=== PATIENT | male | born 1960 | race Two or more races ===

== ENCOUNTER 2019-04-13 12:30 | Inpatient (IN) ==
[2019-04-13] MEDS ORDERED: ONDANSETRON INJ 2 MG/ML 2 ML VIAL IV STA (12:40)
[2019-04-13] MEDS ORDERED: levETIRAcetam 2,000 MG in DEXTROSE 5% 250 ML IV STA (12:40)
[2019-04-13] MEDS ORDERED: fentaNYL citrate 100 MCG/2 ML VIAL IV STA (12:40)
[2019-04-13] MEDS ORDERED: SODIUM CHLORIDE 0.9% 500 ML IV SCH (12:45)
[2019-04-13 13:04] LABS: Basophils # (auto) 0.01 K/uL (0-0.2); Basophils % (auto) 0.2 %; Eosinophils # (auto) 0.05 K/uL (0-0.5); Eosinophils % (auto) 0.8 %; Hematocrit (blood only) 41.2 % (42-52); Hemoglobin 14.8 g/dL (14.0-18.0); Immature Granulocytes # (auto) 0.01 K/uL (0.00-0.02); Immature Granulocytes % (auto) 0.2 %; Lymphocytes # (auto) 2.18 K/uL (1.2-3.4); Lymphocytes % (auto) 34.3 %; Mean Corpuscular Hemoglobin 31.5 pg (25-34); Mean Corpuscular Hgb Conc 35.9 g/dL (32-36); Mean Corpuscular Volume 87.7 fL (80-100); Mean Platelet Volume 11.5 fL (7.4-10.4); Monocytes # (auto) 0.57 K/uL (0.11-0.59); Neutrophils # (auto) 3.54 K/uL (1.4-6.5); Neutrophils % (auto) 55.5 %; Platelet Count 154 K/uL (130-400); RDW Coefficient of Variation 12.2 % (11.5-14.5); RDW Standard Deviation 39.7 fL (36.4-46.3); White Blood Count 6.36 K/uL (4.8-10.8)
--- NOTE | 2019-04-13 13:06 | Emergency Department Note ---
Entered by Joseline Yoo acting as a scribe for Donavan Kim DO History of Present Illness General Chief complaint: Fall Source: patient, EMS and other (custodial guards) History of Present Illness Onset (ago): hour(s) (this afternoon) Location: head Pain Consistency: + other (episode) Quality: + other (fall/seizure) Associated symptoms: + denies other symptoms (specific abdominal or chest pain) and + other (diffuse pain, mid back pain, inability to move legs or toes, numbness/weakness in legs, hypertension) The patient is a 58 year old male that is presenting to the Emergency Room with complaints of an episode of a seizure following a fall that occurred this afternoon. The patients guards report that he fell down 15 stairs and had a seizure. His guards state that the patient was seen bent over at the top of their stairs when he fell forwards. His guards note that the patient did not have a seizure until he reached the bottom of the stairs. EMS reports that the patient was seizing when they arrived. EMS states that the patient received 1 mg -Ativan due to hypertension. EMS notes that the patients blood pressure has since dropped to a normal range. The patient states that he is unable to move his legs or wiggle his toes. He endorses diffuse pain. He denies any specific chest or abdominal pain. He notes that his back pain is mostly located in the middle of his back. He states that his legs are numb, weak, and painful. The patients guards note that the patients speech is slurred and difficult to understand at baseline. The patients guard reports that they believe that the patient is having seizures and not telling anyone. Home Medications Home Medications Medication Instructions Recorded Confirmed Type [id number] 1 tab PO QAM 04/13/19 04/13/19 History [Triumeq] gabapentin 900 mg PO BID 04/13/19 04/13/19 History lactulose 20 g PO QID PRN 04/13/19 04/13/19 History levetiracetam 1,000 mg PO BID 04/13/19 04/13/19 History perphenazine 8 mg PO BID 04/13/19 04/13/19 History sertraline 50 mg PO QAM 04/13/19 04/13/19 History Allergies Allergy/AdvReac Type Severity Reaction Status Date / Time No Known Allergies Allergy Unverified 04/13/19 13:20 Past Med/Surg History Medical History (Updated 04/13/19 @ 18:06 by CARLOS EDUARDO Bettencourt) Esophageal thickening Hepatitis C HIV (human immunodeficiency virus infection) Peripheral neuropathy Pulmonary nodule Surgical History S/P cholecystectomy Family History Mother Diabetes Sister Seizure Other No significant family history Social History Preferred Language: [place] Communication Ability: Effective Beliefs That Will Affect Care: None Current Living Situation: Other Current Living Situation Comment: [facility] 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 and A total of 10 systems reviewed and were otherwise negative Physical Exam Vital Signs Vital Signs - 24 hr 04/13/19 12:36 04/13/19 12:38 04/13/19 12:40 Temperature Temperature Source Pulse Rate 84 77 77 Pulse Rate from SpO2 Sensor 83 Respiratory Rate 15 18 20 Blood Pressure 149/88 H 150/81 H Blood Pressure Mean 98 94 Pulse Oximetry 97 98 Oxygen Delivery Method Room Air Room Air Sepsis Recent Fever Within 48 Hours Sepsis New/Unexplained Change in Mental Status Sepsis Action Taken by Nursing 04/13/19 12:41 04/13/19 12:51 04/13/19 13:00 Temperature 36.5 C Temperature Source Oral Pulse Rate 78 78 Pulse Rate from SpO2 Sensor 80 Respiratory Rate 16 13 Blood Pressure 149/88 H Blood Pressure Mean 108 Pulse Oximetry 97 94 94 Oxygen Delivery Method Room Air Room Air Room Air Sepsis Recent Fever Within 48 Hours No Sepsis New/Unexplained Change in Mental Status No Sepsis Action Taken by Nursing No Action Required 04/13/19 13:24 04/13/19 13:30 04/13/19 14:00 Temperature Temperature Source Pulse Rate 67 66 65 Pulse Rate from SpO2 Sensor 67 66 64 Respiratory Rate 16 12 14 Blood Pressure 149/84 H 166/97 H 159/95 H Blood Pressure Mean 98 110 115 Pulse Oximetry 93 97 98 Oxygen Delivery Method Room Air Room Air Room Air Sepsis Recent Fever Within 48 Hours Sepsis New/Unexplained Change in Mental Status Sepsis Action Taken by Nursing 04/13/19 14:30 04/13/19 14:31 04/13/19 15:00 Temperature Temperature Source Pulse Rate 60 62 80 Pulse Rate from SpO2 Sensor 61 63 80 Respiratory Rate 14 13 16 Blood Pressure 111/57 L Blood Pressure Mean 75 Pulse Oximetry 94 99 99 Oxygen Delivery Method Sepsis Recent Fever Within 48 Hours Sepsis New/Unexplained Change in Mental Status Sepsis Action Taken by Nursing 04/13/19 15:02 04/13/19 15:30 04/13/19 15:31 Temperature Temperature Source Pulse Rate 68 60 63 Pulse Rate from SpO2 Sensor 68 60 63 Respiratory Rate 20 14 15 Blood Pressure 148/86 H 147/77 H Blood Pressure Mean 107 102 Pulse Oximetry 100 99 99 Oxygen Delivery Method Sepsis Recent Fever Within 48 Hours Sepsis New/Unexplained Change in Mental Status Sepsis Action Taken by Nursing 04/13/19 16:00 04/13/19 16:01 Temperature Temperature Source Pulse Rate 62 64 Pulse Rate from SpO2 Sensor 62 64 Respiratory Rate 16 16 Blood Pressure 129/70 Blood Pressure Mean 89 Pulse Oximetry 100 100 Oxygen Delivery Method Sepsis Recent Fever Within 48 Hours Sepsis New/Unexplained Change in Mental Status Sepsis Action Taken by Nursing GENERAL: The patient is awake and alert. He is very anxious appearing and appears to be in pain. He is immobilized in a long spine board. EYES: The conjunctivae are clear. The pupils are round and reactive. EARS, NOSE, MOUTH AND THROAT: No facial trauma or swelling was noted. NECK: There is diffuse tenderness in the cervical spine. Range of motion te sting is deferred at this time. RESPIRATORY: Normal respiratory effort is noted there is no evidence of wheezing rhonchi or rales CARDIOVASCULAR: Regular rate and rhythm noted there no murmurs rubs or gallops normal S1 normal S2. GASTROINTESTINAL: The abdomen is mildly distended but soft. There is no specific tenderness in the upper abdomen. There is mild tenderness in the lower abdomen. BACK: There is diffuse midline tenderness noted to palpation. No step-off is appreciated. MUSCULOSKELETAL/EXTREMITIES: There is no evidence of gross deformity full range of motion is noted in the hips and shoulders. SKIN: There is no obvious evidence of any rash. No significant pedal edema was noted. NEUROLOGIC: Patient is awake alert and oriented x3. Patient is able to push his feet back and forth. He does have pain with testing of the lower extremities so this is deferred at this time until radiographic imaging of the spine can be obtained. Course Course 1232:The patient was evaluated in room B01. A complete history and physical examination was performed. 1500: Upon reevaluation, the patient is more alert. He states that he is unable to walk or bear weight in his legs. He notes that he is forced to sleep in the top bunk in his cell but he cannot get into it. 1508: I discussed the patient's case with [facility], who recommended observation in the hospital if ambulatory status is not improved. 1513: Will attempt an ambulatory trial with the patient to evaluate for discharge to the custodial for further care. 1528: Patient was uanble to complete an ambulatory trial. The patient fell to h is knees before placing his feet on the ground. 1542: I discussed the patients case with CARLOS EDUARDO Bettencourt, who will evaluate the patient for further management and care with Dr. Vides as the attending physician. Administered Medications Discontinued Medications Fentanyl Citrate (Fentanyl Citrate) 50 mcg IV NOW STA Stop: 04/13/19 12:41 Last Admin: 04/13/19 13:24 Dose: 50 mcg Documented by: [id number] Levetiracetam 2,000 mg/ (Dextrose) 270 mls @ 999 mls/hr IV NOW STA Stop: 04/13/19 12:56 Last Infusion: 04/13/19 13:18 Dose: 0 mls/hr Documented by: [id number] Admin: 04/13/19 13:01 Dose: 999 mls/hr Documented by: [id number] Sodium Chloride (Nss) 500 mls @ 999 mls/hr IV .Q31M MARIO Stop: 04/13/19 13:15 Last Infusion: 04/13/19 13:55 Dose: 0 mls/hr Documented by: [id number] Admin: 04/13/19 13:24 Dose: 999 mls/hr Documented by: [id number] Ioversol (Optiray 320 100ml) 93 ml IV ONCE PRN PRN Reason: Interaction Checking Stop: 04/17/19 13:11 Last Admin: 04/13/19 13:12 Dose: 93 ml Documented by: [id number] Ketorolac Tromethamine (Toradol) 10 mg IV NOW ONE Stop: 04/13/19 14:46 Last Admin: 04/13/19 15:01 Dose: 10 mg Documented by: [id number] Ondansetron HCl (Zofran) 4 mg IV NOW STA Stop: 04/13/19 12:41 Last Admin: 04/13/19 13:24 Dose: 4 mg Documented by: [id number] Medical Decision Making Differential Diagnosis Differential diagnoses include major intracranial, cervical, spinal, thoracic, abdominal, pelvic and neurologic injury. Fracture, contusion, sprain, strain, laceration, abrasions included as well. Medical Records Attestation: I reviewed the patient's medical records. Home Medications Current Medication List: was personally reviewed by me Laboratory Data Attestation: I reviewed the patient's lab results. Result diagrams: 04/13/19 12:54 04/13/19 12:54 Lab Results 04/13/19 04/13/19 04/13/19 Range/Units 12:54 12:54 12:54 WBC 6.36 (4.8-10.8) K/uL RBC 4.70 (4.7-6.1) M/uL Hgb 14.8 (14.0-18.0) g/dL POC Hgb (14.0-18.0) g/dl Hct 41.2 L (42-52) % POC Hct (42-52) % MCV 87.7 (80-100) fL MCH 31.5 (25-34) pg MCHC 35.9 (32-36) g/dL RDW Std Deviation 39.7 (36.4-46.3) fL RDW Coeff of Malachi 12.2 (11.5-14.5) % Plt Count 154 (130-400) K/uL MPV 11.5 H (7.4-10.4) fL Immature Gran % (Auto) 0.2 % Neut % (Auto) 55.5 % Lymph % (Auto) 34.3 % Thurston % (Auto) 9.0 % Eos % (Auto) 0.8 % Baso % (Auto) 0.2 % Immature Gran # (Auto) 0.01 (0.00-0.02) K/uL Neut # (Auto) 3.54 (1.4-6.5) K/uL Lymph # (Auto) 2.18 (1.2-3.4) K/uL Thurston # (Auto) 0.57 (0.11-0.59) K/uL Eos # (Auto) 0.05 (0-0.5) K/uL Baso # (Auto) 0.01 (0-0.2) K/uL POC Sodium (135-144) mEq/L Sodium 137 (136-145) mmol/L POC Potassium (3.3-5.0) mEq/L Potassium 3.7 (3.5-5.1) mmol/L POC Chloride (101-112) mEq/L Chloride 104 (98-107) mmol/L Carbon Dioxide 25 (21-32) mmol/L POC Total CO2 (24-31) mEq/l Anion Gap 7.0 (3-11) POC Anion Gap (16-25) mmol/L POC BUN (7-18) mg/dl BUN 11 (7-18) mg/dl Creatinine 1.05 (0.6-1.4) mg/dl POC Creatinine (0.6-1.3) mg/dl Est Cr Clr Drug Dosing 70.3 ml/min Est GFR ( Amer) 89.6 Est GFR (Non-Af Amer) 77.3 BUN/Creatinine Ratio 10.6 (10-20) Glucose 265 H (70-99) mg/dl POC Glucose (other) (70-99) mg/dl Calcium 9.7 (8.5-10.1) mg/dl POC Ioniz Calcium Fidel (1.12-1.32) mmol/l Total Bilirubin 0.8 (0.2-1) mg/dl AST 46 H (15-37) U/L ALT 32 (12-78) U/L Alkaline Phosphatase 174 H (45-117) U/L Troponin I < 0.015 (0-0.045) ng/ml Total Protein 8.3 H (6.4-8.2) gm/dl Albumin 4.0 (3.4-5.0) gm/dl Globulin 4.3 H (2.5-4.0) gm/dl Albumin/Globulin Ratio 0.9 (0.9-2) Prolactin 11.41 ng/ml Urine Color Urine Appearance (Clear) Urine pH (4.5-7.5) Ur Specific Fisk (1.000-1.030) Urine Protein (Negative) Urine Glucose (UA) (Negative) Urine Ketones (Negative) Urine Blood (Negative) Urine Nitrite (Negative) Urine Bilirubin (Negative) Urine Urobilinogen (Negative) Ur Leukocyte Esterase (Negative) Urine WBC (Auto) (0-5) /hpf Urine RBC (Auto) (0-4) /hpf U Hyaline Cast (Auto) (0-5) /lpf U Epithel Cells (Auto) (0-5) /lpf Urine Bacteria (Auto) (Negative) 04/13/19 04/13/19 Range/Units 12:55 14:08 WBC (4.8-10.8) K/uL RBC (4.7-6.1) M/uL Hgb (14.0-18.0) g/dL POC Hgb 14.6 (14.0-18.0) g/dl Hct (42-52) % POC Hct 43 (42-52) % MCV (80-100) fL MCH (25-34) pg MCHC (32-36) g/dL RDW Std Deviation (36.4-46.3) fL RDW Coeff of Malachi (11.5-14.5) % Plt Count (130-400) K/uL MPV (7.4-10.4) fL Immature Gran % (Auto) % Neut % (Auto) % Lymph % (Auto) % Thurston % (Auto) % Eos % (Auto) % Baso % (Auto) % Immature Gran # (Auto) (0.00-0.02) K/uL Neut # (Auto) (1.4-6.5) K/uL Lymph # (Auto) (1.2-3.4) K/uL Thurston # (Auto) (0.11-0.59) K/uL Eos # (Auto) (0-0.5) K/uL Baso # (Auto) (0-0.2) K/uL POC Sodium 138 (135-144) mEq/L Sodium (136-145) mmol/L POC Potassium 3.8 (3.3-5.0) mEq/L Potassium (3.5-5.1) mmol/L POC Chloride 103 (101-112) mEq/L Chloride (98-107) mmol/L Carbon Dioxide (21-32) mmol/L POC Total CO2 24 (24-31) mEq/l Anion Gap (3-11) POC Anion Gap 16.0 (16-25) mmol/L POC BUN 10 (7-18) mg/dl BUN (7-18) mg/dl Creatinine (0.6-1.4) mg/dl POC Creatinine 0.8 (0.6-1.3) mg/dl Est Cr Clr Drug Dosing ml/min Est GFR ( Amer) Est GFR (Non-Af Amer) BUN/Creatinine Ratio (10-20) Glucose (70-99) mg/dl POC Glucose (other) 270 H (70-99) mg/dl Calcium (8.5-10.1) mg/dl POC Ioniz Calcium Fidel 1.20 (1.12-1.32) mmol/l Total Bilirubin (0.2-1) mg/dl AST (15-37) U/L ALT (12-78) U/L Alkaline Phosphatase (45-117) U/L Troponin I (0-0.045) ng/ml Total Protein (6.4-8.2) gm/dl Albumin (3.4-5.0) gm/dl Globulin (2.5-4.0) gm/dl Albumin/Globulin Ratio (0.9-2) Prolactin ng/ml Urine Color Yellow Urine Appearance Clear (Clear) Urine pH 7.5 (4.5-7.5) Ur Specific Fisk 1.027 (1.000-1.030) Urine Protein Negative (Negative) Urine Glucose (UA) 2+ H (Negative) Urine Ketones Negative (Negative) Urine Blood Negative (Negative) Urine Nitrite Negative (Negative) Urine Bilirubin Negative (Negative) Urine Urobilinogen Negative (Negative) Ur Leukocyte Esterase Negative (Negative) Urine WBC (Auto) 0 (0-5) /hpf Urine RBC (Auto) 0-4 (0-4) /hpf U Hyaline Cast (Auto) 0 (0-5) /lpf U Epithel Cells (Auto) 0-5 (0-5) /lpf Urine Bacteria (Auto) Negative (Negative) Imaging Data Radiologist's Impression: Radiology results as stated below per my review and the radiologist's interpretation: ABDOMEN AND PELVIS CT WITH IV CONTRAST CT DOSE: HISTORY: fall TECHNIQUE: Multiaxial CT images of the abdomen and pelvis were performed following the use of intravenous contrast. A dose lowering technique was utilized adhering to the principles of ALARA. COMPARISON STUDY: None. FINDINGS: No pneumoperitoneum. No pneumatosis. No acute fractures within the visualized osseous structures. Cholecystectomy. The liver, spleen, adrenal glands, pancreas, and kidneys are unremarkable. No hydronephrosis. No retroperitoneal lymphadenopathy. There is a left retroaortic renal vein. The bladder is moderately distended. No pelvic free fluid. No bowel wall thickening or obstruction. Normal appendix. IMPRESSION: 1. No acute traumatic process within the abdomen or pelvis. 2. Moderately distended bladder. ACT 112: Negative or not required by law. Electronically signed by: Severiano Mathew M.D. 04/13/2019 2:[address] cervical spine wo con CLINICAL HISTORY: 58 years-old Male with fall. Acute neck injury status post fall COMPARISON: Head CT of same day TECHNIQUE: Multiple axial CT images of the cervical spine were obtained without contrast. A dose lowering technique was utilized adhering to the principles of ALARA. FINDINGS: Demineralized appearance of the bones. Multilevel disc space narrowing, severe at C5-C6 and C6-C7 with moderate disc space narrowing at C4-C5. Multilevel vacuum disc phenomenon with at least moderate spondylitic spurring and posterior disc osteophyte complex formation. Severe multilevel facet arthrosis. Degenerative bony fusion of the left facets at C2-C3. There is mild convex left curvature of the lower cervical spine. Evaluation of the central canal and neuroforamina is better assessed by MRI. Multilevel foraminal narrowing is noted. No definite high-grade central canal stenosis. No prevertebral soft tissue swelling. Calcified plaque of the carotid bulbs. Partially imaged 10 x 9 mm nodular opacity of the right lung apex with eccentric calcification. Please refer to chest CT of same day for further details. IMPRESSION: No acute cervical spine fracture or subluxation. ACT 112: Negative or not required by law. The above report was generated using voice recognition software. It may contain grammatical, syntax or spelling errors. Electronically signed by: Stevan Galarza M.D. 04/13/2019 1:[address] WITH CONTRAST CT DOSE: HISTORY: fall TECHNIQUE: Multiaxial CT images of the chest were performed following the intravenous administration of contrast. A dose lowering technique was utilized adhering to the principles of ALARA. COMPARISON: None. FINDINGS: There is a 9 mm right apical nodular density containing a punctate calcification. This favors scarring. Otherwise, lungs are clear. The central airways are patent. No pleural effusions. No pneumothorax. No fractures within the visualized osseous structures of the chest. Please refer to the same day abdomen and pelvis CT for further evaluation of the abdominal structures. Bilateral gynecomastia, left greater than right. No mediastinal or hilar lym phadenopathy. Mild thickening of the distal esophagus. Normal caliber thoracic aorta with no evidence for dissection. The heart is borderline enlarged. The main pulmonary arteries are patent. No mediastinal hematoma. IMPRESSION: 1. No acute traumatic process within the chest. 2. A 9 mm right apical nodular density containing punctate calcification. This favors scarring. However, [address] follow-up is recommended to ensure stability. 3. Mild thickening of the distal esophagus. Follow-up nonemergent endoscopy can be used for further evaluation. ACT 112: Positive. There are findings on this exam that require communication between the performing entity and the patient following Patient Test Result Information Act ([place] Act 112) guidelines. Electronically signed by: Severiano Mathew M.D. 04/13/2019 1:[address] head/brain wo con CT DOSE: HISTORY: Trauma. Mental status change. fall TECHNIQUE: Multiaxial CT images of the head were performed without the use of intravenous contrast. A dose lowering technique was utilized adhering to the principles of ALARA. Comparison: None. Findings: The paranasal sinuses and mastoid air cells are clear. The calvarium and skull base are intact. The ventricles and sulci are within normal limits. There is no mass, hematoma, midline shift, or acute infarct. Impression: No acute intracranial abnormality. ACT 112: Negative or not required by law. The above report was generated using voice recognition software. It may contain grammatical, syntax or spelling errors. Electronically signed by: Cooper Cochran M.D. 04/13/2019 1:[address] lumbar spine wo con HISTORY: 58 years-old Male fall acute low back pain status post fall COMPARISON: CT abdomen and pelvis of same day TECHNIQUE: Multiple axial CT images of the cervical spine were obtained without the use of IV contrast. A dose lowering technique was used consistent with the principals of ALARA. FINDINGS: Mild lumbar levoscoliosis. Severe L4-L5 facet arthrosis. 4 mm anterolisthesis L4 on L5 is likely secondary to long-standing facet arthropathy. Multilevel posterior disc osteophyte complex formations. Mild degenerative changes of the SI joints. Evaluation of the central canal and neuroforamina is better assessed by MRI. No acute fracture or subluxation identified. No high-grade central canal stenosis. There is at least mild bilateral foraminal narrowing at L4-L5. Calcified plaque the abdominal aorta. Urinary bladder distention. IMPRESSION: No acute fracture or subluxation. ACT 112: Negative or not required by law. The above report was generated using voice recognition software. It may contain grammatical, syntax or spelling errors. Electronically signed by: Stevan Galarza M.D. 04/13/2019 1:[address] thoracic spine wo con CT DOSE: 2797.77 mGy.cm HISTORY: Trauma. Pain. fakll TECHNIQUE: Multiaxial CT images of the thoracic spine were performed and reformatted in the sagittal and coronal plane without the use of contrast. A dose lowering technique was utilized adhering to the principles of ALARA. COMPARISON: None. FINDINGS: No fractures. No subluxation. Paraspinal soft tissues are unremarkable. Moderate generalized degenerative disc changes throughout. IMPRESSION: No fractures within the thoracic spine. Moderate generalized degenerative disc change. ACT 112: Negative or not required by law. The above report was generated using voice recognition software. It may contain grammatical, syntax or spelling errors. Electronically signed by: Cooper Cochran M.D. 04/13/2019 1:43 PM ECG Data Attestation: I personally reviewed and interpreted this ECG as follows: Indication: + other (trauma) Rate (beats per minute): 70 Rhythm: + normal sinus ECG ST segments: no ST depression and no ST elevation ECG Findings: no PACs and no PVCs Comparison ECG Date: no prior available Blood Pressure Blood Pressure Findings: Elevated blood pressure Blood Pressure Disposition: Referred to patients primary care provider [facility] Narrative The patient is a 58-year-old male who presented to the emergency department after a fall. The history is somewhat limited. It appears the patient has a seizure history and states that he is compliant with his medications. The patient had a fall down multiple stairs. He had signs of head trauma. He states he had very severe back pain and difficulty moving his legs. He did have signs of urinary retention but was able to urinate and empty out most of his bladder. I discussed the patient's laboratory and radiographic studies with him. He was reevaluated multiple times. He was not found to have any acute f racture in the cervical thoracic or lumbar spine. There is no signs of intercranial trauma. The patient tried to ambulate but had significant weakness. It is difficult to determine if this is a chronic finding for the patient. I discussed his condition with the [facility] and they were uncomforta ble with the patient coming back if he could not ambulate at his baseline. It is difficult to tell what his baseline is. For this reason I discussed his case with the on-call [facility] hospitalist group. They have agreed to evaluate the patient in the emergency department for further management and disposition. Impression & Plan Seizure, Fall, Head injury, Lower extremity weakness Discharge Plan Visit Data *Final* Discharge Date/Time: 04/13/19 17:02 Chief Complaint: Fall ED Provider: Donavan Kim Discharge Problem: Seizure, Fall, Head injury, Lower extremity weakness Patient Disposition: Admitted As Inpatient Discharge Instructions Interventions: ED Discharge Assessment Last Done: 04/13/19 17:02 The scribe's documentation has been prepared under my direction and personally reviewed by me in its entirety. I confirm that the note above accurately reflects all work, treatment, procedures, and medical decision making performed by me.
[2019-04-13 13:10] LABS: iSTAT Creatinine 0.8 mg/dl (0.6-1.3); iSTAT Hemoglobin 14.6 g/dl (14.0-18.0); iSTAT Ionized Calcium 1.2 mmol/l (1.12-1.32); iSTAT Potassium 3.8 mEq/L (3.3-5.0)
[2019-04-13] MEDS ORDERED: IOVERSOL 100ml IV PRN (13:12)
--- NOTE | 2019-04-13 13:23 | CT Scan Report ---
CT head/brain wo con CT DOSE: HISTORY: Trauma. Mental status change. fall TECHNIQUE: Multiaxial CT images of the head were performed without the use of intravenous contrast. A dose lowering technique was utilized adhering to the principles of ALARA. Comparison: None. Findings: The paranasal sinuses and mastoid air cells are clear. The calvarium and skull base are int act. The ventricles and sulci are within normal limits. There is no mass, hematoma, midline shift, or acute infarct. Impression: No acute intracranial abnormality. ACT 112: Negative or not required by law. The above report was generated using voice recognition software. It may contain grammatical, syntax or spelling errors. Electronically signed by: Cooper Cochran M.D. 04/13/2019 1:22 PM
[2019-04-13 13:27] LABS: Alanine Aminotransferase 32 U/L (12-78); Albumin Globulin Ratio 0.9 (0.9-2); Alkaline Phosphatase 174 U/L (45-117); Aspartate Aminotransferase 46 U/L (15-37); BUN Creatinine Ratio 10.6 (10-20); Bilirubin,Total 0.8 mg/dl (0.2-1); Blood Urea Nitrogen 11 mg/dl (7-18); Calcium 9.7 mg/dl (8.5-10.1); Carbon Dioxide 25 mmol/L (21-32); Chloride 104 mmol/L (98-107); Creatinine Clr Calc Pharmacy 70.3 ml/min; Est GFR (African American) 89.6; Est GFR (Non-African American) 77.3; Globulin 4.3 gm/dl (2.5-4.0); Glucose 265 mg/dl (70-99); Potassium 3.7 mmol/L (3.5-5.1); Sodium 137 mmol/L (136-145); Total Protein 8.3 gm/dl (6.4-8.2); Troponin I < 0.015 ng/ml (0-0.045)
--- NOTE | 2019-04-13 13:33 | CT Scan Report ---
CT cervical spine wo con CLINICAL HISTORY: 58 years-old Male with fall. Acute neck injury status post fall COMPARISON: Head CT of same day TECHNIQUE: Multiple axial CT images of the cervical spine were obtained without contrast. A dose low ering technique was utilized adhering to the principles of ALARA. FINDINGS: Demineralized appearance of the bones. Multilevel disc space narrowing, severe at C5-C6 and C6-C7 wit h moderate disc space narrowing at C4-C5. Multilevel vacuum disc phenomenon with at least moderate sp ondylitic spurring and posterior disc osteophyte complex formation. Severe multilevel facet arthrosis . Degenerative bony fusion of the left facets at C2-C3. There is mild convex left curvature of the lo wer cervical spine. Evaluation of the central canal and neuroforamina is better assessed by MRI. Mult ilevel foraminal narrowing is noted. No definite high-grade central canal stenosis. No prevertebral s oft tissue swelling. Calcified plaque of the carotid bulbs. Partially imaged 10 x 9 mm nodular opacit y of the right lung apex with eccentric calcification. Please refer to chest CT of same day for furth er details. IMPRESSION: No acute cervical spine fracture or subluxation. ACT 112: Negative or not required by law. The above report was generated using voice recognition software. It may contain grammatical, syntax o r spelling errors. Electronically signed by: Stevan Galarza M.D. 04/13/2019 1:32 PM
--- NOTE | 2019-04-13 13:43 | CT Scan Report ---
CT lumbar spine wo con HISTORY: 58 years-old Male fall acute low back pain status post fall COMPARISON: CT abdomen and pelvis of same day TECHNIQUE: Multiple axial CT images of the cervical spine were obtained without the use of IV contras t. A dose lowering technique was used consistent with the principals of VITA. FINDINGS: Mild lumbar levoscoliosis. Severe L4-L5 facet arthrosis. 4 mm anterolisthesis L4 on L5 is likely seco ndary to long-standing facet arthropathy. Multilevel posterior disc osteophyte complex formations. Mi ld degenerative changes of the SI joints. Evaluation of the central canal and neuroforamina is better assessed by MRI. No acute fracture or subluxation identified. No high-grade central canal stenosis. There is at least mild bilateral foraminal narrowing at L4-L5. Calcified plaque the abdominal aorta. Urinary bladder distention. IMPRESSION: No acute fracture or subluxation. ACT 112: Negative or not required by law. The above report was generated using voice recognition software. It may contain grammatical, syntax o r spelling errors. Electronically signed by: Stevan Galarza M.D. 04/13/2019 1:42 PM
--- NOTE | 2019-04-13 13:44 | CT Scan Report ---
CT thoracic spine wo con CT DOSE: 2797.77 mGy.cm HISTORY: Trauma. Pain. fakll TECHNIQUE: Multiaxial CT images of the thoracic spine were performed and reformatted in the sagittal and coronal plane without the use of contrast. A dose lowering technique was utilized adhering to th e principles of ALARA. COMPARISON: None. FINDINGS: No fractures. No subluxation. Paraspinal soft tissues are unremarkable. Moderate generalize d degenerative disc changes throughout. IMPRESSION: No fractures within the thoracic spine. Moderate generalized degenerative disc change. ACT 112: Negative or not required by law. The above report was generated using voice recognition software. It may contain grammatical, syntax or spelling errors. Electronically signed by: Cooper Cochran M.D. 04/13/2019 1:43 PM
--- NOTE | 2019-04-13 13:49 | CT Scan Report ---
CHEST CT WITH CONTRAST CT DOSE: HISTORY: fall TECHNIQUE: Multiaxial CT images of the chest were performed following the intravenous administration of contrast. A dose lowering technique was utilized adhering to the principles of ALARA. COMPARISON: None. FINDINGS: There is a 9 mm right apical nodular density containing a punctate calcification. This favo rs scarring. Otherwise, lungs are clear. The central airways are patent. No pleural effusions. No pne umothorax. No fractures within the visualized osseous structures of the chest. Please refer to the abdomen and pelvis CT for further evaluation of the abdominal structures. Bilateral gynecomast ia, left greater than right. No mediastinal or hilar lymphadenopathy. Mild thickening of the distal e sophagus. Normal caliber thoracic aorta with no evidence for dissection. The heart is borderline enla rged. The main pulmonary arteries are patent. No mediastinal hematoma. IMPRESSION: 1. No acute traumatic process within the chest. 2. A 9 mm right apical nodular density containing punctate calcification. This favors scarring. [facility] er, [address] follow-up is recommended to ensure stability. 3. Mild thickening of the distal esophagus. Follow-up nonemergent endoscopy can be used for further e valuation. ACT 112: Positive. There are findings on this exam that require communication between the performing entity and the patient following Patient Test Result Information Act ([place] Act 112) guidelines. Electronically signed by: Severiano Mathew M.D. 04/13/2019 1:47 PM
--- NOTE | 2019-04-13 14:06 | CT Scan Report ---
ABDOMEN AND PELVIS CT WITH IV CONTRAST CT DOSE: HISTORY: fall TECHNIQUE: Multiaxial CT images of the abdomen and pelvis were performed following the use of intrave nous contrast. A dose lowering technique was utilized adhering to the principles of ALARA. COMPARISON STUDY: None. FINDINGS: No pneumoperitoneum. No pneumatosis. No acute fractures within the visualized osseous struc tures. Cholecystectomy. The liver, spleen, adrenal glands, pancreas, and kidneys are unremarkable. No hydronephrosis. No retroperitoneal lymphadenopathy. There is a left retroaortic renal vein. The blad nick is moderately distended. No pelvic free fluid. No bowel wall thickening or obstruction. Normal ap pendix. IMPRESSION: 1. No acute traumatic process within the abdomen or pelvis. 2. Moderately distended bladder. ACT 112: Negative or not required by law. Electronically signed by: Severiano Mathew M.D. 04/13/2019 2:04 PM
[2019-04-13 14:26] LABS: Appearance Urine Clear (Clear); Bacteria Urine Automated Negative (Negative); Bilirubin Urine Negative (Negative); Blood Urine Negative (Negative); Cast Urine Automated 0 /lpf (0-5); Color Urine Yellow; Epithelial Cell Urine Auto 0-5 /lpf (0-5); Glucose Urine UA 2+ (Negative); Ketones Urine Negative (Negative); Leukocyte Esterase Urine Negative (Negative); Nitrite Urine Negative (Negative); RBC Urine Automated 0-4 /hpf (0-4); Specific Gravity Urine 1.027 (1.000-1.030); Urobilinogen Urine Negative (Negative); WBC Urine Automated 0 /hpf (0-5); pH Urine 7.5 (4.5-7.5)
[2019-04-13] MEDS ORDERED: KETOROLAC TROMETHAMINE 15 MG/ML VIAL IV ONE (14:45)
[2019-04-13 14:53] LABS: Protein Urine Negative (Negative); Sulfosalicylic Acid Urine Negative (Negative)
--- NOTE | 2019-04-13 16:57 | History & Physical Report ---
Date of Service April 13, 2019 Assessment & Plan (1) Seizure: -Admit to telemetry -Patient presenting to ED from [facility] for evaluation of seizure -History of seizure disorder, currently managed on Keppra -In the ED, head CT negative for acute findings -Received Keppra 2 g IV load -Seizure precautions -neuro consult, case discussed with Allyn Piña PA-C; will obtain brain MRI, EEG, continue home dose of Keppra for now -PRN Ativan for breakthrough seizure (2) Hyperglycemia: -Glucose noted to be 265 on labs -Possibly stress response secondary to seizure -Check Hgb A1c -Recheck BSG and provide NovoLog if needed (3) Peripheral neuropathy: (4) Ambulatory dysfunction: -Patient reports worsening of peripheral neuropathy since seizure today causing him the inability to bear weight on both legs -CT imaging of C-spine, thoracic spine, lumbar spine all negative for acute findings -Continue home dose of gabapentin -PT/OT (5) HIV (human immunodeficiency virus infection): (6) Hepatitis C: -HIV medication Triumeq requested to be sent from [facility] -Patient declines treatment for hepatitis C -Labs obtained from [facility] from 03/27/2019 show CD4 count 928, viral load <40, HCV RNA 9 million (7) DVT prophylaxis: -SCDs History of Present Illness Chief Complaint: Seizure Primary Care Provider: [facility] 58 year old male who presents to the ED for evaluation of seizure. Patient with history of HIV and seizure disorder. Patient reports he thinks he had a seizure throughout the night because he woke up with a laceration over his left eyebrow and there was some blood on the bed rail. Today, patient reports he was walking up the stairs when he started to feel lightheaded and his "tongue began to twist". The next thing he knew he was falling backwards and had an apparent seizure per reports. Patient reports he did bite his tongue. No loss of bowel or bladder function. Reports he otherwise has been feeling well recently. Says he has been compliant with all medications. No recent illnesses, fever, or chills. Denies chest cary and shortness of breath. No abdominal pain, nausea, vomiting, or diarrhea. Denies urinary symptoms. Patient has history of peripheral neuropathy typically managed with gabapentin. In the ED, head CT is negative for acute findings. Cervical spine, chest, ABD/pelvis, thoracic, lumbar CTs are all negative for acute findings. Labs are unremarkable. Patient is hemodynamically stable. Patient reports that since his seizure today, the neuropathy in his feet has severely worsened and he is unable to bear weight. Patient was given IV fentanyl, IV ketorolac, IV Keppra, IV Zofran, IVF. Allergies Allergy/AdvReac Type Severity Reaction Status Date / Time No Known Allergies Allergy Unverified 04/13/19 13:20 Home Medications Home Medications Medication Instructions Recorded Confirmed Type rgaaasje-qpmhugrwjpdk-irhtifh 1 tab PO QAM 04/13/19 04/13/19 History [Triumeq] gabapentin 900 mg PO BID 04/13/19 04/13/19 History lactulose 20 g PO QID PRN 04/13/19 04/13/19 History levetiracetam 1,000 mg PO BID 04/13/19 04/13/19 History perphenazine 8 mg PO BID 04/13/19 04/13/19 History sertraline 50 mg PO QAM 04/13/19 04/13/19 History Past Med/Surg History Medical History (Updated 04/13/19 @ 18:06 by CARLOS EDUARDO Bettencourt) Esophageal thickening Hepatitis C HIV (human immunodeficiency virus infection) Peripheral neuropathy Pulmonary nodule Surgical History S/P cholecystectomy Family History Mother Diabetes Sister Seizure Other No significant family history Social History Preferred Language: Armenian Communication Ability: Effective Beliefs That Will Affect Care: None Current Living Situation: Other Current Living Situation Comment: [facility] 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 Other Information That Helps Us Care for You: No Feels Safe at Home: Yes Smoking Status: Former smoker Hx Alcohol Use: No Hx Substance Use: Yes substance use type: crack/cocaine and heroin Last Used Substance Other:: ~ 2011 Review of Systems Review of Systems: ROS per HPI, all other systems reviewed and negative Physical Exam Constitutional: WD/WN, vitals as above Eyes: PERRL, conjunctivae normal, anicteric sclerae ENMT: external ear and nose normal, oropharynx normal Respiratory: normal respiratory effort, lungs clear to auscultation Cardiovascular: Rate/Rhythm: regular rate and regular rhythm Vessels: n ormal peripheral pulses Extremities: no edema Gastrointestinal (Abdomen): normal bowel sounds, soft, nontender, no hepatosplenomegaly Musculoskeletal: Extremities: no cyanosis and no clubbing Strength 4/5 throughout Skin: no rashes, warm and dry Trauma: + abrasion (Small abrasion noted over left superior orbital bone) Neurologic: PERRL, EOMI, accommodation nl, no face palsy, no dysarthria moves all extremities and awake; no focal motor deficits Motor/Sensory: no pronator drift Psychiatric: A+Ox3, euthymic affect Results & Data Vital Signs (Past 12 Hours) Vital Signs Temp Pulse Resp BP Pulse Ox 04/13/19 16:01 64 16 129/70 100 04/13/19 16:00 62 16 100 04/13/19 15:31 63 15 147/77 H 99 04/13/19 15:30 60 14 99 04/13/19 15:02 68 20 148/86 H 100 04/13/19 15:00 80 16 99 04/13/19 14:31 62 13 111/57 L 99 04/13/19 14:30 60 14 94 04/13/19 14:00 65 14 159/95 H 98 04/13/19 13:30 66 12 166/97 H 97 04/13/19 13:24 67 16 149/84 H 93 04/13/19 13:00 78 13 94 04/13/19 12:51 94 04/13/19 12:41 36.5 C 78 16 149/88 H 97 04/13/19 12:40 77 20 04/13/19 12:38 77 18 150/81 H 98 04/13/19 12:36 84 15 149/88 H 97 Laboratory Results Short CBC 04/13/19 Range/Units 12:54 WBC 6.36 (4.8-10.8) K/uL Hgb 14.8 (14.0-18.0) g/dL Hct 41.2 L (42-52) % Plt Count 154 (130-400) K/uL BMP 04/13/19 12:54 Sodium 137 Potassium 3.7 Chloride 104 Carbon Dioxide 25 BUN 11 Creatinine 1.05 Glucose 265 H Calcium 9.7 Cardiac Enzymes 04/13/19 Range/Units 12:54 Troponin I < 0.015 (0-0.045) ng/ml Liver Function 04/13/19 Range/Units 12:54 Total Bilirubin 0.8 (0.2-1) mg/dl AST 46 H (15-37) U/L ALT 32 (12-78) U/L Alkaline Phosphatase 174 H (45-117) U/L Albumin 4.0 (3.4-5.0) gm/dl Urine 04/13/19 Range/Units 14:08 Urine Color Yellow Urine Appearance Clear (Clear) Urine pH 7.5 (4.5-7.5) Ur Specific [place] 1.027 (1.000-1.030) Urine Protein Negative (Negative) Urine Glucose (UA) 2+ H (Negative) Diagnostic Findings THORACIC SPINE CT IMPRESSION: No fractures within the thoracic spine. Moderate generalized degenerative disc change. LUMBAR SPINE CT IMPRESSION: No acute fracture or subluxation. HEAD CT IMPRESSION: No acute intracranial abnormality. CHEST CT IMPRESSION: 1. No acute traumatic process within the chest. 2. A 9 mm right apical nodular density containing punctate calcification. This favors scarring. However, [address] follow-up is recommended to ensure stability. 3. Mild thickening of the distal esophagus. Follow-up nonemergent endoscopy can be used for further evaluation. CERVICAL SPINE CT IMPRESSION: No acute cervical spine fracture or subluxation. CT ABD/PELVIS IMPRESSION: 1. No acute traumatic process within the abdomen or pelvis. 2. Moderately distended bladder. Code Status & VTE Plan Code Status Patient is a full code as per my discussion with him. VTE Prophylaxis Plan VTE Prophylaxis will be ordered: Yes Supervising Physician Co-Signing Physician Notes HISTORY: Record reviewed. Patient interviewed and examined in ED. Care coordinated with CARLOS EDUARDO Bettencourt. Please refer to her documentation for complete history. Briefly, 58 YO male with history of seizure disorder, HIV, hep C, cirrhosis, and other problems. Brought to ED because of 2 apparent seizures. Denies fever. Mild headache. No focal neuro symptoms. EXAM: General- no distress HEENT- abrasion left forehead; sclerae anicteric Lungs- clear to auscultation; no respiratory distress Cardiovascular- RRR; no murmur; no gallop; no JVD; no pretibial edema Abdomen- + bowel sounds, soft, nontender Extremities- no cyanosis; no calf tenderness Neuro- alert, oriented; PERRL, EOMI; no facial palsy; no dysarthria or aphasia; motor 5/5 bilat Skin- warm & dry DATA: Hemoglobin 14.8, white count 6360, platelet count 154,000. Normal electrolytes, BUN 11, creatinine 1.05, random glucose 265. Total bilirubin 0.8, AST 46, ALT 32, alkaline phosphatase 174. Other lab studies as noted. CT head unremarkable per Radiology. CT cervical spine did not show any fracture or subluxation. CT thoracic spine did not show any fractures or subluxation. Moderate degenerative disc disease noted. CT lumbar spine demonstrated mild lumbar levoscoliosis, severe L4-L5 facet arthrosis, 4 mm anterolisthesis L4-L5, multilevel disc osteophyte complex formations, mild degenerative changes of SI joints. CT chest negative for traumatic injury. 9 mm right apical nodular density with punctate calcification noted. Follow-up CT in 6 months recommended. Mild thickening of distal esophagus was also noted. CT of abdomen pelvis negative for thoracic injury or other significant findings. EKG performed at 1249 reviewed and demonstrated normal sinus rhythm at 70 / minute, no acute changes. ASSESSMENT AND PLAN: Recurrent seizure. No acute abnormalities on CT head. Check MRI. Continue levetiracetam. Seizure precautions. Consult Neurology. History of HIV. Continue antiviral therapy with Triumeq. Recent viral load was undetectable. History of hepatitis C with associated cirrhosis. Patient is opted not to receive antiviral therapy. Right apical pulmonary nodule noted on CT. Consult Pulmonary Medicine. Thickening of distal esophagus noted on CT. Patient reports dysphagia. Consult GI. Please refer to BRANDY Ye's documentation for discussion of other issues.
[2019-04-13] MEDS ORDERED: LORazepam 1 MG/2 ML VIAL IV PRN (17:37)
[2019-04-13] MEDS ORDERED: GLUCOSE 10 TABS/TUBE PO PRN (18:06)
[2019-04-13] MEDS ORDERED: GLUCOSE 40% GEL 15 GM TUBE PO PRN (18:06)
[2019-04-13] MEDS ORDERED: DEXTROSE 50% 50 ML SYRINGE IV PRN (18:06)
[2019-04-13] MEDS ORDERED: GLUCAGON FOR INJ 1 MG VIAL SQ PRN (18:06)
[2019-04-13] MEDS ORDERED: CARBOHYDRATES FOR HYPOGLYCEMIA PO PRN (18:06)
[2019-04-13] MEDS: PERPHENAZINE 2 MG TABLET PO SCH (20:57)
[2019-04-13] MEDS: GABAPENTIN 300 MG CAP PO SCH (20:58)
[2019-04-13] MEDS: levETIRAcetam 500 MG TAB PO SCH (20:58)
[2019-04-13] MEDS: INSULIN ASPART 100 UNITS/ML 3 ML PEN SC SCH (21:00)
[2019-04-13] MEDS ORDERED: LORazepam 0.5 MG/1 ML VIAL IV STA (22:05)
[2019-04-13] MEDS ORDERED: GADOBUTROL 65ML VIAL IV PRN (23:05)
--- NOTE | 2019-04-14 06:29 | Magnetic Resonance Report ---
MR brain seizure wo/w con CLINICAL HISTORY: seizure mental status change COMPARISON STUDY: No previous studies for comparison. TECHNIQUE: Utilizing a 1.5 Yasemin magnet and dedicated coil, multiplanar, multiecho imaging of the br ain was performed pre and postcontrast administration. IV administration of 8 mL of Gadavist contras t was uneventful. Thin cut coronal T2 imaging was performed according to seizure protocol. FINDINGS: Diffusion images show no evidence for an acute ischemic process. Several small foci of incr eased signal within the periventricular deep white matter regions probably secondary to age-related c hronic small vessel change. Mild component of cerebral atrophy. The ventricular system is midline. Sella and parasellar regions are unremarkable. IMPRESSION: No acute process for age. ACT 112: Negative or not required by law. The above report was generated using voice recognition software. It may contain grammatical, syntax or spelling errors. Electronically signed by: Cooper Cochran M.D. 04/14/2019 6:28 AM
[2019-04-14 06:34] LABS: Hematocrit (blood only) 42.9 % (42-52); Hemoglobin 15.2 g/dL (14.0-18.0); Mean Corpuscular Hemoglobin 32.1 pg (25-34); Mean Corpuscular Hgb Conc 35.4 g/dL (32-36); Mean Corpuscular Volume 90.7 fL (80-100); Mean Platelet Volume 11.5 fL (7.4-10.4); Platelet Count 148 K/uL (130-400); RDW Coefficient of Variation 12.4 % (11.5-14.5); RDW Standard Deviation 41.5 fL (36.4-46.3); Red Blood Count 4.73 M/uL (4.7-6.1); White Blood Count 6.02 K/uL (4.8-10.8)
[2019-04-14 06:58] LABS: Estimated Average Glucose 209 mg/dl; Hemoglobin A1C 8.9 % (4.5-5.6)
[2019-04-14 07:08] LABS: BUN Creatinine Ratio 12.8 (10-20); Calcium 8.9 mg/dl (8.5-10.1); Creatinine Clr Calc Pharmacy 62.1 ml/min; Est GFR (Non-African American) 70.8; Potassium 3.8 mmol/L (3.5-5.1)
[2019-04-14] MEDS: GABAPENTIN 300 MG CAP PO SCH (08:27)
[2019-04-14] MEDS: levETIRAcetam 500 MG TAB PO SCH ×2 (08:27→21:04)
[2019-04-14] MEDS: PERPHENAZINE 2 MG TABLET PO SCH ×2 (08:27→22:42)
[2019-04-14] MEDS: SERTRALINE HCL 50 MG TABLET PO SCH (08:27)
[2019-04-14] MEDS: INSULIN ASPART 100 UNITS/ML 3 ML PEN SC SCH ×4 (08:29→21:06)
[2019-04-14] MEDS: TRIUMEQ PO SCH (09:14)
--- NOTE | 2019-04-14 09:27 | Gastrointestinal Consultation ---
Date of Consultation April 14, 2019 Assessment & Plan (1) Esophageal thickening: Pt is asymptomatic (report of coughing/gagging with swallowing more likely related to having few teeth and not using dentures). He does not c/o any discomfort or feeling of food being lodged in the lower chest after swallowing. He is at risk for esophageal cancer in light of his hx of HIV. He is also at risk for esophageal candidiasis but does not seem to have symptoms suggesting that (nausea, lower esophageal dysphagia). Plan: 1. Will arrange OP EGD in 4 weeks here at [facility]. Our office will call [facility] to arrange. 2. Consider daily Miralax for constipation. 3. GI will sign off. Please notify us if new/worsened GI issues. Present on Admission?: Yes Supervising Physician Co-Signing Physician Notes I performed a history and physical examination of the patient, including specifically on physical exam - soft, nontender abdomen. I have discussed the patient's management with Rodriguez. Please refer to the nurse practitioner's note for the documented findings and plan of care. 58 years old male patient found to have incidental esophageal thickening on CT scan, he is asymptomatic. Recommend: EGD as OP. Recall Gi if needed. History of Present Illness Reason for Consultation: Esophageal thickening Requesting Physician: Patito Ye NP/Dr. Lino Attending Physician: Checo Lino MD History of Present Illness Mr. Td Cyr is a 58 yr old male prisoner at [facility] with a hx of HIV, Seizures, DM-2, insulin requiring, diabetic neuropathy who was brought to [facility] for a fall followed by a witnessed seizure. GI is consulted because CT of the chest suggested esophageal thickening. The pt has poor dentition and tells me that he often gags or coughs out food when trying to swallow but does not have any feeling of food being stuck in the lower chest. He also denies any pain in the throat or chest during or after swallowing. He has had some reflux, but very rarely, maybe once a month or so. When asked, if he eats soft/liquid foods due to limited dentition, he states "no," that he, "doesn't like those." Allergies Allergy/AdvReac Type Severity Reaction Status Date / Time No Known Allergies Allergy Unverified 04/13/19 13:20 Home Medications Home Medications Medication Instructions Recorded Confirmed Type wvpntsja-plcgiazfloud-hwpptcl 1 tab PO QAM 04/13/19 04/13/19 History [Triumeq] gabapentin 900 mg PO BID 04/13/19 04/13/19 History lactulose 20 g PO QID PRN 04/13/19 04/13/19 History levetiracetam 1,000 mg PO BID 04/13/19 04/13/19 History perphenazine 8 mg PO BID 04/13/19 04/13/19 History sertraline 50 mg PO QAM 04/13/19 04/13/19 History Patient History Medical History (Updated 04/13/19 @ 18:06 by CARLOS EDUARDO Bettencourt) Esophageal thickening Hepatitis C HIV (human immunodeficiency virus infection) Peripheral neuropathy Pulmonary nodule Surgical History S/P cholecystectomy Family History Mother Diabetes Sister Seizure Other No significant family history Social History Preferred Language: Latvian Communication Ability: Effective Beliefs That Will Affect Care: None Current Living Situation: Other Current Living Situation Comment: [facility] 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 ) and + constipation (Tells me that he hasn't passed a BM in 7 days, that he sometimes doesn't pass a BM for months. ) Musculoskeletal: + muscle weakness (reports bilateral lower leg and foot pain, weakness and decreased sensation) Integumentary: no rash Neurologic: + falls Psychiatric: no problem reported Physical Exam Constitutional: WD/WN, vitals as above Eyes: PERRL, conjunctivae normal, anicteric sclerae ENMT: Few teeth, no lower molars, no upper incisors, only a few upper molars. No evidence of oral thrush. Neck: trachea midline, no thyromegaly Respiratory: normal respiratory effort, lungs clear to auscultation Cardiovascular: RRR, no murmur, no edema Gastrointestinal (Abdomen): normal bowel sounds, soft, nontender, no hepatosplenomegaly Skin: no rashes, warm and dry Neurologic: PERRL, EOMI, accommodation nl, no face palsy, no dysarthria Psychiatric: A+Ox3, euthymic affect Results & Data Vital Signs (Past 12 Hours) Vital Signs Temp Pulse Pulse Resp BP Pulse Ox 04/14/19 07:31 36.5 C 77 19 128/79 97 04/14/19 06:19 36.5 C 63 20 131/71 98 04/14/19 04:16 36.5 C 65 19 122/79 95 04/14/19 01:52 69 04/13/19 23:13 36.6 C 67 18 122/75 97 Laboratory Results WBC 6, Hb 15,Hct 42, Platelets 152, Na 136, K 3.8, BUN 4, Cr1.13, glucose 168. Diagnostic Findings CT chest 04/13/19: 1. No acute traumatic process within the chest. 2. A 9 mm right apical nodular density containing punctate calcification. This favors scarring. However, [address] follow-up is recommended to ensure stability. 3. Mild thickening of the distal esophagus. Follow-up nonemergent endoscopy can be used for further evaluation.
--- NOTE | 2019-04-14 10:27 | Electroencephalogram ---
EEG Procedure Note Date of Service April 14, 2019 Start / End Times Start Time: 0842 End Time: 0902 Referring Physician Patito THIBODEAUX History Breakthrough seiz Home Medication List Home Medications Medication Instructions Recorded Confirmed Type [id number] 1 tab PO QAM 04/13/19 04/13/19 History [Triumeq] gabapentin 900 mg PO BID 04/13/19 04/13/19 History lactulose 20 g PO QID PRN 04/13/19 04/13/19 History levetiracetam 1,000 mg PO BID 04/13/19 04/13/19 History perphenazine 8 mg PO BID 04/13/19 04/13/19 History sertraline 50 mg PO QAM 04/13/19 04/13/19 History Inpatient Medication List Gabapentin (Neurontin) 900 mg PO BID [facility] Stop: 05/13/19 20:59 Last Admin: 04/14/19 08:27 Dose: 900 mg Documented by: [id number] Admin: 04/13/19 20:58 Dose: 900 mg Documented by: [id number] Gadobutrol (Gadavist 65ml) 8 ml IV ONCE PRN PRN Reason: Interaction Checking Stop: 04/17/19 23:04 Last Admin: 04/13/19 23:05 Dose: 8 ml Documented by: [id number] Lorazepam (Ativan) 1 mg in 2 mls @ 2 mls/min IV Q4H PRN PRN Reason: seizure Stop: 05/13/19 17:36 Last Admin: 04/13/19 22:15 Dose: 2 mls/min Documented by: [id number] Insulin Aspart (Novolog Flexpen) 0 units SC ACHS [facility] Stop: 05/13/19 20:59 Last Admin: 04/14/19 08:29 Dose: 3 units Documented by: [id number] Cosigned by: [id number] Admin: 04/13/19 21:00 Dose: 2 units Documented by: [id number] Cosigned by: [id number] Levetiracetam (Keppra) 1,000 mg PO BID [facility] Stop: 05/13/19 20:59 Last Admin: 04/14/19 08:27 Dose: 1,000 mg Documented by: [id number] Admin: 04/13/19 20:58 Dose: 1,000 mg Documented by: [id number] Triumeq: Non- Formulary Patient's Own Med 1 ea PO QAM [facility]; Protocol Stop: 05/14/19 08:59 Last Admin: 04/14/19 09:14 Dose: 1 ea Documented by: [id number] Perphenazine (Trilafon) 8 mg PO BID [facility] Stop: 05/13/19 20:59 Last Admin: 04/14/19 08:27 Dose: 8 mg Documented by: [id number] Admin: 04/13/19 20:57 Dose: 8 mg Documented by: [id number] Sertraline HCl (Zoloft) 50 mg PO QAM [facility] Stop: 05/14/19 08:59 Last Admin: 04/14/19 08:27 Dose: 50 mg Documented by: [id number] Discontinued Medications Fentanyl Citrate (Fentanyl Citrate) 50 mcg IV NOW STA Stop: 04/13/19 12:41 Last Admin: 04/13/19 13:24 Dose: 50 mcg Documented by: [id number] Levetiracetam 2,000 mg/ (Dextrose) 270 mls @ 999 mls/hr IV NOW STA Stop: 04/13/19 12:56 Last Infusion: 04/13/19 13:18 Dose: 0 mls/hr Documented by: [id number] Admin: 04/13/19 13:01 Dose: 999 mls/hr Documented by: [id number] Sodium Chloride (Nss) 500 mls @ 999 mls/hr IV .Q31M [facility] Stop: 04/13/19 13:15 Last Infusion: 04/13/19 13:55 Dose: 0 mls/hr Documented by: [id number] Admin: 04/13/19 13:24 Dose: 999 mls/hr Documented by: [id number] Lorazepam (Ativan) 0.5 mg in 1 mls @ 1 mls/min IV NOW STA Stop: 04/13/19 22:06 Last Admin: 04/14/19 00:02 Dose: Not Given Documented by: [id number] Ioversol (Optiray 320 100ml) 93 ml IV ONCE PRN PRN Reason: Interaction Checking Stop: 04/17/19 13:11 Last Admin: 04/13/19 13:12 Dose: 93 ml Documented by: [id number] Ketorolac Tromethamine (Toradol) 10 mg IV NOW ONE Stop: 04/13/19 14:46 Last Admin: 04/13/19 15:01 Dose: 10 mg Documented by: [id number] Ondansetron HCl (Zofran) 4 mg IV NOW STA Stop: 04/13/19 12:41 Last Admin: 04/13/19 13:24 Dose: 4 mg Documented by: [id number] Description This is a 21 electrode EEG with a single channel dedicated to limited EKG. The electrodes were placed in accordance with the International 10-20 system. This EEG was performed during wakefulness as a bedside recording is of good technical quality. Few or no muscle or movement artifact were recorded. Photic stimulation was performed. Drowsiness and light sleep are not recorded. Video analysis of patient movement and behavior is obtained In addition conditions there is evidence for normal-appearing background rhythm in the alpha range of up to 10 Hz and maximum frequency of up to 25 V maximum amplitude. This is maximum posterior head regions and is bilaterally symmetrical. Modest amplitude mid frequency central and symmetrical theta activity is seen beta activity seen bifrontally And no time is evidence for potentially epileptogenic activity for polyspike and spike-wave burst, focal sharp waves or focal spikes Photic stimulation provokes a modest driving response without a photoparoxysmal photo myogenic component Interpretation This is a normal EEG during wakefulness without evidence for focal or generalized encephalopathy without evidence for potentially epileptogenic activity Clinical Correlation This EEG is normal, does not reveal evidence for focal or generalized abnormalities and reveals no evidence for ongoing or potential epileptogenic activity but the absence of the latter unfortunately does not exclude the diagnosis of seizure disorder and clinical correlation is required Justin Sales MD
[2019-04-14] MEDS: ACETAMINOPHEN 325 MG TAB PO PRN (13:08)
--- NOTE | 2019-04-14 13:55 | Neurology Consultation ---
Date of Consultation April 14, 2019 Assessment & Plan (1) Seizure: 1. Keppra 1000 mg BID ongoing for a number of years without seizure 2. increase keppa to 1250 mg BID 3. Keppra level in 2 weeks as outpatient 4. seizure precautions- no heights, no bathing or swimming alone- he is no driv ing is not an issue at this point 5. lower bunk in correction (2) Peripheral neuropathy: 1. gabepentin 900 mg BID- it may help to administer 600 mg 600 mg 600 mg to have a more constant level 2. may need cymbalta or lyrica if gabepentin no longer is helping 3. will need to watch renal function GFR 30-60 max 1800 4. check ammonia level 5. questions use of perphenazine as it is not recommended in liver disease 6. may need a walker issued as he is having more ambulatory issues from the peripheral neuropathy - avoid stairs (3) Ambulatory dysfunction: 1. PT/OT to assess and make recommendations Supervising Physician Co-Signing Physician Notes I have seen and discussed above patient with Dr Justin Sales, neurology I have seen briefly examined this man and discussed his case with Allyn Hendricks PA-C and his current attending physician. The history is a bit vague and he may well have had a seizure or 2 but there are few or no clinical manifestations, the EEG is normal, and I think it [place] in this setting to simply increase his Keppra from 1000 twice a day to 1250 mg twice a day and continue to observe him. 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 but also has hepatitis C and HIV and both of these along with the treatment for them could be contributing factors He claims to be weaker now that he has had these 2 seizure-like events but on exam he really does not have that much loss of strength and does have a moderately severe loss of small and large fiber modalities below the knees Keller spinal imaging using CT technology has shown no significant fractures or dislocations and he really does not have anything to suggest a myelopathy At this point all we are suggesting is is his Neurontin dose be spread out a bit to 600 mg 3 times a day from 900 mg twice a day in hopes that this will give him more consistent serum levels and better control of his neuropathic pain and will also serve to add to his anticonvulsant regimen We are recommending that he be discharged today unless there are medical issues to prevent it. I do not think he needs to be followed up neurologically unless the correction medical staff would feel we need to do so in which case we would be happy to work him into our schedule Justin Sales MD History of Present Illness Reason for Consultation: seizure Requesting Physician: Checo Lino MD Attending Physician: Checo Lino MD History of Present Illness Td is a 58 year old incarcerated male with PMH HIV, Seizure disorder peripheral neuropathy, Hep C, hyperglycemia who presents to the ED for evaluation of seizure. He had a seizure throughout the night because he woke up with a laceration over his left eyebrow and there was some blood on the bed rail. He was then walking up the stairs when he started to feel lightheaded and his "tongue began to twist". The next thing he knew he was falling backwards and had another seizure and bit his tongue. He has been compliant with all medications. He has been on gabapentin for years but his neuropathy is getting worse. He is up today working with PT and walking in the gardner with a walker which he states he does not have at the correction. He has had HIV since age 19 and seizures as a child in [place]. denies CP, bowel or bladder issues, vision changes, swallowing issues, one sided weakness, numbness tingling. Allergies Allergy/AdvReac Type Severity Reaction Status Date / Time No Known Allergies Allergy Unverified 04/13/19 13:20 Home Medications Home Medications Medication Instructions Recorded Confirmed Type lrpyabms-mlbflccpejpz-knrzkig 1 tab PO QAM 04/13/19 04/13/19 History [Triumeq] gabapentin 900 mg PO BID 04/13/19 04/13/19 History lactulose 20 g PO QID PRN 04/13/19 04/13/19 History levetiracetam 1,000 mg PO BID 04/13/19 04/13/19 History perphenazine 8 mg PO BID 04/13/19 04/13/19 History sertraline 50 mg PO QAM 04/13/19 04/13/19 History Patient History Medical History (Updated 04/13/19 @ 18:06 by CARLOS EDUARDO Bettencourt) Esophageal thickening Hepatitis C HIV (human immunodeficiency virus infection) Peripheral neuropathy Pulmonary nodule Surgical History S/P cholecystectomy Family History Mother Diabetes Sister Seizure Other No significant family history Social History Preferred Language: Upper Sorbian Communication Ability: Effective Beliefs That Will Affect Care: None Current Living Situation: Other Current Living Situation Comment: [facility] 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 Other Information That Helps Us Care for You: No Feels Safe at Home: Yes Smoking Status: Former smoker Hx Alcohol Use: No Hx Substance Use: Yes substance use type: crack/cocaine and heroin Last Used Substance Other:: ~ 2011 Physical Exam Physical Exam: Physical Exam: Constitutional: appearance nourished, healthy and normal Ears, Nose, Mouth and Throat: mucous membranes moist, no injection and skin normal, eyes normal Cardiovascular: normal S-1 and S-2 and regular rate and rhythm Respiratory: course breath sounds with wheezing Musculoskeletal: no peripheral edema and decreased distal pulses Skin: no stigmata of neurocutaneous disease noted and normal and intact Eyes: extraocular muscles intact (EOMI) and pupils equal, round and reactive to light (PERRL) NEUROLOGIC EXAMINATION: Mental status: Alert and interactive Oriented to full date and location Oriented to person Speech fluent with no evidence of aphasia Cranial Nerves smile eye brow raise Reflexes: Deep tendon reflexes were symmetrical and decreased bilaterally Sensory: decreased to light touch, vibration, to mid mai, GT proprioception absent Coordination: finger to nose no bi pass Gait/Stance: Posture normal. Gait normal: tandem gait sensory walking with walker. Motor: Negative for pronator drift of out stretched arms with eyes closed. Strength: biceps triceps hand straw boss bilaterally 5/5, hip flex patellar, plantar flex ext 5/5 Results & Data Vital Signs (Past 12 Hours) Vital Signs Temp Pulse Pulse Resp BP Pulse Ox 04/14/19 11:41 36.4 C L 77 16 130/67 95 04/14/19 08:00 69 04/14/19 07:31 36.5 C 77 19 128/79 97 04/14/19 06:19 36.5 C 63 20 131/71 98 04/14/19 04:16 36.5 C 65 19 122/79 95 Laboratory Results Abnormal lab results 04/13/19 04/13/19 04/13/19 Range/Units 14:08 17:53 18:01 MPV (7.4-10.4) fL Glucose (70-99) mg/dl POC Glucose 192 H (70-99) Hemoglobin A1c 8.9 H (4.5-5.6) % Urine Glucose (UA) 2+ H (Negative) 04/13/19 04/14/19 04/14/19 Range/Units 20:23 05:52 05:52 MPV 11.5 H (7.4-10.4) fL Glucose 170 H (70-99) mg/dl POC Glucose 211 H (70-99) Hemoglobin A1c (4.5-5.6) % Urine Glucose (UA) (Negative) 04/14/19 04/14/19 Range/Units 07:31 11:39 MPV (7.4-10.4) fL Glucose (70-99) mg/dl POC Glucose 168 H 165 H (70-99) Hemoglobin A1c (4.5-5.6) % Urine Glucose (UA) (Negative) Diagnostic Findings abdomen/pelvis CT - No acute traumatic process within the abdomen or pelvis. Moderately distended bladder. c spine CT- No acute cervical spine fracture or subluxation. Chest CT- No acute traumatic process within the chest. A 9 mm right apical nodular density containing punctate calcification. This favors scarring. However, [address] follow-up is recommended to ensure stability. Mild thickening of the distal esophagus. Follow-up nonemergent endoscopy can be used for further evaluation. CT head-No acute intracranial abnormality. CT L spine-No acute fracture or subluxation. CT T spine-no fractures within the thoracic spine. Moderate generalized degenerative disc change. MRI brain No acute process for age.
--- NOTE | 2019-04-14 14:25 | Hospitalist Progress Note ---
Date of Service April 14, 2019 Assessment & Plan (1) Seizure: -Admit to telemetry -Patient presenting to ED from [facility] for evaluation of seizure -History of seizure disorder, currently managed on Keppra -In the ED, head CT negative for acute findings -Received Keppra 2 g IV load -Seizure precautions -neuro consult, case discussed with Allyn Piña PA-C; will obtain brain MRI, EEG, continue home dose of Keppra for now -Remains stable in the telemetry unit for seizures --EEG has been done and the results are pending (2) Hyperglycemia: -Glucose noted to be 265 on labs -Possibly stress response secondary to seizure -Check Hgb A1c-8.9 -Recheck BSG and provide NovoLog if needed -We will have diabetic diet -Metformin on discharge (3) Peripheral neuropathy: Secondary to longstanding diabetes (4) Ambulatory dysfunction: -Patient reports worsening of peripheral neuropathy since seizure today causing him the inability to bear weight on both legs -CT imaging of C-spine, thoracic spine, lumbar spine all negative for acute findings -Continue home dose of gabapentin -PT/OT (5) HIV (human immunodeficiency virus infection): (6) Hepatitis C: -HIV medication Triumeq requested to be sent from [facility] -Patient declines treatment for hepatitis C -Labs obtained from [facility] from 03/27/2019 show CD4 count 928, viral load <40, HCV RNA 9 million (7) DVT prophylaxis: -SCDs Subjective 04/14 The patient was seen and examined in telemetry unit He has significant past medical history of HIV , hepatitis C and diabetes with peripheral neuropathy He was admitted with the possible seizures with a history of seizure disorder He has been feeling a lot better this morning and complains to have weakness and numbness involving the legs Review of Systems Review of Systems: All systems reviewed and are unremarkable except as noted below Neurologic: Numbness involving lower extremities Physical Exam Physical Exam: Lying in bed without any acute symptoms Constitutional: well developed and well nourished; no acute distress and not ill appearing Eyes: PERRL, conjunctivae normal, anicteric sclerae ENMT: external ear and nose normal, oropharynx normal Neck: trachea midline, no thyromegaly Respiratory: normal respiratory effort Auscultation: lungs clear to auscultation bilaterally Cardiovascular: Rate/Rhythm: regular rate and regular rhythm Heart Sounds: no murmur Vessels: normal peripheral pulses Extremities: no edema Gastrointestinal (Abdomen): Inspection/Auscultation: abdomen normal to inspection and normal bowel sounds Musculoskeletal: Extremities: no cyanosis and no clubbing No acute arthritis in any joints Skin: no rashes, warm and dry Trauma: + abrasion (Small abrasion noted over left superior orbital bone) Neurologic: PERRL, EOMI, accommodation nl, no face palsy, no dysarthria moves all extremities and awake; no focal motor deficits Motor/Sensory: no pronator drift Alert, awake and oriented x3 Psychiatric: A+Ox3, euthymic affect Lymphatic: no cervical or axillary lymphadenopathy Results & Data Vital Signs (Past 12 Hours) Vital Signs Temp Pulse Pulse Resp BP Pulse Ox 04/14/19 11:41 36.4 C L 77 16 130/67 95 04/14/19 08:00 69 04/14/19 07:31 36.5 C 77 19 128/79 97 04/14/19 06:19 36.5 C 63 20 131/71 98 04/14/19 04:16 36.5 C 65 19 122/79 95 Laboratory Results Short CBC 04/14/19 Range/Units 05:52 WBC 6.02 (4.8-10.8) K/uL Hgb 15.2 (14.0-18.0) g/dL Hct 42.9 (42-52) % Plt Count 148 (130-400) K/uL [facility] 04/14/19 05:52 Sodium 136 Potassium 3.8 Chloride 106 Carbon Dioxide 24 BUN 14 Creatinine 1.13 Glucose 170 H Calcium 8.9 Urine 04/13/19 Range/Units 14:08 Urine Color Yellow Urine Appearance Clear (Clear) Urine pH 7.5 (4.5-7.5) Ur Specific [place] 1.027 (1.000-1.030) Urine Protein Negative (Negative) Urine Glucose (UA) 2+ H (Negative) Medications Administered Current Inpatient Medications Acetaminophen (Tylenol) 650 mg PO Q4H PRN PRN Reason: Pain or Fever Stop: 05/13/19 17:36 Last Admin: 04/14/19 13:08 Dose: 650 mg Documented by: Dextrose (Dextrose 50%) 25 - 50 ml IV UD PRN; Protocol PRN Reason: Hypoglycemia Protocol Stop: 05/13/19 18:05 Gabapentin (Neurontin) 900 mg PO BID [facility] Stop: 05/13/19 20:59 Last Admin: 04/14/19 08:27 Dose: 900 mg Documented by: Gadobutrol (Gadavist 65ml) 8 ml IV ONCE PRN PRN Reason: Interaction Checking Stop: 04/17/19 23:04 Last Admin: 04/13/19 23:05 Dose: 8 ml Documented by: Glucagon (Glucagen) 1 mg SQ UD PRN; Protocol PRN Reason: Hypoglycemia Protocol Stop: 05/13/19 18:05 Glucose (Dex4 Glucose) 4 - 8 tabs PO UD PRN; Protocol PRN Reason: Hypoglycemia Protocol Stop: 05/13/19 18:05 Glucose (Glucose 40%) 15 - 30 gm PO UD PRN; Protocol PRN Reason: Hypoglycemia Protocol Stop: 05/13/19 18:05 Lorazepam (Ativan) 1 mg in 2 mls @ 2 mls/min IV Q4H PRN PRN Reason: seizure Stop: 05/13/19 17:36 Last Admin: 04/13/19 22:15 Dose: 2 mls/min Documented by: Insulin Aspart (Novolog Flexpen) 0 units SC ACHS [facility] Stop: 05/13/19 20:59 Last Admin: 04/14/19 12:25 Dose: 3 units Documented by: Levetiracetam (Keppra) 1,000 mg PO BID [facility] Stop: 05/13/19 20:59 Last Admin: 04/14/19 08:27 Dose: 1,000 mg Documented by: Miscellaneous (Carbohydrates For Hypoglycemia) 15 - 30 gm PO UD PRN PRN Reason: Hypoglycemia Protocol Stop: 05/13/19 18:05 [facility]q: Non- Formulary [facility] Stop: 05/14/19 08:59 Last Admin: 04/14/19 09:14 Dose: 1 ea Documented by: Perphenazine (Trilafon) 8 mg PO BID [facility] Stop: 05/13/19 20:59 Last Admin: 04/14/19 08:27 Dose: 8 mg Documented by: Sertraline HCl (Zoloft) 50 mg PO QAM [facility] Stop: 05/14/19 08:59 Last Admin: 04/14/19 08:27 Dose: 50 mg Documented by:
[2019-04-14] MEDS ORDERED: TRAMADOL HCL 50 MG TABLET PO STA (14:50)
[2019-04-14] MEDS: GABAPENTIN 600 MG TAB PO SCH (21:04)
[2019-04-15] MEDS: ACETAMINOPHEN 325 MG TAB PO PRN (04:05)
[2019-04-15 06:25] LABS: Basophils # (auto) 0.01 K/uL (0-0.2); Basophils % (auto) 0.1 %; Eosinophils # (auto) 0.13 K/uL (0-0.5); Eosinophils % (auto) 1.7 %; Hematocrit (blood only) 41.1 % (42-52); Hemoglobin 14.9 g/dL (14.0-18.0); Immature Granulocytes # (auto) 0.02 K/uL (0.00-0.02); Immature Granulocytes % (auto) 0.3 %; Lymphocytes # (auto) 2.72 K/uL (1.2-3.4); Lymphocytes % (auto) 34.8 %; Mean Corpuscular Hemoglobin 31.9 pg (25-34); Mean Corpuscular Hgb Conc 36.3 g/dL (32-36); Mean Platelet Volume 11.5 fL (7.4-10.4); Monocytes # (auto) 0.76 K/uL (0.11-0.59); Monocytes % (auto) 9.7 %; Neutrophils # (auto) 4.17 K/uL (1.4-6.5); Neutrophils % (auto) 53.4 %; Platelet Count 152 K/uL (130-400); RDW Coefficient of Variation 12.2 % (11.5-14.5); Red Blood Count 4.67 M/uL (4.7-6.1); White Blood Count 7.81 K/uL (4.8-10.8)
[2019-04-15 06:58] LABS: BUN Creatinine Ratio 12.8 (10-20); Calcium 8.8 mg/dl (8.5-10.1); Creatinine Clr Calc Pharmacy 66.8 ml/min; Est GFR (African American) 89.6; Est GFR (Non-African American) 77.3; Potassium 3.7 mmol/L (3.5-5.1)
[2019-04-15 06:59] LABS: Phosphorus 2.4 mg/dl (2.5-4.9)
[2019-04-15] MEDS: INSULIN ASPART 100 UNITS/ML 3 ML PEN SC SCH ×2 (09:16→11:57)
[2019-04-15] MEDS: GABAPENTIN 600 MG TAB PO SCH (09:18)
[2019-04-15] MEDS: levETIRAcetam 500 MG TAB PO SCH (09:19)
[2019-04-15] MEDS: PERPHENAZINE 2 MG TABLET PO SCH (09:19)
[2019-04-15] MEDS: TRIUMEQ PO SCH (09:20)
[2019-04-15] MEDS: SERTRALINE HCL 50 MG TABLET PO SCH (09:20)
[2019-04-15] MEDS ORDERED: levETIRAcetam 250 MG TAB PO ONE (11:56)
--- NOTE | 2019-04-15 12:10 | Hospitalist Progress Note ---
Date of Service April 15, 2019 Assessment & Plan (1) Seizure: -Patient presenting to ED from [facility] for evaluation of seizure -History of seizure disorder, currently managed on Keppra 1000mg BID -In the ED, head CT negative for acute findings - MRI Brain:IMPRESSION: No acute process for age. - EEG: This EEG is normal, does not reveal evidence for focal or generalized abnormalities and reveals no evidence for ongoing or potential epileptogenic activity but the absence of the latter unfortunately does not exclude the diagnosis of seizure disorder and clinical correlation is required -Received Keppra 2 g IV load Neurologist consulted, Dr. Sales: recommend to increase Keppra to 1250mg BID, then repeat level in 2 weeks no recurrence of seizure while admitted - per Neuro: seizure precautions- no heights, no bathing or swimming alone- he is no d riving is not an issue at this point lower bunk in fpc (2) Hyperglycemia: -Glucose noted to be 265 on labs A1c 8.9 - Metformin 500mg BID DM diet - monitor A1c and titrate Metformin as outpatient (3) Peripheral neuropathy: Secondary to longstanding diabetes recommend to change Gabapentin to 600mg TID to achieve more constant levels monitor renal function and dose Gabapentin accordingly may need cymbalta or lyrica if gabapentin no longer is helping - PT/OT recommends PT/OT 2-3x/week, use walker with ambulation (4) Ambulatory dysfunction: per admitting service notes: -Patient reports worsening of peripheral neuropathy since seizure today causing him the inability to bear weight on both legs -CT imaging of C-spine, thoracic spine, lumbar spine all negative for acute findings -Continue home dose of gabapentin - management as noted above (5) Abnormal finding on CT scan: Lung nodule: Discussed with the manager enterprise content management Will need to have a 3-month repeat CAT scan to evaluate as an outpatient Lesion in esophagus: The patient was evaluated by v block saw operator per GI: Will arrange OP EGD in 4 weeks here at [facility]. Our office will call [facility] to arrange. Consider daily Miralax for constipation (6) HIV (human immunodeficiency virus infection): continue usual medication ff up as outpatient (7) Hepatitis C: -Patient declines treatment for hepatitis C -Labs obtained from [facility] from 03/27/2019 show CD4 count 928, viral load <40, HCV RNA 9 million - per Neuro, questions use of perphenazine as it is not recommended in liver disease; please re-evaluate as outpatient [facility] Subjective ff up for breakthrough seizure seen resting in bed, comfortable just had lunch not in distress states he feels better overall no recurrence of breakthrough seizure has mild headache, leg discomfort- chronic as per patient no dizziness, nausea, problems with vision, no other focal neuro symptoms no chest pain, palpitations, dizziness no other symptoms agreeable for discharge today Review of Systems Review of Systems: All systems reviewed & are unremarkable except as noted in HPI & below Physical Exam Physical Exam: General- oriented x 3, not in distress, speaks in sentences with no effort or accessory muscle use Eyes- anicteric Neck- no JVD Lungs- clear breath sounds bilaterally, no rales/wheezes Heart- normal rate, regular rhythm; no murmurs Abdomen- normal bowel sounds, nondistended, soft, nontender Extremities- no pretibial edema, no calf tenderness Neuro- alert, oriented x 3; no gross focal neurologic deficits Skin- warm & dry Results & Data Vital Signs (Past 12 Hours) Vital Signs Temp Pulse Resp BP Pulse Ox 04/15/19 11:49 36.7 C 92 H 17 130/68 98 04/15/19 06:57 36.4 C L 68 13 147/65 H 94 04/15/19 02:43 36.8 C 79 16 130/76 97 Laboratory Results Laboratory Results - last 24 hr 04/14/19 04/14/19 04/14/19 15:12 16:29 20:42 WBC RBC Hgb Hct MCV MCH MCHC RDW Std Deviation RDW Coeff of Malachi Plt Count MPV Immature Gran % (Auto) Neut % (Auto) Lymph % (Auto) Stark % (Auto) Eos % (Auto) Baso % (Auto) Immature Gran # (Auto) Neut # (Auto) Lymph # (Auto) Stark # (Auto) Eos # (Auto) Baso # (Auto) Sodium Potassium Chloride Carbon Dioxide Anion Gap BUN Creatinine Est Cr Clr Drug Dosing Est GFR ( Amer) Est GFR (Non-Af Amer) BUN/Creatinine Ratio Glucose POC Glucose 191 H 155 H Calcium Phosphorus Magnesium Ammonia 26.0 Gabapentin Levetiracetam 04/14/19 04/15/19 04/15/19 23:20 05:54 05:54 WBC 7.81 RBC 4.67 L Hgb 14.9 Hct 41.1 L MCV 88.0 MCH 31.9 MCHC 36.3 H RDW Std Deviation 39.0 RDW Coeff of Malachi 12.2 Plt Count 152 MPV 11.5 H Immature Gran % (Auto) 0.3 Neut % (Auto) 53.4 Lymph % (Auto) 34.8 Stark % (Auto) 9.7 Eos % (Auto) 1.7 Baso % (Auto) 0.1 Immature Gran # (Auto) 0.02 Neut # (Auto) 4.17 Lymph # (Auto) 2.72 Stark # (Auto) 0.76 H Eos # (Auto) 0.13 Baso # (Auto) 0.01 Sodium 138 Potassium 3.7 Chloride 106 Carbon Dioxide 24 Anion Gap 8.0 BUN 13 Creatinine 1.05 Est Cr Clr Drug Dosing 66.8 Est GFR ( Amer) 89.6 Est GFR (Non-Af Amer) 77.3 BUN/Creatinine Ratio 12.8 Glucose 171 H POC Glucose Calcium 8.8 Phosphorus 2.4 L Magnesium 2.0 Ammonia Gabapentin Pending Levetiracetam Pending 04/15/19 04/15/19 06:54 11:12 WBC RBC Hgb Hct MCV MCH MCHC RDW Std Deviation RDW Coeff of Malachi Plt Count MPV Immature Gran % (Auto) Neut % (Auto) Lymph % (Auto) Stark % (Auto) Eos % (Auto) Baso % (Auto) Immature Gran # (Auto) Neut # (Auto) Lymph # (Auto) Stark # (Auto) Eos # (Auto) Baso # (Auto) Sodium Potassium Chloride Carbon Dioxide Anion Gap BUN Creatinine Est Cr Clr Drug Dosing Est GFR ( Amer) Est GFR (Non-Af Amer) BUN/Creatinine Ratio Glucose POC Glucose 192 H 206 H Calcium Phosphorus Magnesium Ammonia Gabapentin Levetiracetam
--- NOTE | 2019-04-15 12:32 | Discharge Summary ---
Date of Service April 15, 2019 Admission HPI Per Admitting Provider 58 year old male who presents to the ED for evaluation of seizure. Patient with history of HIV and seizure disorder. Patient reports he thinks he had a seizure throughout the night because he woke up with a laceration over his left eyebrow and there was some blood on the bed rail. Today, patient reports he was walking up the stairs when he started to feel lightheaded and his "tongue began to twist". The next thing he knew he was falling backwards and had an apparent seizure per reports. Patient reports he did bite his tongue. No loss of bowel or bladder function. Reports he otherwise has been feeling well recently. Says he has been compliant with all medications. No recent illnesses, fever, or chills. Denies chest cary and shortness of breath. No abdominal pain, nausea, vomiting, or diarrhea. Denies urinary symptoms. Patient has history of peripheral neuropathy typically managed with gabapentin. In the ED, head CT is negative for acute findings. Cervical spine, chest, ABD/pelvis, thoracic, lumbar CTs are all negative for acute findings. Labs are unremarkable. Patient is hemodynamically stable. Patient reports that since his seizure today, the neuropathy in his feet has severely worsened and he is unable to bear weight. Patient was given IV fentanyl, IV ketorolac, IV Keppra, IV Zofran, IVF. Admission Exam Per Admitting Provider Constitutional: WD/WN, vitals as above Eyes: PERRL, conjunctivae normal, anicteric sclerae ENMT: external ear and nose normal, oropharynx normal Respiratory: normal respiratory effort, lungs clear to auscultation Cardiovascular: Rate/Rhythm: regular rate and regular rhythm Vessels: normal peripheral pulses Extremities: no edema Gastrointestinal (Abdomen): normal bowel sounds, soft, nontender, no hepatosplenomegaly Musculoskeletal: Extremities: no cyanosis and no clubbing Strength 4/5 throughout Skin: no rashes, warm and dry Trauma: + abrasion (Small abrasion noted over left superior orbital bone) Neurologic: PERRL, EOMI, accommodation nl, no face palsy, no dysarthria moves all extremities and awake; no focal motor deficits Motor/Sensory: no pronator drift Psychiatric: A+Ox3, euthymic affect Principal Diagnosis BREAKTHROUGH SEIZURE Discharge Exam General- oriented x 3, not in distress, speaks in sentences with no effort or accessory muscle use Eyes- anicteric Neck- no JVD Lungs- clear breath sounds bilaterally, no rales/wheezes Heart- normal rate, regular rhythm; no murmurs Abdomen- normal bowel sounds, nondistended, soft, nontender Extremities- no pretibial edema, no calf tenderness Neuro- alert, oriented x 3; no gross focal neurologic deficits Skin- warm & dry Discharge Data Allergies Allergy/AdvReac Type Severity Reaction Status Date / Time No Known Allergies Allergy Unverified 04/13/19 13:20 Consultations 04/13/19 15:41 ED Decision to Admit Stat 04/13/19 17:37 Consult Gastroenterology Routine Consult Neurology Routine Ordered Studies 04/13/19 12:40 CT abd pelvis IV con only Stat ABDOMEN AND PELVIS CT WITH IV CONTRAST CT DOSE: HISTORY: fall TECHNIQUE: Multiaxial CT images of the abdomen and pelvis were performed following the use of intravenous contrast. A dose lowering technique was utilized adhering to the principles of ALARA. COMPARISON STUDY: None. FINDINGS: No pneumoperitoneum. No pneumatosis. No acute fractures within the visualized osseous structures. Cholecystectomy. The liver, spleen, adrenal glands, pancreas, and kidneys are unremarkable. No hydronephrosis. No retroperitoneal lymphadenopathy. There is a left retroaortic renal vein. The bladder is moderately distended. No pelvic free fluid. No bowel wall thickening or obstruction. Normal appendix. IMPRESSION: 1. No acute traumatic process within the abdomen or pelvis. 2. Moderately distended bladder. CT cervical spine wo con Stat CT chest w con Stat CHEST CT WITH CONTRAST CT DOSE: HISTORY: fall TECHNIQUE: Multiaxial CT images of the chest were performed following the int ravenous administration of contrast. A dose lowering technique was utilized adhering to the principles of ALARA. COMPARISON: None. FINDINGS: There is a 9 mm right apical nodular density containing a punctate calcification. This favors scarring. Otherwise, lungs are clear. The central airways are patent. No pleural effusions. No pneumothorax. No fractures within the visualized osseous structures of the chest. Please refer to the same day abdomen and pelvis CT for further evaluation of the abdominal structures. Bilateral gynecomastia, left greater than right. No mediastinal or hilar lymphadenopathy. Mild thickening of the distal esophagus. Normal caliber thoracic aorta with no evidence for dissection. The heart is borderline enlarged. The main pulmonary arteries are patent. No mediastinal hematoma. IMPRESSION: 1. No acute traumatic process within the chest. 2. A 9 mm right apical nodular density containing punctate calcification. This favors scarring. However, [address] follow-up is recommended to ensure stability. 3. Mild thickening of the distal esophagus. Follow-up nonemergent endoscopy can be used for further evaluation. ACT 112: Positive. There are findings on this exam that require communication between the performing entity and the patient following Patient Test Result Information Act ([place] Act 112) guidelines. CT head/brain wo con Stat CT lumbar spine wo con Stat CT thoracic spine wo con Stat 04/13/19 17:37 MR brain seizure wo/w con Routine MR brain seizure wo/w con CLINICAL HISTORY: seizure mental status change COMPARISON STUDY: No previous studies for comparison. TECHNIQUE: Utilizing a 1.5 Yasemin magnet and dedicated coil, multiplanar, multiecho imaging of the brain was performed pre and postcontrast administrati on. IV administration of 8 mL of Gadavist contrast was uneventful. Thin cut coronal T2 imaging was performed according to seizure protocol. FINDINGS: Diffusion images show no evidence for an acute ischemic process. Several small foci of increased signal within the periventricular deep white matter regions probably secondary to age-related chronic small vessel change. Mild component of cerebral atrophy. The ventricular system is midline. Sella and parasellar regions are unremarkable. IMPRESSION: No acute process for age. ACT 112: Negative or not required by law. Hospital Course (1) Seizure: -Patient presenting to ED from [facility] for evaluation of seizure -History of seizure disorder, currently managed on Keppra 1000mg BID -In the ED, head CT negative for acute findings - MRI Brain:IMPRESSION: No acute process for age. - EEG: This EEG is normal, does not reveal evidence for focal or generalized abnormalities and reveals no evidence for ongoing or potential epileptogenic activity but the absence of the latter unfortunately does not exclude the diagnosis of seizure disorder and clinical correlation is required -Received Keppra 2 g IV load Neurologist consulted, Dr. Sales: recommend to increase Keppra to 1250mg BID, then repeat level in 2 weeks no recurrence of seizure while admitted - per Neuro: seizure precautions- no heights, no bathing or swimming alone- he is no driving is not an issue at this point lower bunk in jail (2) Hyperglycemia: DM type 2 -Glucose noted to be 265 on labs - patient reports taking Metformin in the past A1c 8.9 - start Metformin 500mg BID DM diet - monitor A1c and titrate Metformin as outpatient (3) Peripheral neuropathy: Secondary to longstanding diabetes recommend to change Gabapentin to 600mg TID to achieve more constant levels monitor renal function and dose Gabapentin accordingly may need cymbalta or lyrica if gabapentin no longer is helping - PT/OT recommends PT/OT 2-3x/week, use walker with ambulation (4) Ambulatory dysfunction: per admitting service notes: -Patient reports worsening of peripheral neuropathy since seizure today causing him the inability to bear weight on both legs -CT imaging of C-spine, thoracic spine, lumbar spine all negative for acute findings -Continue home dose of gabapentin - management as noted above (5) Abnormal finding on CT scan: (full report in the Procedures section above) Lung nodule: Discussed with the proof technician Will need to have a 3-month repeat CAT scan to evaluate as an outpatient Lesion in esophagus: The patient was evaluated by career and transition teacher per GI: Will arrange OP EGD in 4 weeks here at [facility]. [facility]. Consider daily Miralax for constipation (6) HIV (human immunodeficiency virus infection): continue usual medication ff up as outpatient (7) Hepatitis C: -Patient declines treatment for hepatitis C -Labs obtained from [facility] from 03/27/2019 show CD4 count 928, viral load <40, HCV RNA 9 million - per Neuro, questions use of perphenazine as it is not recommended in liver disease; please re-evaluate as outpatient [facility] Total Time Total Time Spent Total Time Spent (In Minutes): 45 minutes Discharge Plan Discharge Items [facility] Reason For Visit: SEIZURE Discharge Diagnosis: BREAKTHROUGH SEIZURE Activity: As commented below Activity Comment: PT/OT 2-3X/WEEK, ALWAYS USE A WALKER, FALL PRECAUTIONS Driving/Machine Use: NO DRIVING Non-emergency contact: Primary Care Provider Call non-emergency contact if: you have any medication questions, your symptoms worsen, your pain is not controlled, your pain is worsening, your pain is unusual for you, your pain is concerning for you and you have a fever Follow-up/Referrals: Olga BERMAN [Primary Care Provider] - Diet: Carb Consistent or DM2 and Heart Healthy Addtl Attending Provider Instructions: SEIZURE PRECAUTIONS, LOWER BUNK PLEASE REFER TO ACCOMPANYING HOSPITAL DISCHARGE SUMMARY FOR FULL DETAILS. Pending Studies at Discharge: Yes Studies:: REPEAT PHOSPHORUS LEVEL IN 3 DAYS, KEPPRA LEVEL IN 2 WEEKS, REFERRAL FOR PT/OT 2-3X PER WEEK, CT CHEST IN 3 MONTHS TO FOLLOW UP LUNG NODULE, EGD IN 4 WEEKS [facility]/O [facility] RENT[facility] CAR FERRY DRIVER TO FOLLOW UP ESOPHAGEAL THICKENING (please refer to accompanying hospital discharge summary for full details) Stand-Alone Forms: My [employer], Smoking Cessation Skilled Items Patient informed of condition?: Yes Discharge Level of Care: Other Communicable Disease: No Discharge Prognosis: Stable Lines: None Urinary Catheter: No Medications and DC Order Prescriptions: New gabapentin 600 mg Tablet 600 mg PO TID Qty: 90 RF: 1 levetiracetam [Keppra] 250 mg Tablet 1,250 mg PO BID 30 Days Qty: 300 RF: 1 metformin 500 mg tablet 500 mg PO BID 30 Days Qty: 60 RF: 1 Phospha 250 Neutral 250 mg Tablet 2 tab PO QID 3 Days Qty: 24 RF: 0 Continued perphenazine 8 mg Tablet 8 mg PO BID RF: 0 sertraline 50 mg Tablet 50 mg PO QAM RF: 0 lactulose 10 gram/15 mL (15 mL) Solution 20 g PO QID PRN (Reason: .) RF: 0 Triumeq 600-50-300 mg Tablet 1 tab PO QAM RF: 0 Discontinued gabapentin 300 mg Capsule 900 mg PO BID RF: 0 levetiracetam 1,000 mg Tablet 1,000 mg PO BID RF: 0 Discharge Orders: Discharge Order (Routine); Ordered 04/15/19 Ordered By: Jerad Anderson Admission Data Admit Date/Time: 04/13/19 16:17 Attending Provider: Jerad Anderson Admit Provider: Justin Vides Primary Care Provider: Olga BERMAN Other Providers: Justin Vides ; Jaspal Drew ; Justin Sales ; Checo Lino
[2019-04-15] MEDS ORDERED: POT PHOSPHATE MONOBASIC W/ SOD TAB PO SCH (13:00)
[2019-04-15] MEDS ORDERED: levETIRAcetam 250 MG TAB PO SCH (21:00)
[2019-04-19 10:35] LABS: Gabapentin 5.4 mcg/mL; Levetiracetam Keppra 34.4 mcg/mL (12.0-46.0)
== END 2019-04-15 16:00 | DRG 101 ==
LOC: ED 12:30 → SUATTDRO 16:17 → 2E 16:17

== ENCOUNTER 2023-07-22 16:42 | Inpatient (IN) ==
[2023-07-22 17:59] LABS: Basophils # (auto) 0.04 K/uL (0.00-0.20); Basophils % (auto) 0.4 %; Eosinophils # (auto) 0.09 K/uL (0.00-0.50); Eosinophils % (auto) 0.9 %; Hematocrit (blood only) 33.3 % (42.0-52.0); Hemoglobin 11.5 g/dl (14.0-18.0); Immature Granulocytes % (auto) 0.9 %; Lymphocytes # (auto) 1.16 K/uL (1.20-3.40); Mean Corpuscular Hemoglobin 30.3 pg (25.0-34.0); Mean Corpuscular Hgb Conc 34.5 g/dL (32.0-36.0); Mean Corpuscular Volume 87.9 fL (80.0-100.0); Mean Platelet Volume 11.6 fL (9.4-12.4); Monocytes # (auto) 1.16 K/uL (0.11-0.59); Neutrophils # (auto) 8.01 K/uL (1.40-6.50); Neutrophils % (auto) 75.8 %; Platelet Count 250 K/uL (130-400); RDW Coefficient of Variation 12.4 % (11.5-14.5); RDW Standard Deviation 39.7 fL (36.4-46.3); Red Blood Count 3.79 M/uL (4.70-6.10); White Blood Count 10.56 K/ul (4.8-10.8)
[2023-07-22 18:11] LABS: Albumin Globulin Ratio 0.8 (0.9-2); Albumin Level 3.5 gm/dl (3.4-5.0); BUN Creatinine Ratio 19.4 (10-20); Bilirubin,Total 0.5 mg/dl (0.2-1.0); Calcium 8.9 mg/dl (8.6-10.3); Est GFR (African American) 94.7 ml/min; Est GFR (Non-African American) 81.7 ml/min; Globulin 4.3 gm/dl (2.5-4.0); Magnesium 1.3 mg/dl (1.7-2.4); Potassium 4.8 mmol/L (3.5-5.1); Total Protein 7.8 gm/dl (6.0-8.3)
[2023-07-22 18:17] LABS: Troponin I High Sensitivity 11.8 pg/ml (0-20)
[2023-07-22 18:23] LABS: INR 1.1 (0.9-1.1); Partial Thromboplastin Ratio 1.1; Partial Thromboplastin Time 31 Seconds (21-31); Prothrombin Time 12.1 Seconds (9.0-12.0)
--- NOTE | 2023-07-22 18:26 | Emergency Department Note ---
Impression & Plan Cellulitis, Failure of outpatient treatment, Hypomagnesemia, Anemia ED Provider Note NAME: SUSAN [id number] JITENDRA AGE: 62 SEX: M : 1960 ARRIVES VIA: Ambulance INFORMANT: [Patient] ED PROVIDER(S): [Favio Hand MD] CHIEF COMPLAINT: Infection HISTORY OF PRESENT ILLNESS: The patient is a 62-year-old male [facility] He has been dealing with a wound on the right first toe for months. He has seen the wound center, he has been on oral antibiotics and recently, switched to IV vancomycin. Despite the IV vancomycin, the wound is worsening and he now has a fever. He was sent for evaluation. The patient states that he felt short of breath earlier, not now. He denies cough or congestion or stuffy nose. He does not have any vomiting or diarrhea, no urinary complaints, no abdominal pain. PMHx/PSHx/Social Hx: See Below PHYSICAL EXAM: GENERAL: Patient is in no acute distress. HEENT: No acute trauma, normocephalic atraumatic, mucous membranes moist, no nasal congestion. NECK: No stridor, no adenopathy, no meningismus, trachea is midline. LUNGS: Clear to auscultation bilaterally, no wheeze, no rhonchi, breath sounds equal. HEART: Without murmurs gallops or rubs, regular rate and rhythm. ABDOMEN: Soft, nontender, no peritonitis. EXTREMITIES: No cyanosis. The patient has a black appearing lesion to the right first toe primarily on the lateral aspect. No drainage, the wound is dry. There has been loss of skin. There is some ascending erythema and warmth present. NEUROLOGIC: Oriented x 3, no acute motor or sensory deficits, no focal weakness. SKIN: No jaundice, no diaphoresis. DIFFERENTIAL DIAGNOSIS: Sepsis or bacteremia, osteomyelitis, failed outpatient management, dehydration, electrolyte imbalance, among others. EMERGENCY DEPARTMENT PROCEDURES: MEDICAL DECISION MAKING: The patient presents with worsening right foot cellulitis. There is black discoloration to the right first toe. There is erythema to the foot. He has been dealing with this foot wound for months now and things keep getting worse despite oral and now IV antibiotics. There is no leukocytosis. The patient was found to be anemic with a hemoglobin of 11.5. There was a normal platelet count. No concerning coagulopathy. No renal failure. Lactic acid level was not elevated making sepsis less likely. Magnesium was low at 1.3. No concerning liver enzyme elevation. ECG showed a sinus rhythm, no ischemia. Cardiac enzyme testing x 1 was not consistent with acute cardiac injury. COVID screen was negative. Chest x-ray did not show pneumonia or CHF. Right foot CT did not show osteomyelitis or abscess. On exam, the patient had an necrotic appearing right toe wound as well as erythema to the dorsum of the right foot. The patient has failed outpatient management for this foot infection. I do believe he requires a hospital stay. He received IV saline, 1 L. He received IV magnesium for the lower magnesium value. He was given IV daptomycin and IV cefepime. Patient is need of a hospital stay, IV antibiotic therapy and surgical/orthopedic consult. He may need operating room intervention on this toe/foot. I did speak with the patient and case management, the on-call hospitalist was consulted. Prior/Outside records/notes reviewed: Wound care center note from 07/01/2023 discussing his wound, the treatment provided and the plan moving forward. ECG per my interpretation: Indication was possible sepsis. The ECG shows a normal sinus rhythm with a rate of 94. There is no acute ST elevation, no PVCs. The QTc is 402. Continuous Cardiac Monitoring per my interpretation: An order was placed for continuous cardiac monitoring. The monitor shows a rate of 92 with normal sinus rhythm. Imaging/x-ray results per my interpretation: Chest x-ray shows some right lower lung atelectasis, no pneumonia or CHF. Chronic Medical/Social conditions affecting care: Currently incarcerated Care/Management discussed with: Case management, the on-call hospitalist. Level of care consideration(s): After review of the information above and other included data: --I believe the patient requires escalation of care to admission Critical Care Note: I have personally spent 41 minutes of critical care time in the direct management of this patient. This includes bedside care, interpretation of diagnostic studies, and testing, discussion with consultants, patient, and family members, and other required patient management activities. This 41 minutes is in excess of all separately billable procedures. DISPOSITION: Admission Past Med/Surg History Medical History Mass of soft tissue of neck Esophageal thickening Pulmonary nodule Hepatitis C Peripheral neuropathy HIV (human immunodeficiency virus infection) Surgical History S/P cholecystectomy Family History Mother Diabetes Sister Seizure Other No significant family history Social History Smoking Status: Current every day smoker Tobacco Type: Cigars and E-cigarettes / Vaping Hx Alcohol Use: No Hx Substance Use: Yes Last Used Substance Other:: ~ 2011 Preferred Language: Belarusian Communication Ability: Effective Seat Trimmer Required: Yes Beliefs That Will Affect Care: None Current Living Situation: Other Current Living Situation Comment: [facility] 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 04/13/19 07/22/23 oral solution sertraline 50 mg tablet 150 mg PO QAM 04/13/19 07/22/23 dolutegravir 50 mg-lamivudine 300 1 tab PO DAILY 05/10/22 07/22/23 mg tablet (Dovato) insulin glargine 100 unit/mL 10 unit subcut DAILY 05/10/22 07/22/23 subcutaneous cartridge insulin regular human 100 unit/mL 1 sliding scale dose subcut 05/10/22 07/22/23 injection solution (Novolin R USEASDIRECTD Regular U-100 Insulin) rosuvastatin 5 mg tablet 5 mg PO DAILY 05/10/22 07/22/23 vancomycin 1 gram/200 mL in 0.9 % 1 g IV Q12H 07/01/23 07/22/23 sod. chloride intravenous piggyback gabapentin 600 mg tablet 1,800 mg PO TID 07/22/23 07/22/23 levetiracetam 1,000 mg tablet 1,000 mg PO BID 07/22/23 07/22/23 (Keppra) levetiracetam 500 mg tablet 500 mg PO BID 07/22/23 07/22/23 lisinopril 2.5 mg tablet 2.5 mg PO DAILY 07/22/23 07/22/23 metformin 850 mg tablet 850 mg PO BID 07/22/23 07/22/23 olanzapine 15 mg tablet 15 mg PO HS 07/22/23 07/22/23 Results & Data (ED) Vital Signs Vital Signs - 24 hr 07/22/23 16:40 07/22/23 16:51 07/22/23 16:54 Temperature 37.5 C Temperature Source Oral Pulse Rate 96 H 95 H Pulse Rate [Apical] 93 H Pulse Rate from SpO2 Sensor Pulse Rhythm Pulse Rhythm [Apical] Regular Pulse Strength [Apical] Normal Respiratory Rate 22 21 Respiratory Effort / Characteristics Non-Labored Spontaneous Non-Labored Spontaneous Respiratory Depth Normal Normal Respiratory Pattern Regular Regular Blood Pressure 126/70 Blood Pressure [Left Arm] 126/70 Blood Pressure Mean 88 Blood Pressure Mean [Left Arm] 88 Pulse Oximetry 92 92 Oxygen Delivery Method Room Air Room Air Sepsis Recent Fever Within 48 Hours Yes Sepsis New/Unexplained Change in Mental Status No Sepsis Action Taken by Nursing No Action Required 07/22/23 17:42 07/22/23 17:42 07/22/23 18:12 Temperature Temperature Source Pulse Rate 94 H 94 H Pulse Rate [Apical] Pulse Rate from SpO2 Sensor 94 H Pulse Rhythm Regular Pulse Rhythm [Apical] Pulse Strength [Apical] Respiratory Rate 20 19 Respiratory Effort / Characteristics Respiratory Depth Respiratory Pattern Blood Pressure Blood Pressure [Left Arm] Blood Pressure Mean Blood Pressure Mean [Left Arm] Pulse Oximetry 93 93 93 Oxygen Delivery Method Room Air Room Air Sepsis Recent Fever Within 48 Hours Sepsis New/Unexplained Change in Mental Status Sepsis Action Taken by Nursing 07/22/23 18:15 07/22/23 18:20 07/22/23 18:30 Temperature Temperature Source Pulse Rate 91 H 89 89 Pulse Rate [Apical] Pulse Rate from SpO2 Sensor 91 H 90 90 Pulse Rhythm Pulse Rhythm [Apical] Pulse Strength [Apical] Respiratory Rate 21 20 22 Respiratory Effort / Characteristics Respiratory Depth Respiratory Pattern Blood Pressure Blood Pressure [Left Arm] Blood Pressure Mean Blood Pressure Mean [Left Arm] Pulse Oximetry 93 94 93 Oxygen Delivery Method Sepsis Recent Fever Within 48 Hours Sepsis New/Unexplained Change in Mental Status Sepsis Action Taken by Nursing 07/22/23 18:31 07/22/23 18:31 07/22/23 18:40 Temperature Temperature Source Pulse Rate 90 89 Pulse Rate [Apical] Pulse Rate from SpO2 Sensor 91 H 89 Pulse Rhythm Pulse Rhythm [Apical] Pulse Strength [Apical] Respiratory Rate 22 17 Respiratory Effort / Characteristics Respiratory Depth Respiratory Pattern Blood Pressure Blood Pressure [Left Arm] Blood Pressure Mean 113 Blood Pressure Mean [Left Arm] Pulse Oximetry 93 92 Oxygen Delivery Method Sepsis Recent Fever Within 48 Hours Sepsis New/Unexplained Change in Mental Status Sepsis Action Taken by Nursing 07/22/23 18:48 07/22/23 18:49 07/22/23 18:49 Temperature Temperature Source Pulse Rate 90 Pulse Rate [Apical] 92 H Pulse Rate from SpO2 Sensor 91 H Pulse Rhythm Pulse Rhythm [Apical] Pulse Strength [Apical] Normal Respiratory Rate 20 19 Respiratory Effort / Characteristics Non-Labored Spontaneous Respiratory Depth Normal Respiratory Pattern Regular Blood Pressure 119/72 Blood Pressure [Left Arm] 119/72 Blood Pressure Mean 97 Blood Pressure Mean [Left Arm] 87 Pulse Oximetry 90 90 Oxygen Delivery Method Room Air Sepsis Recent Fever Within 48 Hours Sepsis New/Unexplained Change in Mental Status Sepsis Action Taken by Nursing 07/22/23 18:50 07/22/23 19:00 07/22/23 19:00 Temperature Temperature Source Pulse Rate 91 H 90 Pulse Rate [Apical] Pulse Rate from SpO2 Sensor 91 H 90 Pulse Rhythm Pulse Rhythm [Apical] Pulse Strength [Apical] Respiratory Rate 23 21 Respiratory Effort / Characteristics Respiratory Depth Respiratory Pattern Blood Pressure 142/73 H Blood Pressure [Left Arm] Blood Pressure Mean 90 Blood Pressure Mean [Left Arm] Pulse Oximetry 91 92 Oxygen Delivery Method Sepsis Recent Fever Within 48 Hours Sepsis New/Unexplained Change in Mental Status Sepsis Action Taken by Retirement Medications Current Medication List: was personally reviewed by me Laboratory Data Attestation: I reviewed the patient's lab results. 07/22/23 17:05 07/22/23 17:05 Lab Results 07/22/23 07/22/23 07/22/23 Range/Units 17:05 17:20 18:50 WBC 10.56 (4.8-10.8) K/ul RBC 3.79 L (4.70-6.10) M/uL Hgb 11.5 L (14.0-18.0) g/dl Hct 33.3 L (42.0-52.0) % MCV 87.9 (80.0-100.0) fL MCH 30.3 (25.0-34.0) pg MCHC 34.5 (32.0-36.0) g/dL RDW Std Deviation 39.7 (36.4-46.3) fL RDW Coeff of Malachi 12.4 (11.5-14.5) % Plt Count 250 (130-400) K/uL MPV 11.6 (9.4-12.4) fL Immature Gran % (Auto) 0.9 % Neut % (Auto) 75.8 % Lymph % (Auto) 11.0 % [place] % (Auto) 11.0 % Eos % (Auto) 0.9 % Baso % (Auto) 0.4 % Neut # (Auto) 8.01 H (1.40-6.50) K/uL Lymph # (Auto) 1.16 L (1.20-3.40) K/uL [place] # (Auto) 1.16 H (0.11-0.59) K/uL Eos # (Auto) 0.09 (0.00-0.50) K/uL Baso # (Auto) 0.04 (0.00-0.20) K/uL Immature Gran # (Auto) 0.10 (0.01-0.20) K/uL PT 12.1 H (9.0-12.0) Seconds INR 1.1 (0.9-1.1) APTT 31 (21-31) Seconds PTT Ratio 1.1 Sodium 134 L (136-145) mmol/L Potassium 4.8 (3.5-5.1) mmol/L Chloride 102 (98-107) mmol/L Carbon Dioxide 25 (21-32) mmol/L Anion Gap 7 (3-11) BUN 19 (6-23) mg/dl Creatinine 0.98 (0.6-1.4) mg/dl Est Cr Clr Drug Dosing 76.0 ml/min Est GFR ( Amer) 94.7 ml/min Est GFR (Non-Af Amer) 81.7 ml/min BUN/Creatinine Ratio 19.4 (10-20) Glucose 183 H (70-99(Fasting)) mg/dl Lactate 1.7 (0.4-2.0) mmol/L Calcium 8.9 (8.6-10.3) mg/dl Magnesium 1.3 L (1.7-2.4) mg/dl Total Bilirubin 0.5 (0.2-1.0) mg/dl AST 21 (13-39) U/L ALT 9 (7-52) U/L Alkaline Phosphatase 122 H (34-104) U/L Troponin I High Sens 11.8 (0-20) pg/ml Total Protein 7.8 (6.0-8.3) gm/dl Albumin 3.5 (3.4-5.0) gm/dl Globulin 4.3 H (2.5-4.0) gm/dl Albumin/Globulin Ratio 0.8 L (0.9-2) Procalcitonin 0.12 (0-0.5) ng/ml SARS-CoV-2, RNA, NAAT Cancelled Administered Medications Acetaminophen (Acetaminophen 500 Mg Tab) 500 mg PO Q4H PRN PRN Reason: Pain Stop: 08/21/23 21:07 Last Admin: 07/22/23 21:23 Dose: 500 mg Documented By: PATO Gabapentin (Gabapentin 600 Mg Tab) 1,200 mg PO TID [facility] Stop: 08/21/23 20:59 Last Admin: 07/22/23 21:23 Dose: 1,200 mg Documented By: PATO Sodium Chloride (Nss) 1,000 mls @ 100 mls/hr IV .Q10H [facility] Stop: 07/23/23 15:14 Last Admin: 07/22/23 21:30 Dose: 100 mls/hr Documented By: PATO Cefepime HCl 2,000 mg/ Syringe 20 mls @ 5 mls/min IV Q8H [facility]; Protocol Stop: 07/30/23 01:59 Last Admin: 07/23/23 01:46 Dose: 5 mls/min Documented By: KIMANI Insulin Aspart (Insulin Aspart Per Unit Charge) 0 units SC ACHS [facility] Stop: 08/21/23 20:59 Last Admin: 07/22/23 20:44 Dose: Not Given Documented By: PATO Co-signed By: HARLAN Levetiracetam (Levetiracetam 500 Mg Tab) 1,500 mg PO BID [facility] Stop: 08/21/23 20:59 Last Admin: 07/22/23 21:24 Dose: 1,500 mg Documented By: PATO Olanzapine (Olanzapine 5 Mg Tablet) 15 mg PO HS [facility] Stop: 08/21/23 20:59 Last Admin: 07/22/23 21:24 Dose: 15 mg Documented By: PATO Oxycodone HCl (Oxycodone Hcl Ir 5 Mg Tab (Immediate Release)) 2.5 mg PO Q6H PRN PRN Reason: Pain Stop: 08/05/23 21:07 Last Admin: 07/22/23 21:33 Dose: 2.5 mg Documented By: PATO Discontinued Medications Acetaminophen (Acetaminophen 500 Mg Tab) Confirm Administered Dose 500 mg .ROUTE .STK-MED ONE Stop: 07/22/23 21:23 Last Admin: 07/22/23 21:24 Dose: Not Given Documented By: PATO Sodium Chloride (Nss) 1,000 mls @ 999 mls/hr IV .Q1H1M ONE Stop: 07/22/23 19:19 Last Infusion: 07/22/23 19:33 Dose: Infused Documented By: Admin: 07/22/23 18:29 Dose: 999 mls/hr Documented By: NABOR Cefepime HCl (Maxipime) 2,000 mg in 20 mls @ 5 mls/min IV NOW STA; Protocol Stop: 07/22/23 18:22 Last Admin: 07/22/23 18:29 Dose: 5 mls/min Documented By: NABOR Daptomycin 425 mg/ Syringe 8.5 mls @ 4.25 mls/min IV Q24H [facility]; Protocol Stop: 07/29/23 18:29 Last Admin: 07/22/23 19:24 Dose: 4.25 mls/min Documented By: PATO Magnesium Sulfate/Dextrose (Magnesium Sulfate / D5w) 1 gm in 100 mls @ 100 mls/hr IV Q1H [facility] Stop: 07/22/23 20:21 Last Infusion: 07/22/23 21:03 Dose: Infused Documented By: Admin: 07/22/23 19:29 Dose: 100 mls/hr Documented By: Infusion: 07/22/23 19:24 Dose: Infused Documented By: Admin: 07/22/23 18:29 Dose: 100 mls/hr Documented By: NABOR Daptomycin 425 mg/ Syringe 8.5 mls @ 4.25 mls/min IV NOW STA; Protocol Stop: 07/22/23 19:06 Last Admin: 07/22/23 19:35 Dose: Not Given Documented By: PATO Insulin Glargine (Lantus Per Unit Charge) 10 units SQ ONE ONE Stop: 07/22/23 21:01 Last Admin: 07/22/23 20:45 Dose: Not Given Documented By: PATO Ioversol (Optiray 320 100ml) 92 ml IV ONCE ONE Stop: 07/22/23 20:17 Last Admin: 07/22/23 20:20 Dose: 92 ml Documented By: NIMESH Oxycodone HCl (Oxycodone Hcl Ir 5 Mg Tab (Immediate Release)) Confirm Administered Dose 5 mg .ROUTE .STK-MED ONE Stop: 07/22/23 21:33 Last Admin: 07/22/23 21:36 Dose: Not Given Documented By: PATO Imaging Data Radiologist's Impression: Chest X-Ray 07/22/23 17:40 XR chest 1V not portable HISTORY: 62 years-old Male Sepsis acute sepsis COMPARISON: Chest CT from outside facility on 2023 TECHNIQUE: AP view of the chest FINDINGS: Cardiac silhouette is enlarged. Mild right hemidiaphragmatic elevation with linear right basilar opacities. No pneumothorax, pleural effusion or overt pulmonary edema. The previously noted nodular density in the right lung apex is not definitively seen by radiography. IMPRESSION: 1. Cardiomegaly without acute process. 2. Right hemidiaphragmatic elevation with linear right basilar atelectasis versus scarring. ACT 112: Negative or not required by law. The above report was generated using voice recognition software. It may contain grammatical, syntax or spelling errors. Electronically signed by: John Galarza M.D. 07/22/2023 6:[address] 07/22/23 18:19 Exam(s): CT RIGHT FOOT With Contrast IV Amt: 93ML OPTIRAY 320 EXAM: CT Right Lower Extremity With Intravenous Contrast, Foot CLINICAL HISTORY: Reason for exam: poss osteomyelitis. TECHNIQUE: Axial computed tomography images of the right foot with intravenous contrast. CTDI is 25.12 mGy and DLP is 582.84 mGy-cm. Automated exposure control was utilized for the study. A dose lowering technique was utilized adhering to the principles of ALARA. CONTRAST: Patient received 93ML OPTIRAY 320 of IV contrast COMPARISON: No relevant prior studies available. FINDINGS: Chronic ulceration of the great toe, correlate with physical exam. No fluid collection or abscess. No periostitis or focal osteopenia to indicate osteomyelitis at this time. If there is continued concern for osteomyelitis, MRI is recommended to fully exclude. No metatarsal fracture. No Lisfranc malalignment. Intact base of the fifth metatarsal. Moderate callus formation plantar to the first and the fifth metatarsal heads. IMPRESSION: Chronic ulceration of the great toe, correlate with physical exam. No fluid collection or abscess. No periostitis or focal osteopenia to indicate osteomyelitis at this time. If there is continued concern for osteomyelitis, MRI is recommended to fully exclude. Electronically signed by: Lenard Vega MD 07/22/23 22:09 PM Discharge Plan Visit Data Chief Complaint: Infection, Wound Stated Complaint: TOE INFECTION ED Provider: Favio Hand Discharge Problem: Cellulitis, Failure of outpatient treatment, Hypomagnesemia, Anemia Patient Disposition: Admitted As Inpatient Condition: Fair Discharge Instructions Interventions: ED Discharge Assessment Last Done: 07/22/23 22:44 Discharge Problem: Cellulitis Qualifiers: Site of cellulitis: extremity Site of cellulitis of extremity: lower extremity Laterality: right Qualified Code(s): L03.115 - Cellulitis of right lower limb Anemia Qualifiers: Anemia type: unspecified type Qualified Code(s): D64.9 - Anemia, unspecified
[2023-07-22] MEDS: SODIUM CHLORIDE 0.9% 1,000 ML IV ONE (18:29)
[2023-07-22] MEDS: MAGNESIUM SULFATE / D5W 1 GM/100 ML BAG IV SCH (18:29)
[2023-07-22] MEDS: CEFEPIME 2,000 MG/20 ML VIAL IV STA (18:29)
--- NOTE | 2023-07-22 18:34 | XRay Report ---
XR chest 1V not portable HISTORY: 62 years-old Male Sepsis acute sepsis COMPARISON: Chest CT from outside facility on 2023 TECHNIQUE: AP view of the chest FINDINGS: Cardiac silhouette is enlarged. Mild right hemidiaphragmatic elevation with linear right basilar opac ities. No pneumothorax, pleural effusion or overt pulmonary edema. The previously noted nodular densi ty in the right lung apex is not definitively seen by radiography. IMPRESSION: 1. Cardiomegaly without acute process. 2. Right hemidiaphragmatic elevation with linear right basilar atelectasis versus scarring. ACT 112: Negative or not required by law. The above report was generated using voice recognition software. It may contain grammatical, syntax o r spelling errors. Electronically signed by: John Galarza M.D. 07/22/2023 6:32 PM
[2023-07-22] MEDS: DAPTOmycin 425 MG in SYRINGE 0 ML IV SCH (19:24)
[2023-07-22] MEDS: DAPTOmycin 425 MG in SYRINGE 0 ML IV STA (19:35)
[2023-07-22] MEDS ORDERED: DEXTROSE 50% 50 ML SYRINGE IV PRN (19:37)
[2023-07-22] MEDS ORDERED: GLUCAGON FOR INJ 1 MG VIAL SQ PRN (19:37)
[2023-07-22] MEDS ORDERED: GLUCOSE 40% GEL 15 GM TUBE PO PRN (19:37)
[2023-07-22] MEDS ORDERED: PHARMACY GLYCEMIC MGMT CONSULT PRN (19:37)
[2023-07-22] MEDS ORDERED: GLUCOSE 10 TAB/TUBE PO PRN (19:37)
--- NOTE | 2023-07-22 19:42 | History & Physical Report ---
Date of Service July 22, 2023 Assessment & Plan (1) Diabetic ulcer of right great toe: (2) HIV (human immunodeficiency virus infection): (3) Hepatitis C: (4) Tobacco abuse: (5) Seizure disorder: Plan 62-year-old male with history of HIV, hep C, diabetes, seizure disorder sent from [facility] for fever chills on background of right toe infection Diabetic right toe infection-being treated at [facility] but developed fever and chills and send today ED. Labs with normal WBC, Pro-Isidoro and lactate. Will check ESR and CRP. Follow-up on CT foot ordered by ED to look for osteomyelitis. Continue empiric Zosyn/daptomycin started in the ED. Unclear who is podiatry concrete form setter and finisher- morning team to follow up on that, if not can ask orthopedic evaluation if deemed necessary. Follow-up culture results and CT finding. HIV-continue home meds Seizure disorder-on Keppra Diabetes type 2 with peripheral neuropathy-continue insulin, adjust as indicated. Continue gabapentin. Hypomagnesemia-repleted, recheck in am Mood disorder- on zofoft, zyprexa DVT prophylaxis-subcu Lovenox Disposition-admit to [facility] Full code Time spent-approximately 80 minutes History of Present Illness Chief Complaint: Toe infection Primary Care Provider: CULLEN Fisher 62-year-old male from [facility] who was sent to the ED today for infection in the right great toe. He states it has been there for 5 months and never completely healed. He does not have any sensation in the great toe. He has been treated with antibiotics and getting wound care at the [facility] however patient developed fever, chills, shaking and increased pain and sent to the ED. Patient was being followed by wound care at the correctional facility. Workup in ED shows normal WBC, negative Pro-Isidoro and lactate, magnesium 1.3 otherwise unremarkable labs. Chest x-ray with no acute finding. Patient started on Dapto and cefepime and hospitalist was consulted for further management. He feels fine currently. He does smoke ecigarette. No chest pain, SOB, N/V or other issues. Allergies Allergy/AdvReac Type Severity Reaction Status Date / Time No Known Allergies Allergy Unverified 07/01/23 07:55 Home Medications Medication Instructions Recorded Confirmed Type lactulose 10 gram/15 mL (15 mL) 20 g PO QID PRN . 04/13/19 07/22/23 History oral solution sertraline 50 mg tablet 150 mg PO QAM 04/13/19 07/22/23 History dolutegravir 50 mg-lamivudine 300 1 tab PO DAILY 05/10/22 07/22/23 History mg tablet (Dovato) insulin glargine 100 unit/mL 10 unit subcut DAILY 05/10/22 07/22/23 History subcutaneous cartridge insulin regular human 100 unit/mL 1 sliding scale dose subcut 05/10/22 07/22/23 History injection solution (Novolin R USEASDIRECTD Regular U-100 Insulin) rosuvastatin 5 mg tablet 5 mg PO DAILY 05/10/22 07/22/23 History vancomycin 1 gram/200 mL in 0.9 % 1 g IV Q12H 07/01/23 07/22/23 History sod. chloride intravenous piggyback gabapentin 600 mg tablet 1,800 mg PO TID 07/22/23 07/22/23 History levetiracetam 1,000 mg tablet 1,000 mg PO BID 07/22/23 07/22/23 History (Keppra) levetiracetam 500 mg tablet 500 mg PO BID 07/22/23 07/22/23 History lisinopril 2.5 mg tablet 2.5 mg PO DAILY 07/22/23 07/22/23 History metformin 850 mg tablet 850 mg PO BID 07/22/23 07/22/23 History olanzapine 15 mg tablet 15 mg PO HS 07/22/23 07/22/23 History Past Med/Surg History Medical History Mass of soft tissue of neck Esophageal thickening Pulmonary nodule Hepatitis C Peripheral neuropathy HIV (human immunodeficiency virus infection) Surgical History S/P cholecystectomy Family History Mother Diabetes Sister Seizure Other No significant family history Social History Smoking Status: Former smoker Hx Alcohol Use: No Hx Substance Use: Yes Last Used Substance Other:: ~ 2011 Preferred Language: [place] Communication Ability: Effective Beliefs That Will Affect Care: None Current Living Situation: Other Current Living Situation Comment: CULLEN FISHER 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 Feels Safe at Home: Yes Assistive Devices: None Review of Systems Review of Systems: All systems reviewed & are unremarkable except as noted in Subjective Physical Exam Physical Exam: General: Lying comfortably in bed, not in distress, on room air HEENT: EOMI, ALEXIS, MMM Chest: Clear breath sounds bilaterally, no wheezes or crackles CVS: Regular rate and rhythm, normal heart sounds, no murmur Abdomen: Soft, non tender, not distended, normal bowel sounds Neuro: Awake, alert, oriented, conversing well, non focal Extremities: Infection of right great toe noted on medial side with no purulence or active discharge Results & Data Results & Data Vital Signs (Past 12 Hours) Vital Signs Temp Pulse Pulse Resp BP BP Pulse Ox 07/22/23 18:48 92 H 20 119/72 90 07/22/23 17:42 94 H 20 93 07/22/23 17:42 93 07/22/23 16:54 93 H 21 126/70 92 07/22/23 16:51 37.5 C 95 H 22 126/70 92 07/22/23 16:40 96 H O2 Del Method 07/22/23 18:48 Room Air 07/22/23 17:42 Room Air 07/22/23 17:42 Room Air 07/22/23 16:54 Room Air 07/22/23 16:51 Room Air 07/22/23 16:40 Laboratory Results Short CBC 07/22/23 Range/Units 17:05 WBC 10.56 (4.8-10.8) K/ul Hgb 11.5 L (14.0-18.0) g/dl Hct 33.3 L (42.0-52.0) % Plt Count 250 (130-400) K/uL BMP 07/22/23 17:05 Sodium 134 L Potassium 4.8 Chloride 102 Carbon Dioxide 25 BUN 19 Creatinine 0.98 Glucose 183 H Calcium 8.9 Liver Function 07/22/23 Range/Units 17:05 Total Bilirubin 0.5 (0.2-1.0) mg/dl AST 21 (13-39) U/L ALT 9 (7-52) U/L Alkaline Phosphatase 122 H (34-104) U/L Albumin 3.5 (3.4-5.0) gm/dl Diagnostic Findings Chest X-Ray 07/22/23 17:40 XR chest 1V not portable HISTORY: 62 years-old Male Sepsis acute sepsis COMPARISON: Chest CT from outside facility on 2023 TECHNIQUE: AP view of the chest FINDINGS: Cardiac silhouette is enlarged. Mild right hemidiaphragmatic elevation with linear right basilar opacities. No pneumothorax, pleural effusion or overt pulmonary edema. The previously noted nodular density in the right lung apex is not definitively seen by radiography. IMPRESSION: 1. Cardiomegaly without acute process. 2. Right hemidiaphragmatic elevation with linear right basilar atelectasis versus scarring. ACT 112: Negative or not required by law. The above report was generated using voice recognition software. It may contain grammatical, syntax or spelling errors. Electronically signed by: John Galarza M.D. 07/22/2023 6:32 PM Code Status & VTE Plan VTE Prophylaxis Plan VTE Prophylaxis will be ordered: Yes
[2023-07-22] MEDS: OPTIRAY 320 100ml IV ONE (20:20)
[2023-07-22] MEDS: INSULIN ASPART PER UNIT CHARGE SC SCH (20:44)
[2023-07-22] MEDS: LANTUS PER UNIT CHARGE SQ ONE (20:45)
[2023-07-22] MEDS ORDERED: levETIRAcetam 500 MG TAB PO SCH (21:00)
[2023-07-22] MEDS ORDERED: LANTUS PER UNIT CHARGE SQ ONE (21:00)
[2023-07-22] MEDS: ACETAMINOPHEN 500 MG TAB PO PRN (21:23)
[2023-07-22] MEDS: GABAPENTIN 600 MG TAB PO SCH (21:23)
[2023-07-22] MEDS: ACETAMINOPHEN 500 MG TAB ONE (21:24)
[2023-07-22] MEDS: OLANZapine 5 MG TABLET PO SCH (21:24)
[2023-07-22] MEDS: levETIRAcetam 500 MG TAB PO SCH (21:24)
[2023-07-22] MEDS: SODIUM CHLORIDE 0.9% 1,000 ML IV SCH (21:30)
[2023-07-22] MEDS: oxyCODONE HCL IR 5 MG TAB (IMMEDIATE RELEASE) PO PRN (21:33)
[2023-07-22] MEDS: oxyCODONE HCL IR 5 MG TAB (IMMEDIATE RELEASE) ONE (21:36)
--- NOTE | 2023-07-22 22:10 | CT Scan Report ---
Exam(s): CT RIGHT FOOT With Contrast IV Amt: 93ML OPTIRAY 320 EXAM: CT Right Lower Extremity With Intravenous Contrast, Foot CLINICAL HISTORY: Reason for exam: poss osteomyelitis. TECHNIQUE: Axial computed tomography images of the right foot with intravenous contrast. CTDI is 25.12 mGy and DLP is 582.84 mGy-cm. Automated exposure control was utilized for the study. A dose lowering technique was utilized adhering to the principles of ALARA. CONTRAST: Patient received 93ML OPTIRAY 320 of IV contrast COMPARISON: No relevant prior studies available. FINDINGS: Chronic ulceration of the great toe, correlate with physical exam. No fluid collection or abscess. No periostitis or focal osteopenia to indicate osteomyelitis at this time. If there is continued concern for osteomyelitis, MRI is recommended to fully exclude. No metatarsal fracture. No Lisfranc malalignment. Intact base of the fifth metatarsal. Moderate callus formation plantar to the first and the fifth metatarsal heads. IMPRESSION: Chronic ulceration of the great toe, correlate with physical exam. No fluid collection or abscess. No periostitis or focal osteopenia to indicate osteomyelitis at this time. If there is continued concern for osteomyelitis, MRI is recommended to fully exclude. Electronically signed by: Lenard Vega MD 07/22/23 22:09 PM
[2023-07-23] MEDS: CEFEPIME 2,000 MG in SYRINGE 0 ML IV SCH (01:46)
[2023-07-23 06:13] LABS: Hematocrit (blood only) 33.1 % (42.0-52.0); Hemoglobin 11.1 g/dl (14.0-18.0); Mean Corpuscular Hemoglobin 30.2 pg (25.0-34.0); Mean Corpuscular Hgb Conc 33.5 g/dL (32.0-36.0); Mean Corpuscular Volume 89.9 fL (80.0-100.0); Mean Platelet Volume 11.7 fL (9.4-12.4); Platelet Count 231 K/uL (130-400); RDW Coefficient of Variation 12.4 % (11.5-14.5); RDW Standard Deviation 41.1 fL (36.4-46.3); Red Blood Count 3.68 M/uL (4.70-6.10)
[2023-07-23 06:13] LABS: Appearance Urine Cloudy (Clear); Bacteria Urine Automated None Seen (None Seen); Bilirubin Urine Negative (Negative); Blood Urine 1+ (Negative); Cast Urine Automated 0-2 /lpf (0-2); Color Urine Yellow; Epithelial Cell Urine Auto 0-2 /hpf (0-2); Glucose Urine UA Trace (Negative); Ketones Urine Negative (Negative); Leukocyte Esterase Urine 3+ (Negative); Nitrite Urine Positive (Negative); Protein Urine 1+ (Negative); RBC Urine Automated 0-2 /hpf (0-2); Specific Gravity Urine 1.026 (1.000-1.030); Urobilinogen Urine Negative (Negative); WBC Urine Automated >50 /hpf (0-5); pH Urine 5.5 (4.5-7.5)
[2023-07-23 06:25] LABS: Albumin Globulin Ratio 0.8 (0.9-2); Albumin Level 3.3 gm/dl (3.4-5.0); BUN Creatinine Ratio 17.5 (10-20); Bilirubin,Total 0.6 mg/dl (0.2-1.0); C Reactive Protein 19.72 mg/dl (0-0.5); Calcium 8.5 mg/dl (8.6-10.3); Creatinine Clr Calc Pharmacy 76.7 ml/min; Est GFR (African American) 95.9 ml/min; Est GFR (Non-African American) 82.7 ml/min; Globulin 4.1 gm/dl (2.5-4.0); Magnesium 1.9 mg/dl (1.7-2.4); Potassium 4.1 mmol/L (3.5-5.1); Total Protein 7.4 gm/dl (6.0-8.3)
[2023-07-23 07:10] LABS: Estimated Average Glucose 232 mg/dl; Hemoglobin A1C 9.7 % (4.5-5.6)
[2023-07-23] MEDS: LANTUS PER UNIT CHARGE SQ SCH ×2 (08:30→20:57)
[2023-07-23] MEDS: ENOXAPARIN INJ 40 MG/0.4 ML SYR SQ SCH (08:36)
[2023-07-23] MEDS: SERTRALINE HCL 50 MG TABLET PO SCH (08:36)
[2023-07-23] MEDS: lisinopril 2.5 MG TAB PO SCH (08:36)
--- NOTE | 2023-07-23 08:56 | Pharmacy Report ---
Pharmacy Glycemic Short Note 2 - Date of Service July 23, 2023 - Glycemic Short BSG Results (Last 24 hours): 07/22/23 07/22/23 07/23/23 17:05 20:25 05:18 Glucose 183 H 206 H POC Glucose 153 H 07/23/23 07:42 Glucose POC Glucose 190 H OUTPATIENT ANTIDIABETIC REGIMEN: * Insulin glargine 10 units SC daily * Metformin 850 mg PO BIDM HbA1c: 9.7% (07/23/23) ASSESSMENT: * J CARLOS is a 62 year old male presents to ED from local group home with fever and worsening diabetic foot infection of right great toe * Initial insulin orders last evening refused by patient * Blood sugars elevated this morning. Unsurprising, given HbA1c and insulin refusal last evening. * No changes to currently ordered regimen * Broad spectrum antibiotic regimen ordered in form of daptomycin and cefepime * Diet ordered at this time PLAN FOR INPATIENT GLYCEMIC CONTROL: * Hold outpatient oral diabetes medications * Basal insulin * Lantus 10 units SQ daily * Lantus 0-5-10 units SC HS * Bolus insulin * NovoLog per scale ACHS or Q6hrs while NPO * Goal Range: Low 110 mg/dL - High 140 mg/dL * Correction Factor: 20 mg/dL/unit * Nutritional / Prandial insulin per carb ratio of 1 unit per 7 grams CHO consumed
[2023-07-23] MEDS ORDERED: ROSUVASTATIN CALCIUM 5 MG TAB PO SCH (09:00)
[2023-07-23] MEDS: DOLUTEGRAVIR LAMIVUDINE PO SCH (10:57)
[2023-07-23] MEDS ORDERED: ALBUTEROL HFA 8 GM INHALER INH PRN (13:49)
[2023-07-23] MEDS: LEVALBUTEROL 1.25MG/0.5ML NEB NEB STA (14:05)
[2023-07-23] MEDS: IPRATROPIUM BROMIDE NEB SOLN 0.02% 0.5MG/2.5ML VIAL NEB STA (14:05)
--- NOTE | 2023-07-23 14:28 | Hospitalist Progress Note ---
Date of Service July 23, 2023 Assessment & Plan (1) Diabetic ulcer of right great toe: (2) HIV (human immunodeficiency virus infection): (3) Hepatitis C: (4) Tobacco abuse: (5) Seizure disorder: Plan Per admitting service Addendum: 62-year-old male with history of HIV, hep C, diabetes, seizure disorder sent from [facility] for fever chills on background of right toe infection Diabetic right toe infection-being treated at [facility] but developed fever and chills and send today ED. Labs with normal WBC, Pro-Isidroo and lactate. Will check ESR and CRP. Follow-up on CT foot ordered by ED to look for osteomyelitis. Continue empiric Zosyn/daptomycin started in the ED. Unclear who is podiatry site acquisition specialist- morning team to follow up on that, if not can ask orthopedic evaluation if deemed necessary. Follow-up culture results and CT finding. 07/22 IMPRESSION: Chronic ulceration of the great toe, correlate with physical exam. No fluid collection or abscess. No periostitis or focal osteopenia to indicate osteomyelitis at this time. If there is continued concern for osteomyelitis, MRI is recommended to fully exclude. Blood culture: Pending Will order foot MRI Continue daptomycin plus cefepime Podiatry consultation pending HIV-continue home meds Seizure disorder-on Keppra Diabetes type 2 with peripheral neuropathy-continue insulin, adjust as indicated. Continue gabapentin. History of asthma Patient reports he has a history of asthma and smoking Exacerbation As needed nebs, albuterol Hypomagnesemia-repleted, recheck in am Mood disorder- on zofoft, zyprexa DVT prophylaxis-subcu Lovenox Disposition-return to correctional facility when medically stable Full code Admission and Anticipated Discharge Date Admission Date: July 22, 2023 Subjective Follow-up for right great toe infection, chronic wound, etc. Seen resting in bed, comfortable, not distress States he is having some dyspnea, usually resolves with as needed albuterol No cough, fevers chills, chest pain, palpitations, dizziness Denies pain over the right great toe No other new symptoms Review of Systems Review of Systems: all noted and negative except for above Physical Exam Physical Exam: General- oriented x 3, not in distress, speaks in sentences with no effort or accessory muscle use Eyes- anicteric Neck- no JVD Lungs- clear breath sounds bilaterally, no rales/wheezes Heart- normal rate, regular rhythm; no murmurs Abdomen- normal bowel sounds, nondistended, soft, nontender Extremities- no pretibial edema, no calf tenderness Right great toe-positive moderate edema, discoloration medial aspect, gangrene? No active bleeding or discharge Neuro- alert, oriented x 3; no gross focal neurologic deficits Skin- warm & dry Results & Data Results & Data Vital Signs (Past 12 Hours) Vital Signs Temp Pulse Resp BP Pulse Ox O2 Del Method 07/23/23 14:06 91 H 18 92 Room Air 07/23/23 13:35 Room Air 07/23/23 07:41 36.9 C 78 16 154/78 H 95 Room Air all noted and reviewed including below
[2023-07-23] MEDS: hydrALAZINE HCL 20 MG/ML VIAL IV PRN (16:05)
[2023-07-23] MEDS: DAPTOmycin 300 MG in SYRINGE 0 ML IV SCH (17:23)
[2023-07-23 20:11] LABS: A calco-baum cmplx NotReported Not Detected (NotDetected); Bact fragilis Not Reported Not Detected (NotDetected); Blood Culture Id Panel See PCR Comment (NotDetected); C auris Not Reported Not Detected (NotDetected); CTX-M Resistant Gene Not Detected (NotDetected); Calbicans Not Reported Not Detected (NotDetected); Candida glabrata Not Reported Not Detected (NotDetected); Candida krusei Not Reported Not Detected (NotDetected); Cneoformans/gatti Not Reported Not Detected (NotDetected); Cparapsilosis Not Reported Not Detected (NotDetected); E cloacae compx Not Reported Not Detected (NotDetected); Efaecalis Not Reported Not Detected (NotDetected); Efaecium Not Reported Not Detected (NotDetected); Enterobacterales Not Reported DETECTED (NotDetected); Escherichia coli Not Reported Not Detected (NotDetected); H influenzae Not Reported Not Detected (NotDetected); IMP Resistant Gene Not Detected (NotDetected); K aerogenes Not Reported Not Detected (NotDetected); KPC Resistant Gene Not Detected (NotDetected); Koxytoca Not Reported Not Detected (NotDetected); Kpneumoniae grp Not Reported DETECTED (NotDetected); Lmonocyt Not Reported Not Detected (NotDetected); N meningitidis Not Reported Not Detected (NotDetected); NDM Resistant Gene Not Detected (NotDetected); OXA 48 Like Resistant Gene Not Detected (NotDetected); P aeruginosa Not Reported Not Detected (NotDetected); Proteus spp Not Reported Not Detected (NotDetected); Salmonella spp Not Reported Not Detected (NotDetected); Smarcescens Not Reported Not Detected (NotDetected); Staph lugdunensis Not Reported Not Detected (NotDetected); Staph spp. Not Reported Not Detected (NotDetected); Staphaureus Not Reported Not Detected (NotDetected); Staphepi Not Reported Not Detected (NotDetected); Stenmaltophilia Not Reported Not Detected (NotDetected); Strep agal(GrpB) Not Reported Not Detected (NotDetected); Strep pneum Not Reported Not Detected (NotDetected); Strep pyog (GrpA) Not Reported Not Detected (NotDetected); Strep spp Not Reported Not Detected (NotDetected); VIM Resistant Gene Not Detected (NotDetected); mcr-1 Colistin Resistant Gene Not Detected (NotDetected)
[2023-07-23 20:15] LABS: Enterobacterales DETECTED (NotDetected); Klebsiella pneumoniae group DETECTED (NotDetected)
[2023-07-24] MEDS: GADOBUTROL 65ML VIAL IV ONE (01:05)
--- NOTE | 2023-07-24 01:46 | Magnetic Resonance Report ---
Exam(s): MRI RIGHT FOOT W/WO Contrast IV Amt: 9cc gadavist EXAM: MR Right Lower Extremity Without and With Intravenous Contrast, Foot CLINICAL HISTORY: Reason for exam: r great toe infected chronic wound, r/o osteomyeli. TECHNIQUE: Multiplanar magnetic resonance images of the right foot without and with intravenous contrast. CONTRAST: Patient received 9cc gadavist of IV contrast COMPARISON: No relevant prior studies available. FINDINGS: Great toe ulceration/infection. No fluid collection or abscess. Positive for osteomyelitis of the great toe proximal and distal phalanx. No remaining areas of osteomyelitis. No metatarsal fracture. Dorsal subcutaneous edema of the midfoot. Atrophy and edema of the foot musculature, consistent with diabetes. IMPRESSION: Great toe ulceration/infection. No fluid collection or abscess. Positive for osteomyelitis of the great toe proximal and distal phalanx. Electronically signed by: Lenard Vega MD 07/24/23 01:46 AM
[2023-07-24 06:42] LABS: Basophils # (auto) 0.04 K/uL (0.00-0.20); Basophils % (auto) 0.3 %; Eosinophils # (auto) 0.12 K/uL (0.00-0.50); Hemoglobin 11.2 g/dl (14.0-18.0); Immature Granulocytes % (auto) 0.9 %; Lymphocytes # (auto) 2.33 K/uL (1.20-3.40); Lymphocytes % (auto) 20.1 %; Mean Corpuscular Hemoglobin 29.9 pg (25.0-34.0); Mean Corpuscular Hgb Conc 33.9 g/dL (32.0-36.0); Mean Corpuscular Volume 88.2 fL (80.0-100.0); Mean Platelet Volume 11.3 fL (9.4-12.4); Monocytes # (auto) 1.17 K/uL (0.11-0.59); Monocytes % (auto) 10.1 %; Neutrophils # (auto) 7.81 K/uL (1.40-6.50); Neutrophils % (auto) 67.6 %; Platelet Count 260 K/uL (130-400); RDW Coefficient of Variation 12.4 % (11.5-14.5); RDW Standard Deviation 40.2 fL (36.4-46.3); Red Blood Count 3.74 M/uL (4.70-6.10); White Blood Count 11.57 K/ul (4.8-10.8)
[2023-07-24 07:14] LABS: BUN Creatinine Ratio 12.6 (10-20); Calcium 8.7 mg/dl (8.6-10.3); Creatinine Clr Calc Pharmacy 78.1 ml/min; Est GFR (African American) 98.3 ml/min; Est GFR (Non-African American) 84.9 ml/min; Potassium 4.1 mmol/L (3.5-5.1)
--- NOTE | 2023-07-24 09:00 | Podiatry Consultation ---
Date of Consultation July 24, 2023 Assessment & Plan (1) Diabetic ulcer of right great toe: Arterial studies ordered today pending result patient will likely benefit from toe amputation. Trying to establish what day this can be done. During the time of my visit patient felt well again temperature is within normal limits white count still elevated positive blood culture noted when obtained on 21 July. Patient should continue dressings per wound care recommendations continue elevation. Discussed with patient he will likely benefit from toe amputation and he was agreeable. (2) Cellulitis: Laterality: right Site of cellulitis: extremity Site of cellulitis of extremity: lower extremity Qualified Code(s): L03.115 - Cellulitis of right lower limb History of Present Illness Reason for Consultation: Right great toe ulceration Attending Physician: Serafin Medina MD History of Present Illness Patient is a very pleasant 62-year-old male seen at bedside this morning. Patient has a history of a right great toe diabetic ulcer. He has been attending wound clinic regularly. He was brought to the ER because of fevers and worsening symptoms consistent of a right foot diabetic ulcer. Patient is afebrile but noted to have positive blood cultures. Pulses were mildly difficult to palpate reviewed note from last wound clinic visit noting that arterial studies were ordered at [facility] unfortunately I am not able to locate them for review. Vascular, arterial Dopplers reordered today. CT scan ordered previously not showing osteomyelitis, MRI showing signs consistent with osteomyelitis of distal and proximal phalanx. Allergies Allergy/AdvReac Type Severity Reaction Status Date / Time No Known Allergies Allergy Unverified 07/01/23 07:55 Home Medications Medication Instructions Recorded Confirmed Type lactulose 10 gram/15 mL (15 mL) 20 g PO QID PRN . 04/13/19 07/22/23 History oral solution sertraline 50 mg tablet 150 mg PO QAM 04/13/19 07/22/23 History dolutegravir 50 mg-lamivudine 300 1 tab PO DAILY 05/10/22 07/22/23 History mg tablet (Dovato) insulin glargine 100 unit/mL 10 unit subcut DAILY 05/10/22 07/22/23 History subcutaneous cartridge insulin regular human 100 unit/mL 1 sliding scale dose subcut 05/10/22 07/22/23 History injection solution (Novolin R USEASDIRECTD Regular U-100 Insulin) rosuvastatin 5 mg tablet 5 mg PO DAILY 05/10/22 07/22/23 History vancomycin 1 gram/200 mL in 0.9 % 1 g IV Q12H 07/01/23 07/22/23 History sod. chloride intravenous piggyback gabapentin 600 mg tablet 1,800 mg PO TID 07/22/23 07/22/23 History levetiracetam 1,000 mg tablet 1,000 mg PO BID 07/22/23 07/22/23 History (John) levetiracetam 500 mg tablet 500 mg PO BID 07/22/23 07/22/23 History lisinopril 2.5 mg tablet 2.5 mg PO DAILY 07/22/23 07/22/23 History metformin 850 mg tablet 850 mg PO BID 07/22/23 07/22/23 History olanzapine 15 mg tablet 15 mg PO HS 07/22/23 07/22/23 History Patient History Medical History Mass of soft tissue of neck Esophageal thickening Pulmonary nodule Hepatitis C Peripheral neuropathy HIV (human immunodeficiency virus infection) Surgical History S/P cholecystectomy Family History Mother Diabetes Sister Seizure Other No significant family history Social History Smoking Status: Current every day smoker Tobacco Type: Cigars and E-cigarettes / Vaping Hx Alcohol Use: No Hx Substance Use: Yes Last Used Substance Other:: ~ 2011 Preferred Language: [place] Communication Ability: Effective Bisque Placer Required: Yes Beliefs That Will Affect Care: None Current Living Situation: Other Current Living Situation Comment: CULLEN FISHER 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 There was no heavy or active drainage. Patient seen at bedside and overall was feeling pretty well he stated to me he was eating his breakfast during the time of my visit and was companied by 2 security guards. The ulceration itself was not covered by any dressings to the lack of drainage. Results & Data Vital Signs (Past 12 Hours) Vital Signs Temp Pulse Resp BP Pulse Ox O2 Del Method 07/24/23 07:24 37.4 C 95 H 18 170/81 H 93 Room Air 07/23/23 23:24 36.7 C 78 18 132/74 94 Room Air
--- NOTE | 2023-07-24 09:32 | Pharmacy Report ---
Pharmacy Glycemic Short Note 2 - Date of Service July 24, 2023 - Glycemic Short BSG Results (Last 24 hours): 07/23/23 07/23/23 07/23/23 11:30 16:30 20:35 Glucose POC Glucose 218 H 135 H 150 H 07/24/23 07/24/23 05:51 07:36 Glucose 139 H POC Glucose 148 H OUTPATIENT ANTIDIABETIC REGIMEN: * Insulin glargine 10 units SC daily * Metformin 850 mg PO BIDM HbA1c: 9.7% (07/23/23) ASSESSMENT: 07/24/23: * Blood sugars improved throughout the day yesterday * Received 35 units of insulin (15 units of basal and 20 units of prandial/correctional bolus) * No changes anticipated to regimen today 07/23/23: * J CARLOS is a 62 year old male presents to ED from local group home with fever and worsening diabetic foot infection of right great toe * Initial insulin orders last evening refused by patient * Blood sugars elevated this morning. Unsurprising, given HbA1c and insulin refusal last evening. * No changes to currently ordered regimen * Broad spectrum antibiotic regimen ordered in form of daptomycin and cefepime * Diet ordered at this time PLAN FOR INPATIENT GLYCEMIC CONTROL: * Hold outpatient oral diabetes medications * Basal insulin * Lantus 10 units SQ daily * Lantus 0-5-10 units SC HS (see EHR for details) * Bolus insulin * NovoLog per scale ACHS or Q6hrs while NPO * Goal Range: Low 110 mg/dL - High 140 mg/dL * Correction Factor: 20 mg/dL/unit * Nutritional / Prandial insulin per carb ratio of 1 unit per 7 grams CHO consumed
--- NOTE | 2023-07-24 12:20 | Orthopedic Consultation ---
Date of Consultation July 24, 2023 Assessment & Plan (1) Diabetic ulcer of right great toe: Due to the chronic wound and osteomyelitis of the distal and proximal phalanx of the right great toe amputation has been offered to the patient. He does wish to proceed with the surgery. He has been scheduled for right great toe amputation with Dr. Magallanes on July 25, 2023. Risk and complications of the procedure were explained to the patient and include but are not limited to infection, pain, bleeding, scarring, nerve and blood vessel damage, wound problems, weakness, stiffness, incomplete relief of symptoms, tendon or ligament injury, recurrent need for surgery, blood clots, embolisms, heart attack, stroke and . Patient agrees to proceed with surgery and informed consent was obtained. We will hold his Lovenox starting now so that he does not get any more doses prior to surgery. He has been made n.p.o. after midnight. Findings have been discussed with Dr. Magallanes and he will evaluate patient later today or tomorrow prior to his procedure. Approximately 40 minutes have been spending obtaining history, examining wound, organinizing everythin for the operating room schedule, obtaining consent and discussing with attending provider. History of Present Illness Reason for Consultation: Right great toe diabetic foot ulcer - referral from Dr. Childs Attending Physician: Serafin Medina MD History of Present Illness Patient is a very pleasant 62-year-old male seen at bedside this morning. Patient has a history of a right great toe diabetic ulcer. He has been attending wound clinic regularly. He was brought to the ER because of fevers and worsening symptoms consistent of a right foot diabetic ulcer. Patient is afebrile but noted to have positive blood cultures, gram negative bacilli Vascular, arterial Dopplers reordered today. CT scan ordered previously not showing osteomyelitis, MRI showing signs consistent with osteomyelitis of distal and proximal phalanx. Dr. Childs requested Dr. Magallanes to evaluate patient for consideration of more timely amputation of right great toe while inpatient due to bacteremia and evidence of osteomyelitis on MRI. Allergies Allergy/AdvReac Type Severity Reaction Status Date / Time No Known Allergies Allergy Unverified 07/01/23 07:55 Home Medications Medication Instructions Recorded Confirmed Type lactulose 10 gram/15 mL (15 mL) 20 g PO QID PRN . 04/13/19 07/22/23 History oral solution sertraline 50 mg tablet 150 mg PO QAM 04/13/19 07/22/23 History dolutegravir 50 mg-lamivudine 300 1 tab PO DAILY 05/10/22 07/22/23 History mg tablet (Dovato) insulin glargine 100 unit/mL 10 unit subcut DAILY 05/10/22 07/22/23 History subcutaneous cartridge insulin regular human 100 unit/mL 1 sliding scale dose subcut 05/10/22 07/22/23 History injection solution (Novolin R USEASDIRECTD Regular U-100 Insulin) rosuvastatin 5 mg tablet 5 mg PO DAILY 05/10/22 07/22/23 History vancomycin 1 gram/200 mL in 0.9 % 1 g IV Q12H 07/01/23 07/22/23 History sod. chloride intravenous piggyback gabapentin 600 mg tablet 1,800 mg PO TID 07/22/23 07/22/23 History levetiracetam 1,000 mg tablet 1,000 mg PO BID 07/22/23 07/22/23 History (Keppra) levetiracetam 500 mg tablet 500 mg PO BID 07/22/23 07/22/23 History lisinopril 2.5 mg tablet 2.5 mg PO DAILY 07/22/23 07/22/23 History metformin 850 mg tablet 850 mg PO BID 07/22/23 07/22/23 History olanzapine 15 mg tablet 15 mg PO HS 07/22/23 07/22/23 History Patient History Medical History Mass of soft tissue of neck Esophageal thickening Pulmonary nodule Hepatitis C Peripheral neuropathy HIV (human immunodeficiency virus infection) Surgical History S/P cholecystectomy Family History Mother Diabetes Sister Seizure Other No significant family history Social History Smoking Status: Current every day smoker Tobacco Type: Cigars and E-cigarettes / Vaping Hx Alcohol Use: No Hx Substance Use: Yes Last Used Substance Other:: ~ 2011 Preferred Language: Italian Communication Ability: Effective Cod Clerk Required: Yes Beliefs That Will Affect Care: None Current Living Situation: Other Current Living Situation Comment: [facility] 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 Denies significant pain. Denies any injuries. Denies any other wounds. Physical Exam Musculoskeletal: Exam of right great toe: He has a dried eschar from the top of his right great toe that extends medially across the anterior aspect of his toe and down into the medial base of the toe. Mild erythema around the wound bed. No fluctuance. Nontender to palpation. On the most medial aspect of the wound at the base of the toe I was able to express a teardrop of reddish purulent type material. He has some mild edema into the metatarsal head region across the plantar surface of his foot. He has some tenderness down into the MTP joint with palpation. No warmth to the foot. Mild swelling throughout all of his toes. Able to wiggle the toes without discomfort. Capillary fill is brisk. Trace dorsalis pedis and posterior tibial pulses and also dopplerable. Full ankle range of motion with no edema. No evidence of surrounding cellulitis. Dressing was applied to the right foot with Kerlix gauze due to the mild drainage. Results & Data Vital Signs (Past 12 Hours) Vital Signs Temp Pulse Resp BP Pulse Ox O2 Del Method 07/24/23 07:45 Room Air 07/24/23 07:24 37.4 C 95 H 18 170/81 H 93 Room Air Laboratory Results 07/24/23 07/24/23 07/24/23 Range/Units 11:48 07:36 05:51 WBC 11.57 H (4.8-10.8) K/ul RBC 3.74 L (4.70-6.10) M/uL Hgb 11.2 L (14.0-18.0) g/dl Hct 33.0 L (42.0-52.0) % MCV 88.2 (80.0-100.0) fL MCH 29.9 (25.0-34.0) pg MCHC 33.9 (32.0-36.0) g/dL RDW Std Deviation 40.2 (36.4-46.3) fL RDW Coeff of Malachi 12.4 (11.5-14.5) % Plt Count 260 (130-400) K/uL MPV 11.3 (9.4-12.4) fL Immature Gran % (Auto) 0.9 % Neut % (Auto) 67.6 % Lymph % (Auto) 20.1 % [place] % (Auto) 10.1 % Eos % (Auto) 1.0 % Baso % (Auto) 0.3 % Neut # (Auto) 7.81 H (1.40-6.50) K/uL Lymph # (Auto) 2.33 (1.20-3.40) K/uL [place] # (Auto) 1.17 H (0.11-0.59) K/uL Eos # (Auto) 0.12 (0.00-0.50) K/uL Baso # (Auto) 0.04 (0.00-0.20) K/uL Immature Gran # (Auto) 0.10 (0.01-0.20) K/uL Sodium 137 (136-145) mmol/L Potassium 4.1 (3.5-5.1) mmol/L Chloride 104 (98-107) mmol/L Carbon Dioxide 23 (21-32) mmol/L Anion Gap 10 (3-11) BUN 12 (6-23) mg/dl Creatinine 0.95 (0.6-1.4) mg/dl Est Cr Clr Drug Dosing 78.1 ml/min Est GFR ( Amer) 98.3 ml/min Est GFR (Non-Af Amer) 84.9 ml/min BUN/Creatinine Ratio 12.6 (10-20) Glucose 139 H (70-99(Fasting)) mg/dl POC Glucose 202 H 148 H (70-99) mg/dl Calcium 8.7 (8.6-10.3) mg/dl Total Creatine Kinase 107 (30-223) U/L Enterobacterales (PCR) (NotDetected) K. pneumoniae group (PCR) (NotDetected) mcr-1 Colistin Res Gene PCR (NotDetected) blaIMP Car res Gene PCR (NotDetected) KPC-Carbap Res Gene PCR (NotDetected) blaNDM Car Res Gene PCR (NotDetected) OXA-48 Carbapenem Resis Gene (PCR) (NotDetected) blaVIM Car Res Gene PCR (NotDetected) CTX-M Gene Resistance (PCR) (NotDetected) Bld Cult ID Panel PCR (NotDetected) 07/23/23 07/23/23 07/22/23 Range/Units 20:35 16:30 17:05 WBC (4.8-10.8) K/ul RBC (4.70-6.10) M/uL Hgb (14.0-18.0) g/dl Hct (42.0-52.0) % MCV (80.0-100.0) fL MCH (25.0-34.0) pg MCHC (32.0-36.0) g/dL RDW Std Deviation (36.4-46.3) fL RDW Coeff of Malachi (11.5-14.5) % Plt Count (130-400) K/uL MPV (9.4-12.4) fL Immature Gran % (Auto) % Neut % (Auto) % Lymph % (Auto) % [place] % (Auto) % Eos % (Auto) % Baso % (Auto) % Neut # (Auto) (1.40-6.50) K/uL Lymph # (Auto) (1.20-3.40) K/uL [place] # (Auto) (0.11-0.59) K/uL Eos # (Auto) (0.00-0.50) K/uL Baso # (Auto) (0.00-0.20) K/uL Immature Gran # (Auto) (0.01-0.20) K/uL Sodium (136-145) mmol/L Potassium (3.5-5.1) mmol/L Chloride (98-107) mmol/L Carbon Dioxide (21-32) mmol/L Anion Gap (3-11) BUN (6-23) mg/dl Creatinine (0.6-1.4) mg/dl Est Cr Clr Drug Dosing ml/min Est GFR ( Amer) ml/min Est GFR (Non-Af Amer) ml/min BUN/Creatinine Ratio (10-20) Glucose (70-99(Fasting)) mg/dl POC Glucose 150 H 135 H (70-99) mg/dl Calcium (8.6-10.3) mg/dl Total Creatine Kinase (30-223) U/L Enterobacterales (PCR) DETECTED A (NotDetected) K. pneumoniae group (PCR) DETECTED A (NotDetected) mcr-1 Colistin Res Gene PCR Not Detected (NotDetected) blaIMP Car res Gene PCR Not Detected (NotDetected) KPC-Carbap Res Gene PCR Not Detected (NotDetected) blaNDM Car Res Gene PCR Not Detected (NotDetected) OXA-48 Carbapenem Resis Gene (PCR) Not Detected (NotDetected) blaVIM Car Res Gene PCR Not Detected (NotDetected) CTX-M Gene Resistance (PCR) Not Detected (NotDetected) Bld Cult ID Panel PCR See PCR Comment (NotDetected) Microbiology 07/23/23 Unknown Urine Culture - Preliminary Urine,Clean Catch No growth - Less than 1,000 colonies/mL, Final report to follow. 07/22/23 17:05 Aerobic Blood Culture - Preliminary Blood Gram negative bacilli Anaerobic Blood Culture - Preliminary No growth in Anaerobic bottle after 24 hours. 07/22/23 17:10 Aerobic Blood Culture - Preliminary Blood No growth in Aerobic bottle after 24 hours. Anaerobic Blood Culture - Preliminary No growth in Anaerobic bottle after 24 hours. Diagnostic Findings MRI foot: IMPRESSION: Great toe ulceration/infection. No fluid collection or abscess. Positive for osteomyelitis of the great toe proximal and distal phalanx. IMPRESSION: Chronic ulceration of the great toe, correlate with physical exam. No fluid collection or abscess. No periostitis or focal osteopenia to indicate osteomyelitis at this time. If there is continued concern for osteomyelitis, MRI is recommended to fully exclude. Arterial US: currently pending. Previous XOCHITL's = 0.9
--- NOTE | 2023-07-24 14:08 | Ultrasound Report ---
RIGHT LOWER EXTREMITY ARTERIAL DOPPLER ULTRASOUND CLINICAL HISTORY: infection right great toe COMPARISON STUDY: No previous studies for comparison. TECHNIQUE: Bilateral ankle to brachial indices were attempted. Color and duplex Doppler sonography of the arterial system of the right lower extremity was performed. FINDINGS: Ankle to brachial indices could not be obtained due to vessel noncompressibility. Moderate calcified plaque was noted within the right lower extremity vessels. There was biphasic flow within t he right common femoral and superficial femoral arteries. Biphasic flow is noted within the right pop liteal artery. A mildly elevated peak systolic velocity of 205 cm/s within the right popliteal artery was noted. There is biphasic flow within the right posterior tibial and peroneal arteries. There was monophasic flow within the right anterior tibial and dorsalis pedis vessels. Vessels were patent. IMPRESSION: 1. Nondiagnostic ankle brachial indices due to vessel noncompressibility. 2. Moderate calcified atherosclerotic plaque within the right lower extremity. 3. Mildly elevated velocity within the right popliteal artery. This may reflect an underlying stenosi s. 4. Patent vessels within the right lower extremity. Monophasic flow within the right anterior tibial artery and dorsalis pedis. ACT 112: Negative or not required by law. Electronically signed by: Boy Farrell M.D. 07/24/2023 2:07 PM
--- NOTE | 2023-07-24 14:23 | Hospitalist Progress Note ---
Date of Service July 24, 2023 Assessment & Plan (1) Diabetic ulcer of right great toe: (2) HIV (human immunodeficiency virus infection): (3) Hepatitis C: (4) Tobacco abuse: (5) Seizure disorder: Plan Acute osteomyelitis of great toe Gram-negative bacteremia 62-year-old male with history of HIV, hep C, diabetes, seizure disorder [facility] for fever chills on background of right toe infection. Diabetic right toe infection-being treated [facility] but developed fever and chills and send to ED. Foot MRI; great toe ulceration/infection, positive for osteomyelitis. Blood culture1/4 positive for gram-negative bacilli Urine cultureno growth Duplex lower extremitynone diagnosis ankle brachial index. Patent vessel within right lower extremity. Continue on daptomycin and cefepime for the time being. Patient to undergo amputation tomorrow a.m. N.p.o. from midnight Repeat blood culture tomorrow. Will consult ID for further recommendation after amputation and repeat blood culture Hypertensionwill start on nifedipine 60 mg. Lisinopril increased to 20 mg once a day HIV-continue home meds Seizure disorder-on Keppra Diabetes type 2 with peripheral neuropathy-continue insulin, adjust as indicated. Continue gabapentin. Pharmacy on board History of asthma Patient reports he has a history of asthma and smoking Exacerbation As needed nebs, albuterol Hypomagnesemia-repleted, recheck in am Mood disorder- on zofoft, zyprexa DVT prophylaxis-subcu Lovenox Disposition-patient hospitalized for acute osteomyelitis of great toe and bacteremia. To undergo amputation tomorrow AM. Full code Time spent evaluating patient, direct bedside care, chart review, placing orders, interpretation of diagnostic studies, discussion with consultants, patient, and family members, as well as other required patient management activi ties is 50 minutes Please note the above document was generated using voice recognition software. It may contain grammatical, syntax or spelling errors. Any formal questions or concerns about the content, text or information contained within the body of this dictation should be directly addressed to the provider for clarification Admission and Anticipated Discharge Date Admission Date: July 22, 2023 Subjective Patient seen and examined at bedside. He reports pain on his toe. Was febrile overnight Blood pressure on higher side. Review of Systems Review of Systems: All systems reviewed & are unremarkable except as noted in Subjective Physical Exam Physical Exam: General- oriented x 3, not in distress, speaks in sentences with no effort or accessory muscle use Eyes- anicteric Neck- no JVD Lungs- clear breath sounds bilaterally, no rales/wheezes Heart- normal rate, regular rhythm; no murmurs Abdomen- normal bowel sounds, nondistended, soft, nontender Extremities- no pretibial edema, no calf tenderness Right great toe-positive moderate edema, discoloration medial aspect, No active bleeding or discharge Neuro- alert, oriented x 3; no gross focal neurologic deficits Skin- warm & dry Results & Data Results & Data Vital Signs (Past 12 Hours) Vital Signs Temp Pulse Resp BP Pulse Ox O2 Del Method 07/24/23 07:45 Room Air 07/24/23 07:24 37.4 C 95 H 18 170/81 H 93 Room Air
[2023-07-24] MEDS ORDERED: lisinopril 20 MG TAB PO SCH (14:30)
[2023-07-24] MEDS: NIFEdipine EXTENDED REL 30 MG TABCR PO SCH (15:35)
[2023-07-24] MEDS: DAPTOmycin 400 MG in SYRINGE 0 ML IV SCH (16:44)
[2023-07-24 22:10] LABS: Basophils # (auto) 0.04 K/uL (0.00-0.20); Basophils % (auto) 0.3 %; Eosinophils # (auto) 0.11 K/uL (0.00-0.50); Eosinophils % (auto) 0.8 %; Hematocrit (blood only) 32.9 % (42.0-52.0); Hemoglobin 11.1 g/dl (14.0-18.0); Immature Granulocytes # (auto) 0.12 K/uL (0.01-0.20); Immature Granulocytes % (auto) 0.8 %; Lymphocytes # (auto) 3.28 K/uL (1.20-3.40); Lymphocytes % (auto) 23.2 %; Mean Corpuscular Hemoglobin 29.6 pg (25.0-34.0); Mean Corpuscular Hgb Conc 33.7 g/dL (32.0-36.0); Mean Corpuscular Volume 87.7 fL (80.0-100.0); Mean Platelet Volume 11.3 fL (9.4-12.4); Monocytes # (auto) 1.34 K/uL (0.11-0.59); Monocytes % (auto) 9.5 %; Neutrophils # (auto) 9.23 K/uL (1.40-6.50); Neutrophils % (auto) 65.4 %; Platelet Count 280 K/uL (130-400); RDW Coefficient of Variation 12.4 % (11.5-14.5); RDW Standard Deviation 40.3 fL (36.4-46.3); Red Blood Count 3.75 M/uL (4.70-6.10); White Blood Count 14.12 K/ul (4.8-10.8)
[2023-07-24 22:16] LABS: BUN Creatinine Ratio 13.5 (10-20); Calcium 8.6 mg/dl (8.6-10.3); Creatinine Clr Calc Pharmacy 58.9 ml/min; Est GFR (African American) 69.9 ml/min; Est GFR (Non-African American) 60.3 ml/min; Magnesium 1.7 mg/dl (1.7-2.4); Potassium 4.4 mmol/L (3.5-5.1)
[2023-07-24 22:23] LABS: Troponin I High Sensitivity 13.9 pg/ml (0-20)
[2023-07-24] MEDS: LEVALBUTEROL 1.25 MG/3 ML NEB ONE (23:00)
[2023-07-24] MEDS: LEVALBUTEROL 1.25MG/0.5ML NEB NEB STA (23:01)
[2023-07-25] MEDS ORDERED: Nursing to Pharmacy Communication SCH ×2 (06:00→18:15)
[2023-07-25] MEDS: INSULIN ASPART PER UNIT CHARGE SC SCH ×2 (06:19→18:40)
--- NOTE | 2023-07-25 07:42 | XRay Report ---
XR chest 1V portable HISTORY: Shortness of breath. COMPARISON: Chest 07/22/2023. FINDINGS: No pneumothorax. No pleural effusions. The heart remains mildly enlarged. The left lung is clear. There is mild central pulmonary vascular congestion without overt edema. Elevated right hemidi aphragm again noted. Right basilar linear densities have slightly progressed. IMPRESSION: 1. Right basilar linear densities have slightly progressed. This favors atelectasis. A pneumonia coul d also have a similar appearance. 2. Cardiomegaly and mild congestive change. ACT 112: Negative or not required by law. Electronically signed by: Severiano Mathew M.D. 07/25/2023 7:40 AM
[2023-07-25 08:03] LABS: Basophils # (auto) 0.04 K/uL (0.00-0.20); Basophils % (auto) 0.3 %; Eosinophils # (auto) 0.17 K/uL (0.00-0.50); Eosinophils % (auto) 1.3 %; Hematocrit (blood only) 32.7 % (42.0-52.0); Immature Granulocytes # (auto) 0.15 K/uL (0.01-0.20); Immature Granulocytes % (auto) 1.1 %; Lymphocytes # (auto) 2.51 K/uL (1.20-3.40); Lymphocytes % (auto) 18.5 %; Mean Corpuscular Hemoglobin 29.8 pg (25.0-34.0); Mean Corpuscular Hgb Conc 33.6 g/dL (32.0-36.0); Mean Corpuscular Volume 88.6 fL (80.0-100.0); Monocytes # (auto) 1.27 K/uL (0.11-0.59); Monocytes % (auto) 9.4 %; Neutrophils % (auto) 69.4 %; Platelet Count 279 K/uL (130-400); RDW Coefficient of Variation 12.2 % (11.5-14.5); RDW Standard Deviation 39.8 fL (36.4-46.3); Red Blood Count 3.69 M/uL (4.70-6.10); White Blood Count 13.54 K/ul (4.8-10.8)
[2023-07-25] MEDS: LANTUS PER UNIT CHARGE SQ ONE (08:15)
[2023-07-25 08:16] LABS: BUN Creatinine Ratio 14.9 (10-20); Calcium 8.7 mg/dl (8.6-10.3); Creatinine Clr Calc Pharmacy 61.3 ml/min; Est GFR (African American) 73.4 ml/min; Est GFR (Non-African American) 63.3 ml/min; Potassium 4.2 mmol/L (3.5-5.1)
--- NOTE | 2023-07-25 08:25 | Orthopedic Progress Note ---
Date of Service July 25, 2023 Assessment & Plan (1) Diabetic ulcer of right great toe: Plan: Plan for right great toe amputation, possible second toe amputation with Dr. Magallanes today. Currently NPO. New consent obtained, due to addition of possible second toe amputation May be weight bear as tolerated All questions answered. Patient understands and agrees with the plan. Admission and Anticipated Discharge Date Admission Date: July 22, 2023 Subjective Patient resting in bed, denies pain in right foot. Currently NPO. Physical Exam Musculoskeletal: Right foot not examined this morning, dressing in place. Results & Data Vital Signs (Past 12 Hours) Vital Signs Temp Pulse Resp BP Pulse Ox O2 Del Method O2 Flow Rate 07/25/23 06:14 94 Nasal Cannula 2 07/25/23 06:13 36.8 C 95 H 17 143/73 H 93 Nasal Cannula 2 07/24/23 23:53 37.0 C 98 H 18 118/68 94 Nasal Cannula 2 07/24/23 23:03 94 H 18 91 Nasal Cannula 2 07/24/23 21:03 95 H 93 Nasal Cannula 2 07/24/23 20:39 37.9 C H 100 H 22 149/73 H 85 L Room Air Laboratory Results 07/25/23 07/25/23 07/24/23 Range/Units 07:30 06:12 21:34 WBC 13.54 H 14.12 H (4.8-10.8) K/ul RBC 3.69 L 3.75 L (4.70-6.10) M/uL Hgb 11.0 L 11.1 L (14.0-18.0) g/dl Hct 32.7 L 32.9 L (42.0-52.0) % MCV 88.6 87.7 (80.0-100.0) fL MCH 29.8 29.6 (25.0-34.0) pg MCHC 33.6 33.7 (32.0-36.0) g/dL RDW Std Deviation 39.8 40.3 (36.4-46.3) fL RDW Coeff of Malachi 12.2 12.4 (11.5-14.5) % Plt Count 279 280 (130-400) K/uL MPV 11.0 11.3 (9.4-12.4) fL Immature Gran % (Auto) 1.1 0.8 % Neut % (Auto) 69.4 65.4 % Lymph % (Auto) 18.5 23.2 % [place] % (Auto) 9.4 9.5 % Eos % (Auto) 1.3 0.8 % Baso % (Auto) 0.3 0.3 % Neut # (Auto) 9.40 H 9.23 H (1.40-6.50) K/uL Lymph # (Auto) 2.51 3.28 (1.20-3.40) K/uL [place] # (Auto) 1.27 H 1.34 H (0.11-0.59) K/uL Eos # (Auto) 0.17 0.11 (0.00-0.50) K/uL Baso # (Auto) 0.04 0.04 (0.00-0.20) K/uL Immature Gran # (Auto) 0.15 0.12 (0.01-0.20) K/uL Sodium 135 L 133 L (136-145) mmol/L Potassium 4.2 4.4 (3.5-5.1) mmol/L Chloride 102 101 (98-107) mmol/L Carbon Dioxide 21 23 (21-32) mmol/L Anion Gap 12 H 9 (3-11) BUN 18 17 (6-23) mg/dl Creatinine 1.21 1.26 D (0.6-1.4) mg/dl Est Cr Clr Drug Dosing 61.3 58.9 ml/min Est GFR ( Amer) 73.4 69.9 ml/min Est GFR (Non-Af Amer) 63.3 60.3 ml/min BUN/Creatinine Ratio 14.9 13.5 (10-20) Glucose 172 H 189 H (70-99(Fasting)) mg/dl POC Glucose 151 H (70-99) mg/dl Calcium 8.7 8.6 (8.6-10.3) mg/dl Magnesium 1.7 (1.7-2.4) mg/dl Total Creatine Kinase (30-223) U/L Troponin I High Sens 13.9 (0-20) pg/ml 07/24/23 07/24/23 07/24/23 Range/Units 20:38 16:24 15:31 WBC (4.8-10.8) K/ul RBC (4.70-6.10) M/uL Hgb (14.0-18.0) g/dl Hct (42.0-52.0) % MCV (80.0-100.0) fL MCH (25.0-34.0) pg MCHC (32.0-36.0) g/dL RDW Std Deviation (36.4-46.3) fL RDW Coeff of Malachi (11.5-14.5) % Plt Count (130-400) K/uL MPV (9.4-12.4) fL Immature Gran % (Auto) % Neut % (Auto) % Lymph % (Auto) % [place] % (Auto) % Eos % (Auto) % Baso % (Auto) % Neut # (Auto) (1.40-6.50) K/uL Lymph # (Auto) (1.20-3.40) K/uL [place] # (Auto) (0.11-0.59) K/uL Eos # (Auto) (0.00-0.50) K/uL Baso # (Auto) (0.00-0.20) K/uL Immature Gran # (Auto) (0.01-0.20) K/uL Sodium (136-145) mmol/L Potassium (3.5-5.1) mmol/L Chloride (98-107) mmol/L Carbon Dioxide (21-32) mmol/L Anion Gap (3-11) BUN (6-23) mg/dl Creatinine (0.6-1.4) mg/dl Est Cr Clr Drug Dosing ml/min Est GFR ( Amer) ml/min Est GFR (Non-Af Amer) ml/min BUN/Creatinine Ratio (10-20) Glucose (70-99(Fasting)) mg/dl POC Glucose 177 H 132 H 129 H (70-99) mg/dl Calcium (8.6-10.3) mg/dl Magnesium (1.7-2.4) mg/dl Total Creatine Kinase (30-223) U/L Troponin I High Sens (0-20) pg/ml 07/24/23 07/24/23 Range/Units 11:48 05:51 WBC (4.8-10.8) K/ul RBC (4.70-6.10) M/uL Hgb (14.0-18.0) g/dl Hct (42.0-52.0) % MCV (80.0-100.0) fL MCH (25.0-34.0) pg MCHC (32.0-36.0) g/dL RDW Std Deviation (36.4-46.3) fL RDW Coeff of Malachi (11.5-14.5) % Plt Count (130-400) K/uL MPV (9.4-12.4) fL Immature Gran % (Auto) % Neut % (Auto) % Lymph % (Auto) % [place] % (Auto) % Eos % (Auto) % Baso % (Auto) % Neut # (Auto) (1.40-6.50) K/uL Lymph # (Auto) (1.20-3.40) K/uL [place] # (Auto) (0.11-0.59) K/uL Eos # (Auto) (0.00-0.50) K/uL Baso # (Auto) (0.00-0.20) K/uL Immature Gran # (Auto) (0.01-0.20) K/uL Sodium (136-145) mmol/L Potassium (3.5-5.1) mmol/L Chloride (98-107) mmol/L Carbon Dioxide (21-32) mmol/L Anion Gap (3-11) BUN (6-23) mg/dl Creatinine (0.6-1.4) mg/dl Est Cr Clr Drug Dosing ml/min Est GFR ( Amer) ml/min Est GFR (Non-Af Amer) ml/min BUN/Creatinine Ratio (10-20) Glucose (70-99(Fasting)) mg/dl POC Glucose 202 H (70-99) mg/dl Calcium (8.6-10.3) mg/dl Magnesium (1.7-2.4) mg/dl Total Creatine Kinase 107 (30-223) U/L Troponin I High Sens (0-20) pg/ml Microbiology 07/22/23 17:05 Aerobic Blood Culture - Preliminary Blood Klebsiella pneumoniae Anaerobic Blood Culture - Preliminary No growth in Anaerobic bottle after 48 hours. 07/22/23 17:10 Aerobic Blood Culture - Preliminary Blood No growth in Aerobic bottle after 48 hours. Anaerobic Blood Culture - Preliminary No growth in Anaerobic bottle after 48 hours. 07/23/23 Unknown Urine Culture - Preliminary Urine,Clean Catch No growth - Less than 1,000 colonies/mL, Final report to follow.
[2023-07-25] MEDS: LACTATED RINGER'S 1,000 ML IV SCH (13:33)
--- NOTE | 2023-07-25 14:26 | Hospitalist Progress Note ---
Date of Service July 25, 2023 Assessment & Plan (1) Diabetic ulcer of right great toe: (2) HIV (human immunodeficiency virus infection): (3) Hepatitis C: (4) Tobacco abuse: (5) Seizure disorder: Plan Acute osteomyelitis of great toe Lives alone pneumonia bacteremia 62-year-old male with history of HIV, hep C, diabetes, seizure disorder sent [facility] for fever chills on background of right toe infection. Diabetic right toe infection-being treated [facility] but developed fever and chills and send to ED. Foot MRI; great toe ulceration/infection, positive for osteomyelitis. Blood culture1/4 positive for Klebsiella pneumoniae Urine cultureno growth Duplex lower extremitynone diagnosis ankle brachial index. Patent vessel within right lower extremity. Change cefepime to ceftriaxone. Continue on daptomycin to cover for osteomyelitis Patient to undergo amputation today. Infectious disease consulted to give recommendation regarding antibiotic choice, route and duration. Hypertensionwill start on nifedipine 60 mg. Lisinopril increased to 10 mg once a day HIV-continue home meds Seizure disorder-on Keppra, continue Diabetes type 2 with peripheral neuropathy-continue insulin, adjust as indicated. Continue gabapentin. Pharmacy on board History of asthma Patient reports he has a history of asthma and smoking Exacerbation As needed nebs, albuterol Hypomagnesemia-repleted, recheck in am Mood disorder- on zofoft, zyprexa DVT prophylaxis-subcu Lovenox on hold for surgery Disposition-patient hospitalized for acute osteomyelitis of great toe and bacteremia. To undergo amputation today. ID evaluation pending Full code Time spent evaluating patient, direct bedside care, chart review, placing orders, interpretation of diagnostic studies, discussion with consultants, patient, and family members, as well as other required patient management activities is 50 minutes Please note the above document was generated using voice recognition software. It may contain grammatical, syntax or spelling errors. Any formal questions or concerns about the content, text or information contained within the body of this dictation should be directly addressed to the provider for clarification Admission and Anticipated Discharge Date Admission Date: July 22, 2023 Subjective Patient seen and examined at bedside. He reports she is feeling tired. No significant events overnight Review of Systems Review of Systems: All systems reviewed & are unremarkable except as noted in Subjective Physical Exam Physical Exam: General- oriented x 3, not in distress, speaks in sentences with no effort or accessory muscle use Eyes- anicteric Neck- no JVD Lungs- clear breath sounds bilaterally, no rales/wheezes Heart- normal rate, regular rhythm; no murmurs Abdomen- normal bowel sounds, nondistended, soft, nontender Extremities- no pretibial edema, no calf tenderness Right great toe-positive moderate edema, discoloration medial aspect, No active bleeding or discharge Neuro- alert, oriented x 3; no gross focal neurologic deficits Skin- warm & dry Results & Data Results & Data Vital Signs (Past 12 Hours) Vital Signs Temp Pulse Resp BP BP Pulse Ox O2 Del Method 07/25/23 13:26 37.1 C 92 H 20 115/65 98 Room Air 07/25/23 08:15 Room Air 07/25/23 06:14 94 Nasal Cannula 07/25/23 06:13 36.8 C 95 H 17 143/73 H 93 Nasal Cannula O2 Flow Rate 07/25/23 13:26 07/25/23 08:15 07/25/23 06:14 2 07/25/23 06:13 2
[2023-07-25] MEDS ORDERED: ONDANSETRON INJ 2 MG/ML 2 ML VIAL ONE (14:54)
[2023-07-25] MEDS ORDERED: LIDOCAINE 2% 2 ML VIAL/AMP(20MG/ML) INFIL ONE (14:54)
[2023-07-25] MEDS ORDERED: MIDAZOLAM HCL 1 MG/ML 2ML VIAL ONE (14:54)
[2023-07-25] MEDS ORDERED: DEXAMETHASONE SOD INJ 4 MG/ML VIAL ONE (14:54)
[2023-07-25] MEDS ORDERED: fentaNYL citrate PF 100 MCG/2 ML VIAL ONE (14:54)
[2023-07-25] MEDS ORDERED: PROPOFOL IV EMULSION 10 MG/ML 20 ML VIAL IV ONE (14:54)
[2023-07-25] MEDS ORDERED: ePHEDrine sulfate 50 MG/ML AMP IV PRN (15:02)
[2023-07-25] MEDS ORDERED: ATROPINE SULFATE 0.1 MG/ML 10ML SYR IV PRN (15:02)
--- NOTE | 2023-07-25 15:02 | Anesthesiology Consultation ---
Date of Service July 25, 2023 Assessment & Plan ASA ASA4 Proposed Anesthesia Anesthesia Type: General Risk / Benefits Reviewed With: PT / POA / Parent / Guardian, Accepts Plan and Informed Consent Obtained History Surgery Operation Date: 07/25/23 13:30 Proposed Procedures p Right Great Toe Amputation, Possible 2nd Toe amputation - Reese Magallanes MD Height/Weight Height: 5 ft 2 in Weight: 91.6 kg Allergies Allergy/AdvReac Type Severity Reaction Status Date / Time No Known Allergies Allergy Unverified 07/01/23 07:55 Medications Home Medications Medication Instructions Recorded Confirmed Last Taken lactulose 10 gram/15 mL (15 mL) 20 g PO QID PRN . 04/13/19 07/22/23 03/19/19 07:00 oral solution sertraline 50 mg tablet 150 mg PO QAM 04/13/19 07/22/23 04/13/19 07:00 dolutegravir 50 mg-lamivudine 300 1 tab PO DAILY 05/10/22 07/22/23 Unknown mg tablet (Dovato) insulin glargine 100 unit/mL 10 unit subcut DAILY 05/10/22 07/22/23 Unknown subcutaneous cartridge insulin regular human 100 unit/mL 1 sliding scale dose subcut 05/10/22 07/22/23 Unknown injection solution (Novolin R USEASDIRECTD Regular U-100 Insulin) rosuvastatin 5 mg tablet 5 mg PO DAILY 05/10/22 07/22/23 Unknown vancomycin 1 gram/200 mL in 0.9 % 1 g IV Q12H 07/01/23 07/22/23 Unknown sod. chloride intravenous piggyback gabapentin 600 mg tablet 1,800 mg PO TID 07/22/23 07/22/23 Unknown levetiracetam 1,000 mg tablet 1,000 mg PO BID 07/22/23 07/22/23 Unknown (Keppra) levetiracetam 500 mg tablet 500 mg PO BID 07/22/23 07/22/23 Unknown lisinopril 2.5 mg tablet 2.5 mg PO DAILY 07/22/23 07/22/23 Unknown metformin 850 mg tablet 850 mg PO BID 07/22/23 07/22/23 Unknown olanzapine 15 mg tablet 15 mg PO HS 07/22/23 07/22/23 Unknown Active Medications Generic Name Dose Route Start Last Admin Trade Name Freq PRN Reason Stop Dose Admin Acetaminophen 500 mg 07/22/23 21:08 07/23/23 16:04 Acetaminophen 500 Mg Tab PO 08/21/23 21:07 500 mg Q4H PRN Administration Pain Enoxaparin Sodium 40 mg 07/23/23 09:00 07/24/23 07:55 Enoxaparin Inj 40 Mg/0.4 Ml Syr SQ 08/22/23 08:59 40 mg QAM MARIO Administration Gabapentin 1,200 mg 07/22/23 21:00 07/25/23 08:17 Gabapentin 600 Mg Tab PO 08/21/23 20:59 1,200 mg TID MARIO Administration Cefepime HCl 2,000 mg/ Syringe 20 mls @ 5 mls/min 07/23/23 02:00 07/25/23 10:38 IV 07/30/23 01:59 5 mls/min Q8H MARIO Administration Protocol Daptomycin 400 mg/ Syringe 8 mls @ 4 mls/min 07/24/23 16:00 07/24/23 16:44 IV 07/31/23 15:59 4 mls/min Q24H MARIO Administration Protocol Lactated Ringer's 1,000 mls @ 15 mls/hr 07/25/23 13:45 07/25/23 13:33 Lr IV 08/24/23 13:44 15 mls/hr .Q24H MARIO Administration Insulin Aspart 0 units 07/25/23 06:15 07/25/23 12:21 Insulin Aspart Per Unit Charge SC 08/21/23 20:59 2 units Q6 MARIO Administration Insulin Glargine 0 units 07/23/23 21:00 07/24/23 21:55 Lantus Per Unit Charge SQ 08/22/23 20:59 5 units HS MARIO Administration Protocol Levetiracetam 1,500 mg 07/22/23 21:00 07/25/23 08:17 Levetiracetam 500 Mg Tab PO 08/21/23 20:59 1,500 mg BID MARIO Administration Nifedipine 60 mg 07/24/23 14:30 07/25/23 08:17 Nifedipine Extended Rel 30 Mg Tabcr PO 08/23/23 14:29 60 mg QAM MARIO Administration Dolutegravir- 1 tab 07/23/23 09:00 07/25/23 08:17 Lamivudine [Dovato] PO 08/22/23 08:59 1 tab 50-300 Mg Tablet) ( DAILY MARIO Administration Pom) Olanzapine 15 mg 07/22/23 21:00 07/24/23 21:45 Olanzapine 5 Mg Tablet PO 08/21/23 20:59 15 mg HS MARIO Administration Oxycodone HCl 2.5 mg 07/22/23 21:08 07/24/23 16:43 Oxycodone Hcl Ir 5 Mg Tab (Immediate Release) PO 08/05/23 21:07 2.5 mg Q6H PRN Administration Pain Sertraline HCl 150 mg 07/23/23 09:00 07/25/23 08:16 Sertraline Hcl 50 Mg Tablet PO 08/22/23 08:59 150 mg QAM MARIO Administration NPO Date Last Intake of Fluids: 07/24/23 Time Last Intake of Fluids: 23:00 Date Last Intake of Solids: 07/24/23 Time Last Intake of Solids: 21:00 Past Medical History Medical History Mass of soft tissue of neck Esophageal thickening Pulmonary nodule Hepatitis C Peripheral neuropathy HIV (human immunodeficiency virus infection) Exercise / Class Metabolic Activity II 4-5 Yardwork/Stairs/Walk up hill Past Family History Family History Mother Diabetes Sister Seizure Other No significant family history Past Surgical History Surgical History S/P cholecystectomy Past Anesthesia History No Hx of Anesthesia Complications and No Family Hx of Anesthesia Complications History of PONV No Hx of PONV and No Hx of Motion Sickness Social History Smoking Status: Current every day smoker Hx Alcohol Use: No Hx Substance Use: Yes substance use type: crack/cocaine and heroin Last Used Substance Other:: ~ 2011 Review of Systems denies fever/cough/ colds/ chest pain/ SOB/ ALLIE denies ALLIE Physical Exam Vital Signs Last Vital Signs Temp 37.1 C 07/25/23 13:26 Pulse 92 H 07/25/23 13:26 Resp 20 07/25/23 13:26 BP 115/65 07/25/23 13:26 Pulse Ox 98 07/25/23 13:26 O2 Del Method Room Air 07/25/23 13:26 O2 Flow Rate 2 07/25/23 06:14 ENMT Mouth: no TMJ abnormality and no dentition abnormality Thyromental Distance: > or= 3.5 Finger Breadths Mallampati Class: II Neck neck extension not limited Respiratory normal respiratory effort; no respiratory distress Auscultation: lungs clear to auscultation bilaterally Cardiovascular Rate/Rhythm: regular rate and regular rhythm Neurologic moves all extremities Psychiatric Orientation: alert and oriented x 3 Testing Laboratory Results 07/25/23 07:30 07/25/23 07:30 PT 12.1 Seconds (9.0-12.0) H 07/22/23 17:05 INR 1.1 (0.9-1.1) 07/22/23 17:05 APTT 31 Seconds (21-31) 07/22/23 17:05 Hemoglobin A1c 9.7 % (4.5-5.6) H 07/23/23 05:18 Urine Color Yellow 07/23/23 Unknown Urine Appearance Cloudy (Clear) A 07/23/23 Unknown Urine pH 5.5 (4.5-7.5) 07/23/23 Unknown Ur Specific [place] 1.026 (1.000-1.030) 07/23/23 Unknown Urine Protein 1+ (Negative) H 07/23/23 Unknown Urine Glucose (UA) Trace (Negative) H 07/23/23 Unknown Urine Ketones Negative (Negative) 07/23/23 Unknown Urine Nitrite Positive (Negative) A 07/23/23 Unknown Ur Leukocyte Esterase 3+ (Negative) H 07/23/23 Unknown Urine WBC (Auto) >50 /hpf (0-5) H 07/23/23 Unknown Urine RBC (Auto) 0-2 /hpf (0-2) 07/23/23 Unknown U Hyaline Cast (Auto) 0-2 /lpf (0-2) 07/23/23 Unknown U Epithel Cells (Auto) 0-2 /hpf (0-2) 07/23/23 Unknown Urine Bacteria (Auto) None Seen (None Seen) 07/23/23 Unknown 07/23/23 Unknown Urine Culture - Final Urine,Clean Catch No growth - less than 1,000 colonies/mL. 07/22/23 17:05 Aerobic Blood Culture - Preliminary Blood Klebsiella pneumoniae Anaerobic Blood Culture - Preliminary No growth in Anaerobic bottle after 48 hours. 07/22/23 17:10 Aerobic Blood Culture - Preliminary Blood No growth in Aerobic bottle after 48 hours. Anaerobic Blood Culture - Preliminary No growth in Anaerobic bottle after 48 hours. 07/25/23 07/25/23 07/25/23 13:22 11:38 06:12 POC Glucose 162 H 171 H 151 H
[2023-07-25] MEDS ORDERED: ONDANSETRON INJ 2 MG/ML 2 ML VIAL IV PRN ×2 (15:03→17:47)
[2023-07-25] MEDS ORDERED: fentaNYL citrate PF 100 MCG/2 ML VIAL IV PRN (15:03)
[2023-07-25] MEDS: ceFAZolin 2000MG 2,000 MG/15 ML SYR IV ONE (15:45)
[2023-07-25] MEDS ORDERED: ceFAZolin 330 MG/ML 1 GM VIAL ONE (15:47)
[2023-07-25] MEDS ORDERED: ePHEDrine sulfate 50 MG/5 ML SYR ONE (16:09)
[2023-07-25] MEDS: BUPIVACAINE 0.5 % 5 MG/1 ML MPF 30ML VIAL ONE (16:48)
[2023-07-25] MEDS: LIDOCAINE 1% LOCAL 20 ML VIAL ONE (16:48)
--- NOTE | 2023-07-25 16:56 | Operative Report ---
Post Operative Report Pre & Post Diagnosis Operation Date: 07/25/23 13:30 Pre-Op Diagnosis: Diabetic ulcer of right great toe, Osteomyelitis Post-Op Diagnosis: Diabetic ulcer of right great toe, Osteomyelitis I identified the patient and participated in the time-out.: Yes Procedure Operation Date: 07/25/23 13:30 Actual Procedures p Right Great Toe Amputation(Right) - Reese Magallanes MD Surgeon Reese Magallanes M.D. Freelance Programmer/App Developer Aruna Man PA-C; no fellow or resident avail.; Michell Rangel MS Estimated Blood Loss 5 Findings Consistent with Post-Op Diagnosis Specimens Right great toe bone of distal phalanx Bone of proximal phalanx Anesthesia Type General Regional Description of Procedure Patient was taken to the operating room placed under general anesthesia. Given 2 g of IV Ancef for surgical prophylaxis. Time out was performed. Prepped and draped in routine sterile fashion. Is present during the entire case, please see Dr. Magallanes's operative report for further details regarding today's procedure. Patient was awakened and transferred recovery room in stable condition. I attest to the content of the Intraoperative Record and any orders documented therein. Any exceptions are noted below.
--- NOTE | 2023-07-25 16:57 | Fluoroscopy Report ---
FL toe RT 2V CLINICAL HISTORY: RIGHT GREAT TOE AMPUTATION COMPARISON STUDY: CT 07/22/2023 FLUOROSCOPY TIME: 1.4 seconds FLUOROSCOPY IMAGES: 1 EXPOSURE DOSE: 0.06 mGy FINDINGS: Status post amputation of the first digit at the level of the metatarsal phalangeal joint. Expected postoperative soft tissue swelling with deep tissue air. Cortical thickening of the third me tatarsal. No unexpected opaque foreign bodies. IMPRESSION: Fluoroscopic assistance as above. ACT 112: Negative or not required by law. Electronically signed by: John Galarza M.D. 07/25/2023 4:56 PM
--- NOTE | 2023-07-25 17:00 | Operative Report ---
Post Operative Report Pre & Post Diagnosis Operation Date: 07/25/23 13:30 Pre-Op Diagnosis: Diabetic ulcer of right great toe, Osteomyelitis, Probable ischemic necrosis Post-Op Diagnosis: Same I identified the patient and participated in the time-out.: Yes Procedure Operation Date: 07/25/23 13:30 Actual Procedures p Right Great Toe Amputation(Right) - Reese Magallanes MD Surgeon Reese Magallanes MD Medical Delivery Driver Aruna Man PA-C; no fellow or resident avail.; Paula Rangel MS Estimated Blood Loss 5 Findings Consistent with Post-Op Diagnosis Specimens Culture of the proximal and distal phalanx of the right big toe and the right big toe proximal distal phalanx for surgical specimen. Anesthesia Type General Regional Complications none Disposition Accompanied Patient To Recovery: No Disposition: Recovery Room Indications Patient is 62 years old. Chronic wound on the right foot big toe. Dry gangrene on the medial side of the toe with some scant purulent drainage. MRI shows no abscess but there is evidence of osteomyelitis of the proximal and distal phalanx. I have recommended an amputation and the patient agreed to proceed. Description of Procedure Informed consent. Patient identified. He identified the operative site as the right big toe. He was also consented for possible removal of the second toe if soft tissue coverage was necessary. It was marked as well. He received a preop dose of IV antibiotics. He was taken to the operating room positioned supine on the operating room table. The anesthetic was administered. A tourniquet was applied to the right calf below the fibular neck but not inflated during the case. The foot was scrubbed and then prepped and draped in the usual sterile fashion with Betadine. From the tip of the toe to its base on its medial side slightly more plantar than dorsal was black thick eschar and necrosis. Minimal swelling and erythema. Fluoroscopic guidance was utilized. Bony prominences inspected and padded. Pedal pulses were dopplerable preoperatively and he had documented ABIs of 0.9 in the right foot. I went ahead and made a longitudinal incision beginning at the distal third of the metatarsal and proceeded straight dorsally over the toe in the midline and then came around the tip proximally in the midline and then around the medial base of the toe and joint back up with the other flap. Full-thickness skin flaps were elevated proximally to expose the distal metatarsal and medial MTP joint. I elevated the medial skin flap off of the toe as a full-thickness flap. The MTP joint was transected and the toe was removed at that level. The MTP joint looked normal. The flexor and extensor tendons were resected and allowed to retract. The dorsal digital nerve was resected and allowed to retract. No purulence was noted. On the back table bone from the proximal and distal phalanx of the big toe was obtained and sent for culture. The toe itself was sent for surgical specimen. Copious irrigation was performed sterile saline. There was good bleeding proximally. Less so towards the distal flap. I was unable to reapproximate the proximal incision [id number] and then took the medial flap and folded laterally. Probably about half of this was amputated and shaped distally. And then a [id number] repair could be affected. Closure was done with horizontal mattress stitches and simple 3-0 nylon sutures. Meticulous hemostasis was achieved prior to wound closure. There were some areas between the stitches for drainage. I did not feel a drain was necessary. No purulence was encountered. The entire infected area had been removed. There appeared to be intact capillary refill within the flap. The leg was cleaned with wet and dry sponges and a saw sterile dressing was applied Xeroform 4 x 4's ABD fluffs between the toes and a postop shoe. Patient was taken to recovery room in stable condition. The specimens were as mentioned above. Counts were correct blood loss was 3 cc. At the conclusion the operation there was no one available to speak to. The patient is incarcerated. No complications. He may partial weight-bear on his heel. Continue IV antibiotics. Will monitor wound healing. I attest to the content of the Intraoperative Record and any orders documented therein. Any exceptions are noted below.
[2023-07-25] MEDS ORDERED: NALOXONE HCL 0.4 MG/1 ML VIAL/CARP IV PRN (17:47)
[2023-07-25] MEDS ORDERED: TAMSULOSIN HCL 0.4 MG CAP PO PRN (17:47)
[2023-07-25] MEDS: SODIUM CHLORIDE 0.9% 1,000 ML IV SCH (18:08)
--- NOTE | 2023-07-25 21:07 | Electrocardiogram Report ---
Test Reason : Blood Pressure : / mmHG Vent. Rate : 094 BPM Atrial Rate : 094 BPM P-R Int : 118 ms QRS Dur : 070 ms QT Int : 322 ms P-R-T Axes : 040 032 002 degrees QTc Int : 402 ms Normal sinus rhythm Normal ECG When compared with ECG of 13-APR-2019 12:49, No significant change was found Confirmed by Bud Lopes ([id number]) on 07/25/2023 9:06:53 PM Referred By: Olga BERMAN Confirmed By:Bud Lopes
[2023-07-26 06:24] LABS: Basophils # (auto) 0.02 K/uL (0.00-0.20); Basophils % (auto) 0.1 %; Hemoglobin 10.7 g/dl (14.0-18.0); Immature Granulocytes # (auto) 0.17 K/uL (0.01-0.20); Immature Granulocytes % (auto) 1.1 %; Lymphocytes # (auto) 1.52 K/uL (1.20-3.40); Lymphocytes % (auto) 9.4 %; Mean Corpuscular Hemoglobin 30.1 pg (25.0-34.0); Mean Corpuscular Hgb Conc 33.4 g/dL (32.0-36.0); Mean Corpuscular Volume 89.9 fL (80.0-100.0); Mean Platelet Volume 10.9 fL (9.4-12.4); Monocytes # (auto) 0.93 K/uL (0.11-0.59); Monocytes % (auto) 5.8 %; Neutrophils # (auto) 13.51 K/uL (1.40-6.50); Neutrophils % (auto) 83.6 %; Platelet Count 278 K/uL (130-400); RDW Coefficient of Variation 12.2 % (11.5-14.5); RDW Standard Deviation 40.6 fL (36.4-46.3); Red Blood Count 3.56 M/uL (4.70-6.10); White Blood Count 16.15 K/ul (4.8-10.8)
[2023-07-26 07:06] LABS: BUN Creatinine Ratio 21.8 (10-20); Calcium 8.5 mg/dl (8.6-10.3); Creatinine Clr Calc Pharmacy 73.5 ml/min; Est GFR (African American) 91.3 ml/min; Est GFR (Non-African American) 78.8 ml/min; Potassium 5.1 mmol/L (3.5-5.1)
[2023-07-26] MEDS: lisinopril 10 MG TAB PO SCH (07:57)
[2023-07-26] MEDS: LANTUS PER UNIT CHARGE SQ SCH ×2 (08:03→22:11)
[2023-07-26] MEDS ORDERED: lisinopril 20 MG TAB PO SCH (09:00)
--- NOTE | 2023-07-26 09:17 | Orthopedic Progress Note ---
Date of Service July 26, 2023 Assessment & Plan (1) Diabetic ulcer of right great toe: Plan: Patient is postop day 1 status post amputation of right great toe. He is doing well as expected. Recommend continuing with IV antibiotics x 72 hours Cultures were obtained results not available at time of rounding will continue to monitor Keep dressing in place, clean, and dry. Dressing will be changed on postop day 3 Continue with postop shoe in place May elevate right lower extremity on pillows if needed for comfort Continue with DVT prophylaxis, Lovenox per medicine team Continue with pain control per medicine team Patient will need to follow-up as an outpatient in office and this will be coordinated with the [facility] Admission and Anticipated Discharge Date Admission Date: July 22, 2023 Subjective Patient is a 62-year-old male who is seen bedside this morning. He is accompanied by 2 correctional officers. He is lying in bed alert and oriented. He is postop day 1 status post amputation of the right great toe secondary to diabetic ulcer and osteomyelitis. He is in good spirits does not appear to be in any distress. He states he is not having any pain at this time. He denies any fever, chills, chest pain or shortness of breath. He does report numbness in his toes however this is baseline for him. He does not offer any concerns. Review of Systems Review of Systems: Please refer to HPI please refer to HPI Physical Exam Physical Exam: General: Patient is alert and orient x 3 no acute distress. Integumentary/musculoskeletal: There is a postop shoe in place with dressing. The shoe was removed. Exposed toes second through 5 are intact normal in color and temperature. He is able to slightly wiggle toes. The dressing is intact without any soiling. His sensation is subjectively diminished over exposed toes per patient this is baseline. His capillary refills less than 2 seconds. Results & Data Vital Signs (Past 12 Hours) Vital Signs Temp Pulse Resp BP Pulse Ox O2 Del Method O2 Flow Rate 07/26/23 07:32 36.4 C L 85 18 163/81 H 96 Nasal Cannula 07/26/23 07:30 Room Air 07/26/23 03:48 36.5 C 92 H 16 156/86 H 94 Room Air 07/26/23 00:05 36.4 C L 76 17 138/83 96 Nasal Cannula 2 Laboratory Results 07/26/23 07/26/23 07/26/23 Range/Units 07:11 07:10 06:05 WBC 16.15 H (4.8-10.8) K/ul RBC 3.56 L (4.70-6.10) M/uL Hgb 10.7 L (14.0-18.0) g/dl Hct 32.0 L (42.0-52.0) % MCV 89.9 (80.0-100.0) fL MCH 30.1 (25.0-34.0) pg MCHC 33.4 (32.0-36.0) g/dL RDW Std Deviation 40.6 (36.4-46.3) fL RDW Coeff of Malachi 12.2 (11.5-14.5) % Plt Count 278 (130-400) K/uL MPV 10.9 (9.4-12.4) fL Immature Gran % (Auto) 1.1 % Neut % (Auto) 83.6 % Lymph % (Auto) 9.4 % [place] % (Auto) 5.8 % Eos % (Auto) 0.0 % Baso % (Auto) 0.1 % Neut # (Auto) 13.51 H (1.40-6.50) K/uL Lymph # (Auto) 1.52 (1.20-3.40) K/uL [place] # (Auto) 0.93 H (0.11-0.59) K/uL Eos # (Auto) 0.00 (0.00-0.50) K/uL Baso # (Auto) 0.02 (0.00-0.20) K/uL Immature Gran # (Auto) 0.17 (0.01-0.20) K/uL Sodium 131 L (136-145) mmol/L Potassium 5.1 D (3.5-5.1) mmol/L Chloride 100 (98-107) mmol/L Carbon Dioxide 21 (21-32) mmol/L Anion Gap 10 (3-11) BUN 22 (6-23) mg/dl Creatinine 1.01 (0.6-1.4) mg/dl Est Cr Clr Drug Dosing 73.5 ml/min Est GFR ( Amer) 91.3 ml/min Est GFR (Non-Af Amer) 78.8 ml/min BUN/Creatinine Ratio 21.8 H (10-20) Glucose 320 H* (70-99(Fasting)) mg/dl POC Glucose 282 H 303 H* (70-99) mg/dl Calcium 8.5 L (8.6-10.3) mg/dl 07/25/23 07/25/23 07/25/23 Range/Units 20:28 16:58 13:22 WBC (4.8-10.8) K/ul RBC (4.70-6.10) M/uL Hgb (14.0-18.0) g/dl Hct (42.0-52.0) % MCV (80.0-100.0) fL MCH (25.0-34.0) pg MCHC (32.0-36.0) g/dL RDW Std Deviation (36.4-46.3) fL RDW Coeff of Malachi (11.5-14.5) % Plt Count (130-400) K/uL MPV (9.4-12.4) fL Immature Gran % (Auto) % Neut % (Auto) % Lymph % (Auto) % [place] % (Auto) % Eos % (Auto) % Baso % (Auto) % Neut # (Auto) (1.40-6.50) K/uL Lymph # (Auto) (1.20-3.40) K/uL [place] # (Auto) (0.11-0.59) K/uL Eos # (Auto) (0.00-0.50) K/uL Baso # (Auto) (0.00-0.20) K/uL Immature Gran # (Auto) (0.01-0.20) K/uL Sodium (136-145) mmol/L Potassium (3.5-5.1) mmol/L Chloride (98-107) mmol/L Carbon Dioxide (21-32) mmol/L Anion Gap (3-11) BUN (6-23) mg/dl Creatinine (0.6-1.4) mg/dl Est Cr Clr Drug Dosing ml/min Est GFR ( Amer) ml/min Est GFR (Non-Af Amer) ml/min BUN/Creatinine Ratio (10-20) Glucose (70-99(Fasting)) mg/dl POC Glucose 249 H 147 H 162 H (70-99) mg/dl Calcium (8.6-10.3) mg/dl 07/25/23 Range/Units 11:38 WBC (4.8-10.8) K/ul RBC (4.70-6.10) M/uL Hgb (14.0-18.0) g/dl Hct (42.0-52.0) % MCV (80.0-100.0) fL MCH (25.0-34.0) pg MCHC (32.0-36.0) g/dL RDW Std Deviation (36.4-46.3) fL RDW Coeff of Malachi (11.5-14.5) % Plt Count (130-400) K/uL MPV (9.4-12.4) fL Immature Gran % (Auto) % Neut % (Auto) % Lymph % (Auto) % [place] % (Auto) % Eos % (Auto) % Baso % (Auto) % Neut # (Auto) (1.40-6.50) K/uL Lymph # (Auto) (1.20-3.40) K/uL [place] # (Auto) (0.11-0.59) K/uL Eos # (Auto) (0.00-0.50) K/uL Baso # (Auto) (0.00-0.20) K/uL Immature Gran # (Auto) (0.01-0.20) K/uL Sodium (136-145) mmol/L Potassium (3.5-5.1) mmol/L Chloride (98-107) mmol/L Carbon Dioxide (21-32) mmol/L Anion Gap (3-11) BUN (6-23) mg/dl Creatinine (0.6-1.4) mg/dl Est Cr Clr Drug Dosing ml/min Est GFR ( Amer) ml/min Est GFR (Non-Af Amer) ml/min BUN/Creatinine Ratio (10-20) Glucose (70-99(Fasting)) mg/dl POC Glucose 171 H (70-99) mg/dl Calcium (8.6-10.3) mg/dl Microbiology 07/25/23 07:36 Aerobic Blood Culture - Preliminary Blood No growth in Aerobic bottle after 24 hours. Anaerobic Blood Culture - Preliminary No growth in Anaerobic bottle after 24 hours. 07/25/23 07:30 Aerobic Blood Culture - Preliminary Blood No growth in Aerobic bottle after 24 hours. Anaerobic Blood Culture - Preliminary No growth in Anaerobic bottle after 24 hours. 07/25/23 16:31 Gram Stain - Final Toe,Right Great 07/25/23 16:31 Gram Stain - Final Toe,Right Great 07/23/23 Unknown Urine Culture - Final Urine,Clean Catch No growth - less than 1,000 colonies/mL. 07/22/23 17:05 Aerobic Blood Culture - Preliminary Blood Klebsiella pneumoniae Anaerobic Blood Culture - Preliminary No growth in Anaerobic bottle after 48 hours.
--- NOTE | 2023-07-26 09:51 | Pharmacy Report ---
Pharmacy Glycemic Short Note 2 - Date of Service July 26, 2023 - Glycemic Short BSG Results (Last 24 hours): 07/25/23 07/25/23 07/25/23 11:38 13:22 16:58 Glucose POC Glucose 171 H 162 H 147 H 07/25/23 07/26/23 07/26/23 20:28 06:05 07:10 Glucose 320 H* POC Glucose 249 H 303 H* 07/26/23 07:11 Glucose POC Glucose 282 H OUTPATIENT ANTIDIABETIC REGIMEN: * Insulin glargine 10 units SC daily * Metformin 850 mg PO BIDM HbA1c: 9.7% (07/23/23) ASSESSMENT: 07/26/23: * POD #1 s/p right great toe amputation - received 8 mg IV dexamethasone in OR * Blood sugars trended up throughout the day and into this morning, likely related to steroid administration and no additional insulin coverage * Will tighten parameters this morning and give increased basal dose * Will loosen again at lunch as effects from steroid dissipate 07/24/23: * Blood sugars improved throughout the day yesterday * Received 35 units of insulin (15 units of basal and 20 units of prandial/correctional bolus) * No changes anticipated to regimen today 07/23/23: * J CARLOS is a 62 year old male presents [facility] ED [facility] local [facility] with fever and worsening diabetic foot infection of right great toe * Initial insulin orders last evening refused by patient * Blood sugars elevated this morning. Unsurprising, given HbA1c and insulin refusal last evening. * No changes to currently ordered regimen * Broad spectrum antibiotic regimen ordered in form of daptomycin and cefepime * Diet ordered at this time PLAN FOR INPATIENT GLYCEMIC CONTROL: * Hold outpatient oral diabetes medications * Basal insulin * Lantus 15 units SC x 1 this morning * Lantus 0-5-10 units SC HS (see EHR for details) * Bolus insulin * NovoLog per scale ACHS or Q6hrs while NPO * Goal Range: Low 110 mg/dL - High 140 mg/dL * Correction Factor: 20 mg/dL/unit * Nutritional / Prandial insulin per carb ratio of 1 unit per 6 grams CHO consumed
--- NOTE | 2023-07-26 13:56 | Hospitalist Progress Note ---
Date of Service July 26, 2023 Assessment & Plan (1) Diabetic ulcer of right great toe: (2) HIV (human immunodeficiency virus infection): (3) Hepatitis C: (4) Tobacco abuse: (5) Seizure disorder: Plan Sepsis POA Acute osteomyelitis of great toe status post right great toe amputation on 07/24/2021 Klebsiella pneumonia bacteremia 62-year-old male with history of HIV, hep C, diabetes, seizure disorder sent [facility] for fever chills on background of right toe infection. Diabetic right toe infection-being treated at [facility] but developed fever and chills and send to ED. Foot MRI; great toe ulceration/infection, positive for osteomyelitis. Blood culture1/4 positive for Klebsiella pneumoniae Urine cultureno growth Duplex lower extremitynone diagnosis ankle brachial index. Patent vessel within right lower extremity. Repeat blood cultureno growth in 24 hours IntraOp culture- Staphylococcus species, group B beta strep Change cefepime to ceftriaxone. Continue on daptomycin to cover for osteomyelitis. Will need 10 to 14 days of antibiotic for bacteremia. Orthopedics recommends 72 hours of antibiotics postoperatively as source control has been achieved. Infectious disease consulted to give recommendation regarding antibiotic choice, route and duration. Hypertensionwill start on nifedipine 60 mg. Lisinopril increased to 10 mg once a day HIV-continue home meds Seizure disorder-on Keppra, continue Diabetes type 2 with peripheral neuropathy-continue insulin, adjust as indicated. Continue gabapentin. Pharmacy on board History of asthma Patient reports he has a history of asthma and smoking Exacerbation As needed nebs, albuterol Hypomagnesemia-repleted, recheck in am Mood disorder- on zofoft, zyprexa DVT prophylaxis-subcu Lovenox Disposition-patient hospitalized for acute osteomyelitis of great toe and bacteremia. . ID evaluation pending Full code Time spent evaluating patient, direct bedside care, chart review, placing orders, interpretation of diagnostic studies, discussion with consultants, pat ient, and family members, as well as other required patient management activities is 50 minutes Please note the above document was generated using voice recognition software. It may contain grammatical, syntax or spelling errors. Any formal questions or concerns about the content, text or information contained within the body of this dictation should be directly addressed to the provider for clarification Admission and Anticipated Discharge Date Admission Date: July 22, 2023 Subjective Patient seen and examined at bedside. Comfortable; not in distress. Denies fever, chills, chest pain, shortness of breath, abdominal pain or urinary symptoms. No significant overnight events Review of Systems Review of Systems: All systems reviewed & are unremarkable except as noted in Subjective Physical Exam Physical Exam: General- oriented x 3, not in distress, speaks in sentences with no effort or accessory muscle use Eyes- anicteric Neck- no JVD Lungs- clear breath sounds bilaterally, no rales/wheezes Heart- normal rate, regular rhythm; no murmurs Abdomen- normal bowel sounds, nondistended, soft, nontender Extremities- no pretibial edema, no calf tenderness. dressings in place in right foot. Neuro- alert, oriented x 3; no gross focal neurologic deficits Skin- warm & dry Results & Data Results & Data Vital Signs (Past 12 Hours) Vital Signs Temp Pulse Resp BP Pulse Ox O2 Del Method 07/26/23 07:32 36.4 C L 85 18 163/81 H 96 Nasal Cannula 07/26/23 07:30 Room Air 07/26/23 03:48 36.5 C 92 H 16 156/86 H 94 Room Air
--- NOTE | 2023-07-26 15:41 | Infectious Disease Consult ---
Date of Service July 26, 2023 Telehealth Information I performed this visit using a real-time telehealth connection between my location and the patients location ([facility]). After connecting through interactive tele-video, patient was identified by name and date of and/or wristband check.Patient (or authorized healthcare underwriting account representative) was informed that this was a telemedicine visit and it was being conducted confidentially over secure lines. My office door was closed and no on e else was present in the room with me.Patient (or authorized healthcare underwriting account representative) provided consent to proceed with the visit, expressed an understanding of privacy and security of the telemedicine visit, and gave permission to have a hospital underwriting account representative in the room in order to assist with the visit and to conduct portions of the visit, as needed. I informed the patient (or authorized healthcare underwriting account representative) that I reviewed their record and presented the opportunity for them to ask any questions regarding the visit today. The patient agreed to participate. Assessment & Plan (1) Osteomyelitis: Plan 62-year-old male with a past medical history of type 2 diabetes mellitus / peripheral neuropathy on insulin presenting for right 1st great toe ulcer. Although he has been seen by [facility] the foot wound had increased discomfort and he was experiencing fever/chills. He is now s/p right 1st great toe amputation with bone cultures growing Staphylococcus species/ group B beta strep. Furthermore on initial evaluation blood cultures grew Klebsiella pneumoniae. We will treat osteomyelitis for a total of 6 weeks with IV antibiotics to include organisms not only on bone culture but also consideration of what was found in the blood. First great toe osteomyelitis s/p amputation, Staphylococcus species/group B beta strep/presumed Klebsiella pneumoniae Klebsiella pneumonia bacteremia history of type 2 diabetes mellitus plan: -Please place PICC line (CrCl 73.5, sCr 1.01) -ceftriaxone 2 g IV q.day for a total of 6 weeks from 07/26/23 through 09/06/23 -daptomycin 750mg (about 8mg/kg) Q24 for a total of 6 weeks from 07/26/23 through 09/06/23 -CBC with differential, CMP, CK weekly lab draw through 09/06/2023 -CRP Q 2 weeks through 09/06/2023 -patient will require ID follow-up in 5 weeks -please feel free to reach out with any further questions or concerns, ID will sign off at this time case discussed with ID attending Dr. Campbell Hernandez MD Infectious Disease PGY-4 [facility] History of Present Illness History of Present Illness Pmhx: HIV (on Dovato), hep C, diabetes, seizure disorder sent from [facility] for fever chills on background of right toe infection patient presenting due to fever and chills in setting of right great toe ulcer. Patient was now s/p OR with Orthopedic Surgery on 07/24 have TMA resection of the right 1st toe. Blood cultures on presentation 07/21 growing Klebsiella pneumoniae ( resistant to Unasyn/cefazolin/Bactrim, intermediate to Augmentin). 07/24 bone culture from right great toe showing GPC on stain. Infectious disease consulted for antimicrobial recommendations in setting of 1st great toe osteomyelitis. patient was last febrile episode on 07/22 to 38 C, currently afebrile. patient was stating that he feels better, pain in the foot has improve d since surgery which he states he tolerated well. Antimicrobials: Cefepime 07/22- daptomycin 07/23-P ceftriaxone 07/25-P Allergies Allergy/AdvReac Type Severity Reaction Status Date / Time No Known Allergies Allergy Unverified 07/01/23 07:55 Home Medications Medication Instructions Recorded Confirmed Type lactulose 10 gram/15 mL (15 mL) 20 g PO QID PRN . 04/13/19 07/22/23 History oral solution sertraline 50 mg tablet 150 mg PO QAM 04/13/19 07/22/23 History dolutegravir 50 mg-lamivudine 300 1 tab PO DAILY 05/10/22 07/22/23 History mg tablet (Dovato) insulin glargine 100 unit/mL 10 unit subcut DAILY 05/10/22 07/22/23 History subcutaneous cartridge insulin regular human 100 unit/mL 1 sliding scale dose subcut 05/10/22 07/22/23 History injection solution (Novolin R USEASDIRECTD Regular U-100 Insulin) rosuvastatin 5 mg tablet 5 mg PO DAILY 05/10/22 07/22/23 History vancomycin 1 gram/200 mL in 0.9 % 1 g IV Q12H 07/01/23 07/22/23 History sod. chloride intravenous piggyback gabapentin 600 mg tablet 1,800 mg PO TID 07/22/23 07/22/23 History levetiracetam 1,000 mg tablet 1,000 mg PO BID 07/22/23 07/22/23 History (Kecherry) levetiracetam 500 mg tablet 500 mg PO BID 07/22/23 07/22/23 History lisinopril 2.5 mg tablet 2.5 mg PO DAILY 07/22/23 07/22/23 History metformin 850 mg tablet 850 mg PO BID 07/22/23 07/22/23 History olanzapine 15 mg tablet 15 mg PO HS 07/22/23 07/22/23 History Patient History Medical History Mass of soft tissue of neck Esophageal thickening Pulmonary nodule Hepatitis C Peripheral neuropathy HIV (human immunodeficiency virus infection) Surgical History S/P cholecystectomy Family History Mother Diabetes Sister Seizure Other No significant family history Social History Smoking Status: Current every day smoker Tobacco Type: Cigars and E-cigarettes / Vaping Hx Alcohol Use: No Hx Substance Use: Yes Last Used Substance Other:: ~ 2011 Preferred Language: Dutch Communication Ability: Effective 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 Beliefs That Will Affect Care: None Current Living Situation: Other Current Living Situation Comment: [facility] 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 Feels Safe at Home: Yes Safety Concerns: Feels Safe At This Time Assistive Devices: None Review of Systems Constitutional: No further fever/chills HENT: No ear pain/drainage, sinus infections, hearing loss Cardiovascular: No chest pain, palpitations, lower extremity swelling Respiratory: No shortness of breath, wheezing/cough Gastrointestinal: no pain/diarrhea MSK: Pain in right foot well controlled Skin: No rash, lesions Neurological: No dizziness, weakness, confusion, sensory changes Physical Exam telemedicine consult, no physical exam Results & Data Vital Signs (Past 12 Hours) Vital Signs Temp Pulse Resp BP Pulse Ox O2 Del Method 07/26/23 07:32 36.4 C L 85 18 163/81 H 96 Nasal Cannula 07/26/23 07:30 Room Air 07/26/23 03:48 36.5 C 92 H 16 156/86 H 94 Room Air Laboratory Results 07/24 right great toe distal phalanx culture: Staphylococcus species/group B beta strep 07/24 right great toe proximal phalanx culture: Staphylococcus species/group B beta strep 07/24 blood culture: No growth to date 07/21 blood culture: Klebsiella pneumoniae 07/22 urine culture: No growth less than 1000 copies per mL Diagnostic Findings MRI right foot 07/23: IMPRESSION: Great toe ulceration/infection. No fluid collection or abscess. Positive for osteomyelitis of the great toe proximal and distal phalanx
[2023-07-26] MEDS: LEVALBUTEROL 1.25 MG/3 ML NEB ONE (16:13)
[2023-07-26] MEDS: cefTRIAXone SODIUM 2,000 MG in DEXTROSE 5 % MINI-B 50 ML IV SCH (21:22)
[2023-07-26] MEDS: MoRPHine SULFATE 2 MG/ML CARP IV STA (22:02)
[2023-07-26] MEDS: OPTIRAY 320 125ml IV ONE (22:51)
--- NOTE | 2023-07-26 23:23 | CT Scan Report ---
Exam(s): CTA CHEST IV Amt: 118 ml opti 320 EXAM: CT Angiography Chest With Intravenous Contrast CLINICAL HISTORY: Reason for exam: PE. TECHNIQUE: Axial computed tomographic angiography images of the chest with intravenous contrast. CTDI is 27.63 mGy and DLP is 857.53 mGy-cm. Automated exposure control was utilized for the study. A dose lowering technique was utilized adhering to the principles of ALARA. MIP reconstructed images were created and reviewed. COMPARISON: No relevant prior studies available. FINDINGS: Pulmonary arteries: Unremarkable. No pulmonary embolism. Aorta: No acute findings. No thoracic aortic aneurysm. Lungs: Mild scattered patchy areas of infiltration, predominantly in the upper lobes. The largest is near the left lung apex. Bands of atelectasis are seen within the right middle lobe and right lower lobe. No mass. Pleural space: Unremarkable. No significant effusion. No pneumothorax. Heart: Unremarkable. No cardiomegaly. No significant pericardial effusion. No evidence of RV dysfunction. Bones/joints: No acute fracture. No dislocation. Soft tissues: Unremarkable. Lymph nodes: Unremarkable. No enlarged lymph nodes. Kidneys and ureters: Mild right perinephric stranding and fluid. IMPRESSION: No evidence of pulmonary emboli. Numerous small patchy areas of scattered infiltration bilaterally. Incompletely seen mild perinephric stranding/fluid on the right. Electronically signed by: Chencho Tuttle MD 07/26/23 23:23 PM
[2023-07-27] MEDS: LEVALBUTEROL 1.25 MG/3 ML NEB ONE (05:47)
[2023-07-27 06:12] LABS: Basophils # (auto) 0.05 K/uL (0.00-0.20); Basophils % (auto) 0.4 %; Eosinophils # (auto) 0.21 K/uL (0.00-0.50); Eosinophils % (auto) 1.6 %; Hematocrit (blood only) 33.8 % (42.0-52.0); Hemoglobin 11.6 g/dl (14.0-18.0); Immature Granulocytes # (auto) 0.17 K/uL (0.01-0.20); Immature Granulocytes % (auto) 1.3 %; Lymphocytes # (auto) 2.52 K/uL (1.20-3.40); Lymphocytes % (auto) 19.6 %; Mean Corpuscular Hemoglobin 30.2 pg (25.0-34.0); Mean Corpuscular Hgb Conc 34.3 g/dL (32.0-36.0); Mean Platelet Volume 10.9 fL (9.4-12.4); Monocytes # (auto) 1.18 K/uL (0.11-0.59); Monocytes % (auto) 9.2 %; Neutrophils % (auto) 67.9 %; Platelet Count 292 K/uL (130-400); RDW Coefficient of Variation 12.6 % (11.5-14.5); RDW Standard Deviation 40.4 fL (36.4-46.3); Red Blood Count 3.84 M/uL (4.70-6.10); White Blood Count 12.83 K/ul (4.8-10.8)
[2023-07-27 06:33] LABS: BUN Creatinine Ratio 17.5 (10-20); Calcium 8.6 mg/dl (8.6-10.3); Creatinine Clr Calc Pharmacy 65.1 ml/min; Est GFR (African American) 78.9 ml/min; Est GFR (Non-African American) 68.1 ml/min; Potassium 4.4 mmol/L (3.5-5.1)
[2023-07-27 07:38] LABS: Troponin I High Sensitivity 9.7 pg/ml (0-20)
[2023-07-27] MEDS: LANTUS PER UNIT CHARGE SQ SCH ×2 (09:13→21:01)
[2023-07-27] MEDS: lisinopril 10 MG TAB PO SCH (09:17)
[2023-07-27] MEDS: ALBUT/IPRATROP 3MG/0.5MG NEB 3 ML VIAL NEB SCH (11:32)
[2023-07-27] MEDS: SODIUM CHLOR 7% 4 ML NEB NEB SCH (11:32)
[2023-07-27] MEDS: AZITHROMYCIN 250 MG TAB PO SCH (11:55)
[2023-07-27] MEDS: PIPER/TAZO 4.5g in D5W MINI-B 100 ML IV ONE (11:55)
--- NOTE | 2023-07-27 12:11 | Electrocardiogram Report ---
Test Reason : Blood Pressure : / mmHG Vent. Rate : 101 BPM Atrial Rate : 101 BPM P-R Int : 128 ms QRS Dur : 078 ms QT Int : 338 ms P-R-T Axes : 066 042 043 degrees QTc Int : 438 ms Sinus tachycardia Otherwise normal ECG When compared with ECG of 22-JUL-2023 16:56, Nonspecific T wave abnormality has replaced inverted T waves in Inferior leads Confirmed by Donavan Ross ([id number]) on 07/27/2023 12:11:11 PM Referred By: Olga BERMAN Confirmed By:Donavan Ross
[2023-07-27 13:09] LABS: Adenovirus PCR Not Detected (NotDetected); Bordetella parapertussis PCR Not Detected (NotDetected); Bordetella pertussis PCR Not Detected (NotDetected); Chlamydia pneumoniae PCR Not Detected (NotDetected); Coronavirus 229E PCR Not Detected (NotDetected); Coronavirus CoV-2 (COVID19)PCR Not Detected (NotDetected); Coronavirus HKU1 PCR Not Detected (NotDetected); Coronavirus NL63 PCR Not Detected (NotDetected); Coronavirus OC43PCR Not Detected (NotDetected); Human Metapneumovirus PCR Not Detected (NotDetected); Influenza A PCR Not Detected (NotDetected); Influenza B PCR Not Detected (NotDetected); Mycoplasma pneumoniae PCR Not Detected (NotDetected); Parainfluenza Virus 1 PCR Not Detected (NotDetected); Parainfluenza Virus 2 PCR Not Detected (NotDetected); Parainfluenza Virus 3 PCR Not Detected (NotDetected); Parainfluenza Virus 4 PCR Not Detected (NotDetected); Respiratory Syncytial VirusPCR Not Detected (NotDetected)
[2023-07-27 13:11] LABS: Rhinovirus/Enterovirus PCR DETECTED (NotDetected)
--- NOTE | 2023-07-27 13:21 | Hospitalist Progress Note ---
Date of Service July 27, 2023 Assessment & Plan (1) Diabetic ulcer of right great toe: (2) HIV (human immunodeficiency virus infection): (3) Hepatitis C: (4) Tobacco abuse: (5) Seizure disorder: Plan Sepsis POA Acute osteomyelitis of great toe status post right great toe amputation on 07/24/2021 Klebsiella pneumonia bacteremia 62-year-old male with history of HIV, hep C, diabetes, seizure disorder [facility] for fever chills on background of right toe infection. Diabetic right toe infection-being treated at [facility] but developed fever and chills and send to ED. Foot MRI; great toe ulceration/infection, positive for osteomyelitis. Blood culture1/4 positive for Klebsiella pneumoniae Urine cultureno growth Duplex lower extremitynone diagnosis ankle brachial index. Patent vessel within right lower extremity. Repeat blood cultureno growth in 24 hours IntraOp culture- Staphylococcus species, group B beta strep Continue on daptomycin to cover for osteomyelitis. ID recommends ceftriaxone 2 g IV and daptomycin 750 mg for total of 6 weeks through September 06, 2023 PICC line consent taken at bedside. Will need to CBC, CMP and CK weekly Also will need ID follow-up in 5 weeks Rhinovirus infection Possible pneumonia secondary to rhinovirus Patient reports cough, sore throat. Respiratory viral panel positive for rhinovirus CTA chest shows patchy infiltrates bilaterally Continue on Zosyn for the time being for pneumonia. Droplet isolation Hypertensionstarted on nifedipine 60 mg. Lisinopril increased to 10 mg once a day HIV-continue home meds Seizure disorder-on Keppra, continue Diabetes type 2 with peripheral neuropathy-continue insulin, adjust as indicated. Continue gabapentin. Pharmacy on board History of asthma Patient reports he has a history of asthma and smoking Exacerbation As needed nebs, albuterol Hypomagnesemia-repleted, recheck in am Mood disorder- on zofoft, zyprexa DVT prophylaxis-subcu Lovenox Disposition-patient hospitalized for acute osteomyelitis of great toe and bacteremia. PICC line Placed. IV antibiotics needs to be arranged prior to discharge to [facility] Full code Time spent evaluating patient, direct bedside care, chart review, placing ord ers, interpretation of diagnostic studies, discussion with consultants, patient, and family members, as well as other required patient management activities is 50 minutes Please note the above document was generated using voice recognition software. It may contain grammatical, syntax or spelling errors. Any formal questions or concerns about the content, text or information contained within the body of this dictation should be directly addressed to the provider for clarification Admission and Anticipated Discharge Date Admission Date: July 22, 2023 Subjective Overnight, patient had cough which was nonproductive. CTA chest revealed possible pneumonia bilaterally. Review of Systems Review of Systems: All systems reviewed & are unremarkable except as noted in Subjective Physical Exam Physical Exam: General- oriented x 3, not in distress, speaks in sentences with no effort or accessory muscle use Eyes- anicteric Neck- no JVD Lungs-occasional crackles heard Heart- normal rate, regular rhythm; no murmurs Abdomen- normal bowel sounds, nondistended, soft, nontender Extremities- no pretibial edema, no calf tenderness. dressings in place in right foot. Neuro- alert, oriented x 3; no gross focal neurologic deficits Skin- warm & dry Results & Data Results & Data Vital Signs (Past 12 Hours) Vital Signs Temp Pulse Resp BP Pulse Ox O2 Del Method 07/27/23 07:51 36.8 C 96 H 18 142/75 H 92 Room Air 07/27/23 07:45 Room Air 07/27/23 05:48 18 Room Air
[2023-07-27] MEDS: PIPERACILLIN/TAZOBACTAM 4.5 GM in DEXTROSE 5% MINI-B 100 ML IV SCH (16:44)
[2023-07-28] MEDS: LEVALBUTEROL 1.25 MG/3 ML NEB ONE (00:25)
[2023-07-28] MEDS: LEVALBUTEROL 1.25MG/0.5ML NEB NEB PRN (04:35)
[2023-07-28] MEDS: methylPREDNISolone 125 MG/2 ML VIAL IV STA ×2 (04:37→04:56)
[2023-07-28 06:31] LABS: Basophils # (auto) 0.07 K/uL (0.00-0.20); Basophils % (auto) 0.7 %; Eosinophils # (auto) 0.24 K/uL (0.00-0.50); Eosinophils % (auto) 2.4 %; Hematocrit (blood only) 31.5 % (42.0-52.0); Hemoglobin 10.4 g/dl (14.0-18.0); Immature Granulocytes % (auto) 3.1 %; Lymphocytes # (auto) 1.76 K/uL (1.20-3.40); Lymphocytes % (auto) 17.9 %; Mean Corpuscular Hemoglobin 29.5 pg (25.0-34.0); Mean Corpuscular Volume 89.5 fL (80.0-100.0); Mean Platelet Volume 11.4 fL (9.4-12.4); Monocytes # (auto) 0.99 K/uL (0.11-0.59); Monocytes % (auto) 10.1 %; Neutrophils # (auto) 6.46 K/uL (1.40-6.50); Neutrophils % (auto) 65.8 %; Platelet Count 276 K/uL (130-400); RDW Coefficient of Variation 12.8 % (11.5-14.5); RDW Standard Deviation 41.7 fL (36.4-46.3); Red Blood Count 3.52 M/uL (4.70-6.10); White Blood Count 9.82 K/ul (4.8-10.8)
[2023-07-28 06:49] LABS: BUN Creatinine Ratio 15.7 (10-20); Calcium 8.7 mg/dl (8.6-10.3); Creatinine Clr Calc Pharmacy 68.5 ml/min; Est GFR (African American) 84.2 ml/min; Est GFR (Non-African American) 72.7 ml/min; Potassium 4.2 mmol/L (3.5-5.1)
[2023-07-28] MEDS: LANTUS PER UNIT CHARGE SQ SCH ×2 (08:41→21:00)
--- NOTE | 2023-07-28 10:19 | Orthopedic Progress Note ---
Date of Service July 28, 2023 Assessment & Plan (1) Osteomyelitis: (2) Diabetic ulcer of right great toe: Plan: Bear weight on the heel. Continue IV antibiotics. Elevate. Follow-up on pathology. On Lovenox for DVT prophylaxis. At this time the surgical repair looks viable. Will need to continue to offloading. Discussed with patient the results of surgical procedure. Admission and Anticipated Discharge Date Admission Date: July 22, 2023 Subjective No problems reported. Pain well-controlled. Physical Exam Physical Exam: Dressing changed. Swelling minimal. Erythema minimal. No fluctuance or significant drainage under the flap. The soft tissue coverage is viable with mild swelling and pinkness. Blanches with capillary refill less than 2 seconds. New dressing applied. Results & Data Vital Signs (Past 12 Hours) Vital Signs Temp Pulse Resp BP Pulse Ox O2 Del Method O2 Flow Rate 07/28/23 09:59 102 H 20 94 Nasal Cannula 1 07/28/23 08:00 Room Air 07/28/23 07:52 37.0 C 108 H 18 134/77 90 Room Air 07/28/23 06:55 65 20 93 Nasal Cannula 2 07/28/23 04:51 37.4 C 97 H 16 146/76 H 94 Nasal Cannula 2 07/28/23 04:40 100 H 24 94 Nasal Cannula 2 07/28/23 04:18 120 H 91 Nasal Cannula 2 07/28/23 04:17 36.9 C 115 H 18 163/81 H 86 L Room Air 07/28/23 00:39 103 H 94 Room Air 07/28/23 00:25 106 H 20 92 Room Air Laboratory Results CBC and PRP today noted.
[2023-07-28] MEDS: INSULIN HUMAN REGULAR PER UNIT 7 UNITS in SYRINGE 6.93 ML IV ONE (12:53)
--- NOTE | 2023-07-28 13:37 | Hospitalist Progress Note ---
Date of Service July 28, 2023 Assessment & Plan (1) Diabetic ulcer of right great toe: (2) HIV (human immunodeficiency virus infection): (3) Hepatitis C: (4) Tobacco abuse: (5) Seizure disorder: Plan Sepsis POA Acute osteomyelitis of great toe status post right great toe amputation on 07/24/2021 Klebsiella pneumonia bacteremia 62-year-old male with history of HIV, hep C, diabetes, seizure disorder [facility] for fever chills on background of right toe infection. Diabetic right toe infection-being treated at [facility] but developed fever and chills and send to ED. Foot MRI; great toe ulceration/infection, positive for osteomyelitis. Blood culture1/4 positive for Klebsiella pneumoniae Urine cultureno growth Duplex lower extremitynone diagnosis ankle brachial index. Patent vessel within right lower extremity. Repeat blood cultureno growth in 48 hours IntraOp culture- Staphylococcus species, group B beta strep Continue on daptomycin to cover for osteomyelitis. ID recommends ceftriaxone 2 g IV and daptomycin 750 mg for total of 6 weeks through September 06, 2023 PICC line consent taken at bedside. Will need to CBC, CMP and CK weekly Also will need ID follow-up in 5 weeks Rhinovirus infection Possible pneumonia secondary to rhinovirus Patient reports cough, sore throat. Respiratory viral panel positive for rhinovirus CTA chest shows patchy infiltrates bilaterally Continue on Zosyn for the time being for pneumonia. Droplet isolation Airway clearance therapy Hypertensionstarted on nifedipine 60 mg. Lisinopril increased to 10 mg once a day HIV-continue home meds Seizure disorder-on Keppra, continue Diabetes type 2 with peripheral neuropathy-continue insulin, adjust as indicated. Continue gabapentin. Pharmacy on board History of asthma Patient reports he has a history of asthma and smoking Exacerbation As needed nebs, albuterol Hypomagnesemia-repleted, recheck in am Mood disorder- on zofoft, zyprexa DVT prophylaxis-subcu Lovenox Disposition-patient hospitalized for acute osteomyelitis of great toe and bacteremia. PICC line Placed. IV antibiotics needs to be arranged prior to discharge to [facility] Full code Time spent evaluating patient, direct bedside care, chart review, placing orders, interpretation of diagnostic studies, discussion with consultants, patient, and family members, as well as other required patient management activities is 50 minutes Please note the above document was generated using voice recognition software. It may contain grammatical, syntax or spelling errors. Any formal questions or concerns about the content, text or information contained within the body of this dictation should be directly addressed to the provider for clarification Admission and Anticipated Discharge Date Admission Date: July 22, 2023 Subjective Patient seen and examined at bedside. He reports that he is feeling better compared to yesterday. He reports improved energy and less fatigue. No history of fever overnight Review of Systems Review of Systems: All systems reviewed & are unremarkable except as noted in Subjective Physical Exam Physical Exam: General- oriented x 3, not in distress, speaks in sentences with no effort or accessory muscle use Eyes- anicteric Neck- no JVD Lungs-occasional crackles heard Heart- normal rate, regular rhythm; no murmurs Abdomen- normal bowel sounds, nondistended, soft, nontender Extremities- no pretibial edema, no calf tenderness. dressings in place in right foot. Neuro- alert, oriented x 3; no gross focal neurologic deficits Skin- warm & dry Results & Data Results & Data Vital Signs (Past 12 Hours) Vital Signs Temp Pulse Resp BP Pulse Ox O2 Del Method O2 Flow Rate 07/28/23 11:23 96 H 16 91 Room Air 07/28/23 09:59 102 H 20 94 Nasal Cannula 1 07/28/23 08:00 Room Air 07/28/23 07:52 37.0 C 108 H 18 134/77 90 Room Air 07/28/23 06:55 65 20 93 Nasal Cannula 2 07/28/23 04:51 37.4 C 97 H 16 146/76 H 94 Nasal Cannula 2 07/28/23 04:40 100 H 24 94 Nasal Cannula 2 07/28/23 04:18 120 H 91 Nasal Cannula 2 07/28/23 04:17 36.9 C 115 H 18 163/81 H 86 L Room Air
--- NOTE | 2023-07-28 13:50 | Pharmacy Report ---
Pharmacy Glycemic Short Note 2 - Date of Service July 28, 2023 - Glycemic Short BSG Results (Last 24 hours): 07/27/23 07/27/23 07/28/23 16:28 20:41 05:58 Glucose 260 H POC Glucose 188 H 262 H 07/28/23 07/28/23 07/28/23 07:50 11:28 11:30 Glucose POC Glucose 290 H 370 H* 410 H* OUTPATIENT ANTIDIABETIC REGIMEN: * Insulin glargine 10 units SC daily * Metformin 850 mg PO BIDM HbA1c: 9.7% (07/23/23) ASSESSMENT: 07/28/23: * Td received 66 units of SQ insulin yesterday with BSGs 208, 164, 188, 262 mg/dL * On 07/26, basal insulin was slightly decreased based on drastic reduction in fasting over the previous 24 hours (282 -> 208 mg/dL). Fasting BSG very elevated today, 290 mg/dL. Patient was given a dose of methylprednisolone 60 mg IV early this morning which is likely the cause. Will increase basal insulin and give full 24 hour dose in AM. Will continue basal HS dose per scale this evening due to acute severe hyperglycemia but suspect we can d/c that after today. * Post prandial BSG elevation also likely due to methylprednisolone. Ordered an 7 unit IV regular insulin bolus to be given with lunch aspart. Tighten carb coverage. Suspect improvement throughout the day given no ongoing sterids. 07/26/23: * POD #1 s/p right great toe amputation - received 8 mg IV dexamethasone in OR * Blood sugars trended up throughout the day and into this morning, likely related to steroid administration and no additional insulin coverage * Will tighten parameters this morning and give increased basal dose * Will loosen again at lunch as effects from steroid dissipate 07/24/23: * Blood sugars improved throughout the day yesterday * Received 35 units of insulin (15 units of basal and 20 units of prandial/correctional bolus) * No changes anticipated to regimen today 07/23/23: * J CARLOS is a 62 year old male presents to ED from local detention with fever and worsening diabetic foot infection of right great toe * Initial insulin orders last evening refused by patient * Blood sugars elevated this morning. Unsurprising, given HbA1c and insulin refusal last evening. * No changes to currently ordered regimen * Broad spectrum antibiotic regimen ordered in form of daptomycin and cefepime * Diet ordered at this time PLAN FOR INPATIENT GLYCEMIC CONTROL: * Hold outpatient oral diabetes medications * Basal insulin * Lantus 25 units SC qAM * Lantus 0-5 units SQ qHS (5 units if > 180 mg/dL) * Bolus insulin * NovoLog per scale ACHS or Q6hrs while NPO * Goal Range: Low 110 mg/dL - High 140 mg/dL * Correction Factor: 15 mg/dL/unit * Nutritional / Prandial insulin per carb ratio of 1 unit per 4 grams CHO consumed
[2023-07-28] MEDS: DAPTOmycin 750 MG in SYRINGE 0 ML IV SCH (15:26)
[2023-07-28] MEDS: BENZONATATE 100 MG CAPSULE PO SCH (15:27)
[2023-07-29] MEDS: INSULIN ASPART PER UNIT CHARGE SC SCH (00:06)
[2023-07-29 08:33] LABS: Creatinine Clr Calc Pharmacy 71.6 ml/min; Est GFR (African American) 90.2 ml/min; Est GFR (Non-African American) 77.9 ml/min
--- NOTE | 2023-07-29 09:07 | Orthopedic Progress Note ---
Date of Service July 29, 2023 Assessment & Plan (1) Osteomyelitis: Plan: Intraoperative cultures have grown out Staph aureus. Group B beta strep. Pathology pending. Wound is healing up well.. I think reasonable to discharge back to institution. Oral antibiotic x 7 days. Follow-up with me in 1 week. He may weight-bear as tolerated on his heel using an assistive device. (2) Diabetic ulcer of right great toe: Admission and Anticipated Discharge Date Admission Date: July 22, 2023 Subjective No problems noted. Pain is well-controlled. Physical Exam Physical Exam: Dressing changed. Dry. Minimal swelling. No significant fluid accumulation under the flap. Wound margins viable. Capillary refill less than 2 seconds throughout the flap. Skin wrinkles are present with minimal to no erythema. Swelling is mild. Results & Data Vital Signs (Past 12 Hours) Vital Signs Temp Pulse Resp BP Pulse Ox O2 Del Method 07/29/23 07:47 36.6 C 91 H 16 148/75 H 92 Room Air 07/29/23 07:02 85 16 94 Room Air 07/29/23 00:04 82 20 95 Room Air Laboratory Results Microbiology 07/25/23 16:31 Gram Stain - Final Toe,Right Great Aerobic and Anaerobic Culture - Preliminary Staphylococcus aureus Group B Beta Strep 07/25/23 16:31 Gram Stain - Final Toe,Right Great Aerobic and Anaerobic Culture - Preliminary Staphylococcus aureus Group B Beta Strep 07/22/23 17:05 Aerobic Blood Culture - Preliminary Blood Klebsiella pneumoniae Anaerobic Blood Culture - Final No growth in Anaerobic bottle after 5 days. 07/22/23 17:10 Aerobic Blood Culture - Final Blood No growth in Aerobic bottle after 5 days. Anaerobic Blood Culture - Final No growth in Anaerobic bottle after 5 days.
--- NOTE | 2023-07-29 10:13 | Pharmacy Report ---
Pharmacy Glycemic Short Note 2 - Date of Service July 29, 2023 - Glycemic Short BSG Results (Last 24 hours): 07/28/23 07/28/23 07/28/23 11:28 11:30 16:20 POC Glucose 370 H* 410 H* 369 H* 07/28/23 07/28/23 07/28/23 16:21 20:43 20:44 POC Glucose 340 H* 311 H* 291 H 07/28/23 07/29/23 23:45 07:42 POC Glucose 157 H 207 H OUTPATIENT ANTIDIABETIC REGIMEN: * Insulin glargine 10 units SC daily * Metformin 850 mg PO BIDM HbA1c: 9.7% (07/23/23) ASSESSMENT: 07/29/23: * Patient received total of 143 units of insulin yesterday, of which 30 units were basal insulin * Fasting BSG 207 mg/dL - anticipate BSGs to improve as steroids no longer ordered. Patient appears to be very sensitive to steroids - BSGs in 300-400s yesterday d/t one time dose of solumedrol 60 mg IV. Will continue with 25 uni ts of basal daily, anticipate patient needing 20-30 units /day of basal * Continue same novolog for today 07/28/23: * Td received 66 units of SQ insulin yesterday with BSGs 208, 164, 188, 262 mg/dL * On 07/26, basal insulin was slightly decreased based on drastic reduction in fasting over the previous 24 hours (282 -> 208 mg/dL). Fasting BSG very elevated today, 290 mg/dL. Patient was given a dose of methylprednisolone 60 mg IV early this morning which is likely the cause. Will increase basal insulin and give full 24 hour dose in AM. Will continue basal HS dose per scale this evening due to acute severe hyperglycemia but suspect we can d/c that after today. * Post prandial BSG elevation also likely due to methylprednisolone. Ordered an 7 unit IV regular insulin bolus to be given with lunch aspart. Tighten carb coverage. Suspect improvement throughout the day given no ongoing sterids. 07/26/23: * POD #1 s/p right great toe amputation - received 8 mg IV dexamethasone in OR * Blood sugars trended up throughout the day and into this morning, likely related to steroid administration and no additional insulin coverage * Will tighten parameters this morning and give increased basal dose * Will loosen again at lunch as effects from steroid dissipate 07/24/23: * Blood sugars improved throughout the day yesterday * Received 35 units of insulin (15 units of basal and 20 units of prandial/c orrectional bolus) * No changes anticipated to regimen today 07/23/23: * J CARLOS is a 62 year old male presents to ED from local skilled nursing with fever and worsening diabetic foot infection of right great toe * Initial insulin orders last evening refused by patient * Blood sugars elevated this morning. Unsurprising, given HbA1c and insulin refusal last evening. * No changes to currently ordered regimen * Broad spectrum antibiotic regimen ordered in form of daptomycin and cefepime * Diet ordered at this time PLAN FOR INPATIENT GLYCEMIC CONTROL: * Hold outpatient oral diabetes medications * Basal insulin * Lantus 25 units SC qAM * Bolus insulin * NovoLog per scale ACHS or Q6hrs while NPO * Goal Range: Low 110 mg/dL - High 140 mg/dL * Correction Factor: 15 mg/dL/unit * Nutritional / Prandial insulin per carb ratio of 1 unit per 4 grams CHO consumed
--- NOTE | 2023-07-29 15:18 | Hospitalist Progress Note ---
Date of Service July 29, 2023 Assessment & Plan (1) Diabetic ulcer of right great toe: (2) HIV (human immunodeficiency virus infection): (3) Hepatitis C: (4) Tobacco abuse: (5) Seizure disorder: Plan Sepsis POA Acute osteomyelitis of great toe status post right great toe amputation on 07/24/2021 Klebsiella pneumonia bacteremia 62-year-old male with history of HIV, hep C, diabetes, seizure disorder sent from [facility] for fever chills on background of right toe infection. Diabetic right toe infection-being treated at [facility] but developed fever and chills and send to ED. Foot MRI; great toe ulceration/infection, positive for osteomyelitis. Blood culture1/4 positive for Klebsiella pneumoniae Urine cultureno growth Duplex lower extremitynone diagnosis ankle brachial index. Patent vessel within right lower extremity. Repeat blood cultureno growth in 48 hours IntraOp culture- Staphylococcus species, group B beta strep Discussed with infectious disease; IntraOp cultures are sensitive to ceftriaxone. Klebsiella is also sensitive to ceftriaxone They recommend 6 weeks of IV ceftriaxone CBC, CMP and CRP weekly while on treatment. Rhinovirus infection Possible pneumonia secondary to rhinovirus Patient reports cough, sore throat. Respiratory viral panel positive for rhinovirus CTA chest shows patchy infiltrates bilaterally Continue on ceftriaxone and azithromycin. Droplet isolation Airway clearance therapy Hypertensionstarted on nifedipine 60 mg. Lisinopril increased to 10 mg once a day HIV-continue home meds Seizure disorder-on Keppra, continue Diabetes type 2 with peripheral neuropathy-continue insulin, adjust as indicated. Continue gabapentin. Pharmacy on board History of asthma Patient reports he has a history of asthma and smoking Exacerbation As needed nebs, albuterol Hypomagnesemia-repleted, recheck in am Mood disorder- on zofoft, zyprexa DVT prophylaxis-subcu Lovenox Disposition-patient hospitalized for acute osteomyelitis of great toe and bacteremia. PICC line Placed. IV antibiotics needs to be arranged prior to discharge to [facility]. Awaiting arrangement of antibiotics at [facility] Full code Time spent evaluating patient, direct bedside care, chart review, placing orders, interpretation of diagnostic studies, discussion with consultants, patient, and family members, as well as other required patient management activities is 50 minutes Please note the above document was generated using voice recognition software. It may contain grammatical, syntax or spelling errors. Any formal questions or concerns about the content, text or information contained within the body of this dictation should be directly addressed to the provider for clarification Admission and Anticipated Discharge Date Admission Date: July 22, 2023 Subjective Patient seen and examined at bedside. Comfortable; not in distress. Denies fever, chills, chest pain, shortness of breath, abdominal pain or urinary symptoms. No significant overnight events Review of Systems Review of Systems: All systems reviewed & are unremarkable except as noted in Subjective Physical Exam Physical Exam: General- oriented x 3, not in distress, speaks in sentences with no effort or accessory muscle use Eyes- anicteric Neck- no JVD Lungs-occasional crackles heard Heart- normal rate, regular rhythm; no murmurs Abdomen- normal bowel sounds, nondistended, soft, nontender Extremities- no pretibial edema, no calf tenderness. dressings in place in right foot. Neuro- alert, oriented x 3; no gross focal neurologic deficits Skin- warm & dry Results & Data Results & Data Vital Signs (Past 12 Hours) Vital Signs Temp Pulse Resp BP Pulse Ox O2 Del Method 07/29/23 11:22 86 16 97 Room Air 07/29/23 07:47 36.6 C 91 H 16 148/75 H 92 Room Air 07/29/23 07:45 Room Air 07/29/23 07:02 85 16 94 Room Air
[2023-07-30] MEDS: INSULIN ASPART PER UNIT CHARGE SC SCH (00:31)
[2023-07-30] MEDS: LANTUS PER UNIT CHARGE SQ SCH (09:23)
[2023-07-30] MEDS ORDERED: SODIUM CHLOR 7% 4 ML NEB NEB PRN (09:24)
--- NOTE | 2023-07-30 10:02 | Orthopedic Progress Note ---
Date of Service July 30, 2023 Assessment & Plan (1) Osteomyelitis: Plan: Intraoperative cultures have grown out Staph aureus. Group B beta strep. Blood cultures were positive for Klebsiella pneumonia Infectious disease recommendations ceftriaxone 2 g IV q.day for a total of 6 weeks from 07/26/23 through 09/06/23 daptomycin 750mg (about 8mg/kg) Q24 for a total of 6 weeks from 07/26/23 through 09/06/23 CBC with differential, CMP, CK weekly lab draw through 09/06/2023 CRP Q 2 weeks through 09/06/2023 patient will require ID follow-up in 5 weeks Consent for PICC line is in the chart and signed Follow-up with me in 1 week. He may weight-bear as tolerated on his heel using an assistive device. (2) Diabetic ulcer of right great toe: Admission and Anticipated Discharge Date Admission Date: July 22, 2023 Subjective This 62-year-old male seen for follow-up of a right great toe amputation due to osteomyelitis with cultures growing Staph aureus and group B beta strep. His blood cultures were also positive for Klebsiella pneumoniae. Patient was recently seen by infectious disease who recommended that the patient would need a PICC line and 6 weeks of antibiotics. Currently the patient denies chest pain, shortness of breath, fever, chills, sweats, nausea, vomiting, diarrhea or difficulty voiding. He also denies any numbness or tingling in his right lower extremity. Review of Systems Review of Systems: Please refer to HPI please refer to HPI Physical Exam Physical Exam: Right foot: Dressing is clean dry intact left in place. Patient is able to detect light sensation to touch over digits 2 through 5 in his right foot. He was able to perform active straight leg raise test. He is able to actively dorsi and plantarflex his foot. Results & Data Vital Signs (Past 12 Hours) Vital Signs Temp Pulse Resp BP Pulse Ox O2 Del Method 07/30/23 07:47 36.7 C 99 H 16 178/91 H 94 Room Air 07/30/23 07:15 91 H 16 91 Room Air Diagnostic Findings Laboratory Results WBC 9.82 K/ul (4.8-10.8) 07/28/23 05:58 RBC 3.52 M/uL (4.70-6.10) L 07/28/23 05:58 Hgb 10.4 g/dl (14.0-18.0) L 07/28/23 05:58 Hct 31.5 % (42.0-52.0) L 07/28/23 05:58 MCV 89.5 fL (80.0-100.0) 07/28/23 05:58 MCH 29.5 pg (25.0-34.0) 07/28/23 05:58 MCHC 33.0 g/dL (32.0-36.0) 07/28/23 05:58 RDW Std Deviation 41.7 fL (36.4-46.3) 07/28/23 05:58 RDW Coeff of Malachi 12.8 % (11.5-14.5) 07/28/23 05:58 Plt Count 276 K/uL (130-400) 07/28/23 05:58 MPV 11.4 fL (9.4-12.4) 07/28/23 05:58 Immature Gran % (Auto) 3.1 % 07/28/23 05:58 Neut % (Auto) 65.8 % 07/28/23 05:58 Lymph % (Auto) 17.9 % 07/28/23 05:58 [place] % (Auto) 10.1 % 07/28/23 05:58 Eos % (Auto) 2.4 % 07/28/23 05:58 Baso % (Auto) 0.7 % 07/28/23 05:58 Neut # (Auto) 6.46 K/uL (1.40-6.50) 07/28/23 05:58 Lymph # (Auto) 1.76 K/uL (1.20-3.40) 07/28/23 05:58 [place] # (Auto) 0.99 K/uL (0.11-0.59) H 07/28/23 05:58 Eos # (Auto) 0.24 K/uL (0.00-0.50) 07/28/23 05:58 Baso # (Auto) 0.07 K/uL (0.00-0.20) 07/28/23 05:58 Immature Gran # (Auto) 0.30 K/uL (0.01-0.20) H 07/28/23 05:58 ESR 87 mm/hr (0-20) H 07/23/23 05:18 PT 12.1 Seconds (9.0-12.0) H 07/22/23 17:05 INR 1.1 (0.9-1.1) 07/22/23 17:05 APTT 31 Seconds (21-31) 07/22/23 17:05 PTT Ratio 1.1 07/22/23 17:05 Sodium 133 mmol/L (136-145) L 07/28/23 05:58 Potassium 4.2 mmol/L (3.5-5.1) 07/28/23 05:58 Chloride 101 mmol/L (98-107) 07/28/23 05:58 Carbon Dioxide 23 mmol/L (21-32) 07/28/23 05:58 Anion Gap 9 (3-11) 07/28/23 05:58 BUN 17 mg/dl (6-23) 07/28/23 05:58 Creatinine 1.02 mg/dl (0.6-1.4) 07/29/23 07:55 Est Cr Clr Drug Dosing 71.6 ml/min 07/29/23 07:55 Est GFR ( Amer) 90.2 ml/min 07/29/23 07:55 Est GFR (Non-Af Amer) 77.9 ml/min 07/29/23 07:55 BUN/Creatinine Ratio 15.7 (10-20) 07/28/23 05:58 Glucose 260 mg/dl (70-99(Fasting)) H 07/28/23 05:58 POC Glucose 198 mg/dl (70-99) H 07/30/23 07:45 Estimat Average Glucose 232 mg/dl 07/23/23 05:18 Hemoglobin A1c 9.7 % (4.5-5.6) H 07/23/23 05:18 Lactate 0.9 mmol/L (0.4-2.0) 07/22/23 19:47 Calcium 8.7 mg/dl (8.6-10.3) 07/28/23 05:58 Magnesium 1.7 mg/dl (1.7-2.4) 07/24/23 21:34 Total Bilirubin 0.6 mg/dl (0.2-1.0) 07/23/23 05:18 AST 15 U/L (13-39) 07/23/23 05:18 ALT 7 U/L (7-52) 07/23/23 05:18 Alkaline Phosphatase 108 U/L (34-104) H 07/23/23 05:18 Total Creatine Kinase 666 U/L (30-223) H 07/29/23 07:55 Troponin I High Sens 9.7 pg/ml (0-20) 07/27/23 05:52 C-Reactive Protein 19.72 mg/dl (0-0.5) H 07/23/23 05:18 Total Protein 7.4 gm/dl (6.0-8.3) 07/23/23 05:18 Albumin 3.3 gm/dl (3.4-5.0) L 07/23/23 05:18 Globulin 4.1 gm/dl (2.5-4.0) H 07/23/23 05:18 Albumin/Globulin Ratio 0.8 (0.9-2) L 07/23/23 05:18 Procalcitonin 0.12 ng/ml (0-0.5) 07/22/23 17:05 Urine Color Yellow 07/23/23 Unknown Urine Appearance Cloudy (Clear) A 07/23/23 Unknown Urine pH 5.5 (4.5-7.5) 07/23/23 Unknown Ur Specific [place] 1.026 (1.000-1.030) 07/23/23 Unknown Urine Protein 1+ (Negative) H 07/23/23 Unknown Urine Glucose (UA) Trace (Negative) H 07/23/23 Unknown Urine Ketones Negative (Negative) 07/23/23 Unknown Urine Blood 1+ (Negative) H 07/23/23 Unknown Urine Nitrite Positive (Negative) A 07/23/23 Unknown Urine Bilirubin Negative (Negative) 07/23/23 Unknown Urine Urobilinogen Negative (Negative) 07/23/23 Unknown Ur Leukocyte Esterase 3+ (Negative) H 07/23/23 Unknown Urine WBC (Auto) >50 /hpf (0-5) H 07/23/23 Unknown Urine RBC (Auto) 0-2 /hpf (0-2) 07/23/23 Unknown U Hyaline Cast (Auto) 0-2 /lpf (0-2) 07/23/23 Unknown U Epithel Cells (Auto) 0-2 /hpf (0-2) 07/23/23 Unknown Urine Bacteria (Auto) None Seen (None Seen) 07/23/23 Unknown Nasal Screen MRSA (PCR) Negative (Negative) 07/23/23 Unknown Adenovirus (PCR) Not Detected (NotDetected) 07/27/23 12:00 B. pertussis DNA (PCR) Not Detected (NotDetected) 07/27/23 12:00 B.parapertussis DNA PCR Not Detected (NotDetected) 07/27/23 12:00 C. pneumoniae DNA (PCR) Not Detected (NotDetected) 07/27/23 12:00 Coronavirus OC43 (PCR) Not Detected (NotDetected) 07/27/23 12:00 Coronavirus HKU1 (PCR) Not Detected (NotDetected) 07/27/23 12:00 Coronavirus 229E (PCR) Not Detected (NotDetected) 07/27/23 12:00 SARS-CoV-2 (PCR) Not Detected (NotDetected) 07/27/23 12:00 Coronavirus NL63 (PCR) Not Detected (NotDetected) 07/27/23 12:00 Enterobacterales (PCR) DETECTED (NotDetected) A 07/22/23 17:05 Human Metapneumovir PCR Not Detected (NotDetected) 07/27/23 12:00 Influenza Type A (PCR) Not Detected (NotDetected) 07/27/23 12:00 Influenza Type B (PCR) Not Detected (NotDetected) 07/27/23 12:00 K. pneumoniae group (PCR) DETECTED (NotDetected) A 07/22/23 17:05 M. pneumoniae (PCR) Not Detected (NotDetected) 07/27/23 12:00 Parainfluenza 1 (PCR) Not Detected (NotDetected) 07/27/23 12:00 Parainfluenza 2 (PCR) Not Detected (NotDetected) 07/27/23 12:00 Parainfluenza 3 (PCR) Not Detected (NotDetected) 07/27/23 12:00 Parainfluenza 4 (PCR) Not Detected (NotDetected) 07/27/23 12:00 RSV (PCR) Not Detected (NotDetected) 07/27/23 12:00 Entero/Rhino (PCR) DETECTED (NotDetected) A 07/27/23 12:00 SARS-CoV-2, RNA, NAAT NEGATIVE (NEGATIVE) 07/22/23 21:47 mcr-1 [place] Res Gene PCR Not Detected (NotDetected) 07/22/23 17:05 blaIMP Car res Gene PCR Not Detected (NotDetected) 07/22/23 17:05 KPC-Carbap Res Gene PCR Not Detected (NotDetected) 07/22/23 17:05 blaNDM Car Res Gene PCR Not Detected (NotDetected) 07/22/23 17:05 OXA-48 Carbapenem Resis Gene (PCR) Not Detected (NotDetected) 07/22/23 17:05 blaVIM Car Res Gene PCR Not Detected (NotDetected) 07/22/23 17:05 CTX-M Gene Resistance (PCR) Not Detected (NotDetected) 07/22/23 17:05 Bld Cult ID Panel PCR See PCR Comment (NotDetected) 07/22/23 17:[address] 07/22/23 18:19 Exam(s): CT RIGHT FOOT With Contrast IV Amt: 93ML OPTIRAY 320 EXAM: CT Right Lower Extremity With Intravenous Contrast, Foot CLINICAL HISTORY: Reason for exam: poss osteomyelitis. TECHNIQUE: Axial computed tomography images of the right foot with intravenous contrast. CTDI is 25.12 mGy and DLP is 582.84 mGy-cm. Automated exposure control was utilized for the study. A dose lowering technique was utilized adhering to the principles of ALARA. CONTRAST: Patient received 93ML OPTIRAY 320 of IV contrast COMPARISON: No relevant prior studies available. FINDINGS: Chronic ulceration of the great toe, correlate with physical exam. No fluid collection or abscess. No periostitis or focal osteopenia to indicate osteomyelitis at this time. If there is continued concern for osteomyelitis, MRI is recommended to fully exclude. No metatarsal fracture. No Lisfranc malalignment. Intact base of the fifth metatarsal. Moderate callus formation plantar to the first and the fifth metatarsal heads. IMPRESSION: Chronic ulceration of the great toe, correlate with physical exam. No fluid collection or abscess. No periostitis or focal osteopenia to indicate osteomyelitis at this time. If there is continued concern for osteomyelitis, MRI is recommended to fully exclude. Electronically signed by: Lenard Vega MD 07/22/23 22:09 PM Foot MRI 07/24/23 00:06 Exam(s): MRI RIGHT FOOT W/WO Contrast IV Amt: 9cc gadavist EXAM: MR Right Lower Extremity Without and With Intravenous Contrast, Foot CLINICAL HISTORY: Reason for exam: r great toe infected chronic wound, r/o osteomyeli. TECHNIQUE: Multiplanar magnetic resonance images of the right foot without and with intravenous contrast. CONTRAST: Patient received 9cc gadavist of IV contrast COMPARISON: No relevant prior studies available. FINDINGS: Great toe ulceration/infection. No fluid collection or abscess. Positive for osteomyelitis of the great toe proximal and distal phalanx. No remaining areas of osteomyelitis. No metatarsal fracture. Dorsal subcutaneous edema of the midfoot. Atrophy and edema of the foot musculature, consistent with diabetes. IMPRESSION: Great toe ulceration/infection. No fluid collection or abscess. Positive for osteomyelitis of the great toe proximal and distal phalanx. Electronically signed by: Lenard Vega MD 07/24/23 01:46 AM Duplex Scan Lower Extremity Artery 07/24/23 08:05 RIGHT LOWER EXTREMITY ARTERIAL DOPPLER ULTRASOUND CLINICAL HISTORY: infection right great toe COMPARISON STUDY: No previous studies for comparison. TECHNIQUE: Bilateral ankle to brachial indices were attempted. Color and duplex Doppler sonography of the arterial system of the right lower extremity was perfo rmed. FINDINGS: Ankle to brachial indices could not be obtained due to vessel noncompressibility. Moderate calcified plaque was noted within the right lower extremity vessels. There was biphasic flow within the right common femoral and superficial femoral arteries. Biphasic flow is noted within the right popliteal artery. A mildly elevated peak systolic velocity of 205 cm/s within the right popliteal artery was noted. There is biphasic flow within the right posterior tibial and peroneal arteries. There was monophasic flow within the right anterior tibial and dorsalis pedis vessels. Vessels were patent. IMPRESSION: 1. Nondiagnostic ankle brachial indices due to vessel noncompressibility. 2. Moderate calcified atherosclerotic plaque within the right lower extremity. 3. Mildly elevated velocity within the right popliteal artery. This may reflect an underlying stenosis. 4. Patent vessels within the right lower extremity. Monophasic flow within the right anterior tibial artery and dorsalis pedis. ACT 112: Negative or not required by law. Electronically signed by: Boy Farrell M.D. 07/24/2023 2:07 PM Chest X-Ray 07/24/23 21:09 XR chest 1V portable HISTORY: Shortness of breath. COMPARISON: Chest 07/22/2023. FINDINGS: No pneumothorax. No pleural effusions. The heart remains mildly enlarged. The left lung is clear. There is mild central pulmonary vascular congestion without overt edema. Elevated right hemidiaphragm again noted. Right basilar linear densities have slightly progressed. IMPRESSION: 1. Right basilar linear densities have slightly progressed. This favors atelectasis. A pneumonia could also have a similar appearance. 2. Cardiomegaly and mild congestive change. ACT 112: Negative or not required by law. Electronically signed by: Severiano Mathew M.D. 07/25/2023 7:40 AM Toe X-Ray 07/25/23 13:30 FL toe RT 2V CLINICAL HISTORY: RIGHT GREAT TOE AMPUTATION COMPARISON STUDY: CT 07/22/2023 FLUOROSCOPY TIME: 1.4 seconds FLUOROSCOPY IMAGES: 1 EXPOSURE DOSE: 0.06 mGy FINDINGS: Status post amputation of the first digit at the level of the metatarsal phalangeal joint. Expected postoperative soft tissue swelling with deep tissue air. Cortical thickening of the third metatarsal. No unexpected opaque foreign bodies. IMPRESSION: Fluoroscopic assistance as above. ACT 112: Negative or not required by law. Electronically signed by: John Galarza M.D. 07/25/2023 4:56 PM Chest CTA 07/26/23 21:43 Exam(s): CTA CHEST IV Amt: 118 ml opti 320 EXAM: CT Angiography Chest With Intravenous Contrast CLINICAL HISTORY: Reason for exam: PE. TECHNIQUE: Axial computed tomographic angiography images of the chest with intravenous contrast. CTDI is 27.63 mGy and DLP is 857.53 mGy-cm. Automated exposure control was utilized for the study. A dose lowering technique was utilized adhering to the principles of ALARA. MIP reconstructed images were created and reviewed. COMPARISON: No relevant prior studies available. FINDINGS: Pulmonary arteries: Unremarkable. No pulmonary embolism. Aorta: No acute findings. No thoracic aortic aneurysm. Lungs: Mild scattered patchy areas of infiltration, predominantly in the upper lobes. The largest is near the left lung apex. Bands of atelectasis are seen within the right middle lobe and right lower lobe. No mass. Pleural space: Unremarkable. No significant effusion. No pneumothorax. Heart: Unremarkable. No cardiomegaly. No significant pericardial effusion. No evidence of RV dysfunction. Bones/joints: No acute fracture. No dislocation. Soft tissues: Unremarkable. Lymph nodes: Unremarkable. No enlarged lymph nodes. Kidneys and ureters: Mild right perinephric stranding and fluid. IMPRESSION: No evidence of pulmonary emboli. Numerous small patchy areas of scattered infiltration bilaterally. Incompletely seen mild perinephric stranding/fluid on the right. Electronically signed by: Chencho Tuttle MD 07/26/23 23:23 PM
--- NOTE | 2023-07-30 16:27 | Discharge Summary ---
Date of Service July 30, 2023 Admission HPI Per Admitting Provider 62-year-old male from [facility] who was sent to the ED today for infection in the right great toe. He states it has been there for 5 months and never completely healed. He does not have any sensation in the great toe. He has been treated with antibiotics and getting wound care at the [facility] however patient developed fever, chills, shaking and increased pain and sent to the ED. Patient was being followed by wound care at the correction[facility] facility. Workup in ED shows normal WBC, negative Pro-Isidoro and lactate, magnesium 1.3 otherwise unremarkable labs. Chest x-ray with no acute finding. Patient started on Dapto and cefepime and hospitalist was consulted for further management. He feels fine currently. He does smoke ecigarette. No chest pain, SOB, N/V or other issues. Admission Exam Per Admitting Provider General: Lying comfortably in bed, not in distress, on room air HEENT: EOMI, ALEXIS, MMM Chest: Clear breath sounds bilaterally, no wheezes or crackles CVS: Regular rate and rhythm, normal heart sounds, no murmur Abdomen: Soft, non tender, not distended, normal bowel sounds Neuro: Awake, alert, oriented, conversing well, non focal Extremities: Infection of right great toe noted on medial side with no purulence or active discharge Principal Diagnosis Sepsis POA Acute osteomyelitis of great toe status post right great toe amputation on 07/25/2023 Klebsiella pneumonia bacteremia Rhinovirus infection Possible pneumonia secondary to rhinovirus Discharge Exam General- oriented x 3, not in distress, speaks in sentences with no effort or accessory muscle use Eyes- anicteric Neck- no JVD Lungs-occasional crackles heard Heart- normal rate, regular rhythm; no murmurs Abdomen- normal bowel sounds, nondistended, soft, nontender Extremities- no pretibial edema, no calf tenderness. dressings in place in right foot. Neuro- alert, oriented x 3; no gross focal neurologic deficits Skin- warm & dry Discharge Data Allergies Allergy/AdvReac Type Severity Reaction Status Date / Time No Known Allergies Allergy Unverified 07/01/23 07:55 Consultations 07/22/23 18:59 ED Decision to Admit Stat 07/25/23 17:47 Consult Orthopedic Surgery Routine 07/26/23 08:25 Consult Infectious Diseases Routine Procedures Performed Operation Date: 07/25/23 13:30 Actual Procedures p Right Great Toe Amputation(Right) - Reese Magallanes MD Ordered Studies 07/22/23 18:19 CT foot RT w con Stat 07/24/23 00:06 MR foot RT wo/w con Routine 07/24/23 08:05 US arterial duplex LE RT Routine 07/25/23 13:30 FL toe RT 2V Routine 07/26/23 21:43 CT angio chest PE protocol Stat Hospital Course (1) Diabetic ulcer of right great toe: (2) HIV (human immunodeficiency virus infection): (3) Hepatitis C: (4) Tobacco abuse: (5) Seizure disorder: Plan Sepsis POA Acute osteomyelitis of great toe status post right great toe amputation on 07/24/2021 Klebsiella pneumonia bacteremia 62-year-old male with history of HIV, hep C, diabetes, seizure disorder sent from [facility] for fever chills on background of right toe infection. Diabetic right toe infection-being treated at [facility] but developed fever and chills and send to ED. Foot MRI; great toe ulceration/infection, positive for osteomyelitis. Blood culture1/4 positive for Klebsiella pneumoniae Urine cultureno growth Duplex lower extremitynone diagnosis ankle brachial index. Patent vessel within right lower extremity. Repeat blood cultureno growth in 48 hours IntraOp culture- Staphylococcus species, group B beta strep Discussed with infectious disease; IntraOp cultures are sensitive to ceftriaxone. Klebsiella is also sensitive to ceftriaxone They recommend 6 weeks of IV ceftriaxone CBC, CMP and CRP weekly while on treatment. PICC line was placed at discharge, instruction given to [facility] to remove PICC line after antibiotics are completed. Rhinovirus infection Possible pneumonia secondary to rhinovirus Patient reports cough, sore throat. Respiratory viral panel positive for rhinovirus CTA chest shows patchy infiltrates bilaterally Treated with ceftriaxone and azithromycin during the hospital Hypertensionstarted on nifedipine 60 mg. Lisinopril increased to 10 mg once a day Please note the above document was generated using voice recognition software. It may contain grammatical, syntax or spelling errors. Any formal questions or concerns about the content, text or information contained within the body of this dictation should be directly addressed to the provider for clarification Total Time Total Time Spent Total Time Spent (In Minutes): 35 Total Time Includes: Examination of the Patient, Discharge Planning, Medication Reconciliation, Communication With Other Providers and Other Discharge Plan Discharge Items [facility] Disposition: [facility] Reason For Visit: INFECTED TOE Discharge Diagnosis: Sepsis POA Acute osteomyelitis of great toe status post right great toe amputation on 07/24/2021 Klebsiella pneumonia bacteremia Rhinovirus infection Possible pneumonia secondary to rhinovirus Condition on Discharge: Fair Activity: Resume your previous activity Non-emergency contact: Primary Care Provider Call non-emergency contact if: you have any medication questions and your symptoms worsen Follow-up/Referrals: Olga BERMAN [Primary Care Provider] - Reese Magallanes MD [Surgeon] - (Dr. Magallanes would like to see patient in the office on 08/01 please call to schedule appointment [phone]) Diet: Regular Addtl Attending Provider Instructions: You were admitted to the hospital due to infection of great toe of right foot. You underwent surgery by orthopedics on July 25, 2023. Please follow the orthopedic instructions below Continue with dressing in place, keep dry and clean Change dressing daily. Nonadherent dressing Adaptic or Xeroform. 4 x 4's and then wrap with Rahat bandage. Wear post op shoe for weightbearing at all times. Assistive device. Cane or walker. Bear weight on heel. If any concerns, changes in symptoms, or questions contact office at [phone] Dr. Magallanes would like patient to follow up in the office in one week, please call to schedule [phone] Infectious disease recommends IV ceftriaxone 2 g IV every 24 hours till September 06, 2023. You are seen by infectious disease doctor from [facility]. Please make an appointment with them in 5 weeks for follow-up. You need CBC with differential, CMP, CRP every week on Fridays while you are on antibiotics. Remove PICC line after completion of the antibiotics. Other adjustment done to your medication regimens are: 1) Hypertensionlisinopril is increased to 10 mg once a day, nifedipine 60 mg once a day is added for better blood pressure control 2) Type 2 diabetes mellitusglargine is increased to 20 units daily, also short acting insulin(aspart) to be taken 10 units before meals Pending Studies at Discharge: No Stand-Alone Forms: My [facility] Skilled Items Patient informed of condition?: No Discharge Level of Care: Other Communicable Disease: No Discharge Prognosis: Stable Lines: PICC Urinary Catheter: No Medications and DC Order Prescriptions: New nifedipine [Procardia XL] 30 mg Tablet Extended Release 24hr 60 mg PO QAM Qty: 30 0RF insulin glargine [Lantus U-100 Insulin] 100 unit/mL Solution 30 unit subcut DAILY Qty: 10 0RF acetaminophen [Tylenol Extra Strength] 500 mg Tablet 500 mg PO Q4H PRN (Reason: fever or pain) Qty: 30 0RF benzonatate 100 mg Capsule 100 mg PO TID 5 Days Qty: 15 0RF insulin aspart U-100 [Novolog U-100 Insulin aspart] 100 unit/mL Solution 10 unit SC AC Qty: 10 0RF lisinopril 10 mg Tablet 10 mg PO QAM Qty: 30 0RF Continued rosuvastatin 5 mg tablet 5 mg PO DAILY Dovato 50-300 mg tablet 1 tab PO DAILY sertraline 50 mg Tablet 150 mg PO QAM lactulose 10 gram/15 mL (15 mL) Solution 20 g PO QID PRN (Reason: .) levetiracetam 500 mg Tablet 500 mg PO BID levetiracetam [Keppra] 1,000 mg Tablet 1,000 mg PO BID metformin 850 mg Tablet 850 mg PO BID gabapentin 600 mg Tablet 1,800 mg PO TID olanzapine 15 mg Tablet 15 mg PO HS Discontinued vancomycin in 0.9 % sodium chl 1 gram/200 mL piggyback 1 g IV Q12H Novolin R Regular U100 Insulin 100 unit/mL solution 1 sliding scale dose subcut USEASDIRECTD insulin glargine 100 unit/mL cartridge 10 unit subcut DAILY lisinopril 2.5 mg Tablet 2.5 mg PO DAILY Discharge Orders: Discharge Order (Routine); Ordered 07/30/23 Ordered By: Serafin Medina Admission Data Admit Date/Time: 07/22/23 19:07 Attending Provider: Serafin Medina Admit Provider: Garret Rios Primary Care Provider: Olga BERMAN Other Providers: Garret Rios; Mane Parikh; Tatiana Branham; José Rizo I.; Gomez Hightower II; Vika Vigil; Cooper Cid; Chencho Ann; Francesca Mcconnell; Jose Miller; Ishan Hernandez; Reese Magallanes Other Interventions: Discharge Summary Assessment (RN) Last Done: 07/30/23 12:03
[2023-07-30] MEDS: CARBOHYDRATES FOR HYPOGLYCEMIA PO PRN (16:30)
--- NOTE | 2023-07-31 15:36 | Anesthesiology Progress Note ---
Date of Service July 31, 2023 Anesthesia Post Procedure Vital Signs Vital Signs: Temp Pulse Pulse Resp BP BP Pulse Ox 07/30/23 21:13 36.7 C 105 H 99 H 16 138/75 178/91 H 94 Pain Intensity Great Toe: Pain Intensity: 8 Transfer of Care Handoff Completed per policy Notes Mental Status: alert / awake / arousable and participated in evaluation Patient Amnestic to Procedure: Yes Nausea / Vomiting: adequately controlled Pain: adequately controlled Airway Patency, RR, SpO2: stable & adequate BP & HR: stable & adequate Hydration State: stable & adequate Anesthetic Complications: no major complications apparent and Pt Satisfied with anesthetic care
[2023-08-03] MEDS ORDERED: cefTRIAXone SODIUM 2,000 MG in DEXTROSE 5 % MINI-B 50 ML IV SCH (11:00)
== END 2023-07-30 19:00 | DRG 969 ==
LOC: ED 16:42 → SUATTDRO 19:07 → EDINP 19:07 → 3E 22:44